=== PATIENT | female | born 1960 | race Two or more races ===

== ENCOUNTER 2018-02-05 15:06 | Inpatient (IN) | payer BC ==
[~2018-02-05] VITALS: Ht 160 cm; Wt 88.9 kg
[~2018-02-05 15:06] MED LIST: ALPR1TAB7 PO; DULO60CA PO; GABA800T97 PO; INSUINJ48 SC; LISI-646 PO; METO-158 PO; OXY10CRT PO; PROAIR IN
[2018-02-05] MEDS ORDERED: ASPirin 81 mg TAB PO ONE (15:45)
[2018-02-05 16:02] LABS: Basophils # (auto) 0.1 uL; Basophils % (auto) 1.2 % (0.0-2.0); Eosinophils # (auto) 0.4 uL; Eosinophils % (auto) 4.9 % (0.0-7.0); Hematocrit 48.3 % (36.0-46.0); Lymphocytes # (auto) 2.9 uL; Lymphocytes % (auto) 34.6 % (10.0-50.0); Mean Corpuscular Hemoglobin 33.5 pg (28.0-32.0); Mean Corpuscular Hgb Conc. 35.3 g/dL (32.0-36.0); Mean Corpuscular Volume 94.9 fL (80.0-100.0); Monocytes # (auto) 0.8 uL; Monocytes % (auto) 9.6 % (0.0-12.0); Neutrophils # (auto) 4.1 uL; Neutrophils % (auto) 49.7 % (37.0-80.0); Nucleated Red Blood Cells % 0.1 %; Platelet Count (auto) 220 10^3/uL (140-450); Red Blood Cells 5.09 10^6/uL (4.0-5.20); Red Cell Distribution Width 13.3 % (11.8-14.3); White Blood Cell 8.3 10^3/uL (4.4-10.8)
[2018-02-05] MEDS ORDERED: ALBUTEROL SULF 2.5 MG/0.5ML(0.5%) NEB SOLN NEB ONE (16:15)
[2018-02-05] MEDS ORDERED: IPRATROPIUM BROM 0.5 MG/2.5ML INH SOL NEB ONE (16:15)
[2018-02-05 16:20] LABS: Alanine Aminotransferase 33 U/L (13-56); Albumin 3.9 g/dL (3.4-5.0); Anion Gap 7 (5-15); Aspartate Aminotransferase 22 U/L (15-37); BUN/Creatinine Ratio 11.8; Blood Urea Nitrogen 12 mg/dL (7-18); Calcium 8.9 mg/dL (8.5-10.1); Carbon Dioxide 27 mmol/L (21-32); Chloride 109 mmol/L (98-107); GFR African American 71 mL/min; GFR Non-African American 59 mL/min; Glucose 81 mg/dL (74-106); Potassium 4.3 mmol/L (3.5-5.1); Sodium 143 mmol/L (136-145)
[2018-02-05 16:24] LABS: INR 0.95 (0.9-1.15); Partial Thromboplastin Time 35.2 sec (23.78-33.04); Prothrombin Time 10.2 sec (9.27-12.13)
[2018-02-05 16:25] LABS: Alkaline Phosphatase 54 U/L (45-117); Bilirubin, Total 0.2 mg/dL (0.2-1.0); Total Protein 7.6 g/dL (6.4-8.2)
[2018-02-05] MEDS ORDERED: IPRATROPIUM BROM 0.5 MG/2.5ML INH SOL NEB PRN (21:00)
[2018-02-05] MEDS ORDERED: ONDANSETRON HCL 4 MG/2 ML VIAL IV PRN (21:00)
[2018-02-05] MEDS ORDERED: TEMAZEPAM 15 MG CAP PO PRN (21:00)
[2018-02-05] MEDS ORDERED: ALBUTEROL SULF 2.5 MG/0.5ML(0.5%) NEB SOLN NEB PRN (21:00)
[2018-02-05] MEDS ORDERED: ACETAMINOPHEN 325 MG TAB PO PRN (21:00)
[2018-02-05] MEDS ORDERED: NITROGLYCERIN 0.4 MG SL TAB SL PRN (21:00)
[2018-02-05] MEDS ORDERED: ALPRAZolam 0.25 MG TAB PO PRN (21:00)
[2018-02-05] MEDS ORDERED: HYDROcodone-ACET 5/325MG TAB PO PRN (21:00)
[2018-02-05] MEDS ORDERED: MORPHINE SULF INJ 2 MG/ML SYRINGE 1ML IV PRN (21:00)
[2018-02-05 21:10] VITALS: BP 145/93
[2018-02-05] MEDS ORDERED: LISI30TA36 PO (21:10)
[2018-02-05] MEDS ORDERED: PREG150C PO (21:12)
[2018-02-05] MEDS ORDERED: MELO1TAB73 PO (21:13)
[2018-02-05] MEDS ORDERED: ISOS60TA24 PO (21:18)
[2018-02-05] MEDS ORDERED: METO-158 PO (21:18)
[2018-02-05] MEDS ORDERED: ATOR10TA52 PO (21:18)
[2018-02-05] MEDS ORDERED: CLOP75TA41 PO (21:18)
[2018-02-05] MEDS ORDERED: FENO1TAB42 OR (21:18)
[2018-02-05] MEDS ORDERED: DULO60CA PO (21:18)
[2018-02-05 21:55] VITALS: BP 143/72
[2018-02-05 23:00] VITALS: BP 143/72
[2018-02-05] MEDS: ENOXAPARIN SOD 40 MG/0.4 ML SYRINGE SC SCH (23:50)
[2018-02-05] MEDS: ISOSORBIDE MONONITRATE 20 MG TAB PO SCH (23:51)
[2018-02-05] MEDS: ATORVASTATIN 20 MG TAB PO SCH (23:51)
[2018-02-05] MEDS: METOPROLOL TARTRATE 50 MG TAB PO SCH (23:52)
[2018-02-05] MEDS: GABAPENTIN 400 MG CAP PO SCH (23:52)
[2018-02-05] MEDS: FAMOTIDINE 20 MG TAB PO SCH (23:52)
[2018-02-05] MEDS: PREGABALIN CAPSULE 75 MG CAP PO SCH (23:52)
[2018-02-06 05:00] VITALS: BP 136/92
[2018-02-06] MEDS: GABAPENTIN 400 MG CAP PO SCH ×2 (05:16→14:00)
[2018-02-06 07:43] LABS: Basophils # (auto) 0.1 uL; Basophils % (auto) 0.7 % (0.0-2.0); Eosinophils # (auto) 0.4 uL; Eosinophils % (auto) 5.4 % (0.0-7.0); Hematocrit 46.5 % (36.0-46.0); Hemoglobin 16.2 g/dL (12.2-16.2); Lymphocytes # (auto) 2.1 uL; Mean Corpuscular Hemoglobin 33.5 pg (28.0-32.0); Mean Corpuscular Hgb Conc. 34.7 g/dL (32.0-36.0); Mean Corpuscular Volume 96.5 fL (80.0-100.0); Monocytes # (auto) 0.7 uL; Neutrophils # (auto) 4.1 uL; Neutrophils % (auto) 55.9 % (37.0-80.0); Nucleated Red Blood Cells % 0.1 %; Platelet Count (auto) 192 10^3/uL (140-450); Red Blood Cells 4.82 10^6/uL (4.0-5.20); Red Cell Distribution Width 13.6 % (11.8-14.3); White Blood Cell 7.4 10^3/uL (4.4-10.8)
[2018-02-06 08:02] LABS: Albumin 3.2 g/dL (3.4-5.0); BUN/Creatinine Ratio 16.2; Calcium 8.3 mg/dL (8.5-10.1)
[2018-02-06 08:04] LABS: Bilirubin, Total 0.4 mg/dL (0.2-1.0); Total Protein 6.5 g/dL (6.4-8.2)
[2018-02-06 09:00] VITALS: BP 153/81
[2018-02-06] MEDS: FAMOTIDINE 20 MG TAB PO SCH ×2 (10:00→21:58)
[2018-02-06] MEDS: ENOXAPARIN SOD 40 MG/0.4 ML SYRINGE SC SCH (10:09)
[2018-02-06] MEDS: ASPirin 81 mg TAB PO SCH (10:10)
[2018-02-06] MEDS: CLOPIDOGREL BISULFATE 75 MG TAB PO SCH (10:10)
[2018-02-06] MEDS: LISINOPRIL 20 MG TAB PO SCH (10:28)
[2018-02-06] MEDS: METOPROLOL TARTRATE 50 MG TAB PO SCH ×2 (10:29→21:49)
[2018-02-06] MEDS: PREGABALIN CAPSULE 75 MG CAP PO SCH ×2 (11:39→21:47)
[2018-02-06] MEDS: NICOTINE 21MG/24 HR TOPICAL PATCH TD SCH (11:52)
[2018-02-06] MEDS ORDERED: DEXTROSE (50%) 50ML SYRG IV PRN (12:00)
[2018-02-06] MEDS: ISOSORBIDE MONONITRATE 20 MG TAB PO SCH ×2 (12:03→21:56)
[2018-02-06 13:00] VITALS: BP 156/95
[2018-02-06 16:48] VITALS: BP 119/68
[2018-02-06] MEDS: InsuLIN REG 1unit/0.01ml Soln (100units/ml) SC SCH ×2 (17:00→21:58)
[2018-02-06] MEDS ORDERED: ACCU-CHEK COMFORT CURVE STRIP VI SCH (17:00)
[2018-02-06] MEDS: ACCU-CHEK COMFORT CURVE STRIP VI SCH ×2 (17:18→21:58)
[2018-02-06] MEDS: DULoxetine HCL 30 MG CAP PO SCH (17:18)
[2018-02-06] MEDS: ALPRAZolam 0.5 MG TAB PO SCH (21:47)
[2018-02-06] MEDS: ATORVASTATIN 20 MG TAB PO SCH (21:48)
[2018-02-06 22:00] VITALS: BP 148/87
[2018-02-07 05:00] VITALS: BP 109/64
[2018-02-07] MEDS: ALPRAZolam 0.5 MG TAB PO SCH ×3 (06:10→22:38)
[2018-02-07] MEDS: InsuLIN REG 1unit/0.01ml Soln (100units/ml) SC SCH ×4 (06:11→22:39)
[2018-02-07] MEDS: ACCU-CHEK COMFORT CURVE STRIP VI SCH ×4 (06:11→22:39)
[2018-02-07 06:55] LABS: Basophils # (auto) 0.1 uL; Basophils % (auto) 0.8 % (0.0-2.0); Eosinophils # (auto) 0.4 uL; Eosinophils % (auto) 5.5 % (0.0-7.0); Hematocrit 45.1 % (36.0-46.0); Hemoglobin 15.5 g/dL (12.2-16.2); Lymphocytes # (auto) 2.7 uL; Lymphocytes % (auto) 40.4 % (10.0-50.0); Mean Corpuscular Hemoglobin 32.6 pg (28.0-32.0); Mean Corpuscular Hgb Conc. 34.4 g/dL (32.0-36.0); Mean Corpuscular Volume 94.7 fL (80.0-100.0); Monocytes # (auto) 0.6 uL; Monocytes % (auto) 9.4 % (0.0-12.0); Neutrophils # (auto) 2.9 uL; Neutrophils % (auto) 43.9 % (37.0-80.0); Platelet Count (auto) 188 10^3/uL (140-450); Red Blood Cells 4.77 10^6/uL (4.0-5.20); Red Cell Distribution Width 13.2 % (11.8-14.3); White Blood Cell 6.6 10^3/uL (4.4-10.8)
[2018-02-07 07:14] LABS: Calcium 8.4 mg/dL (8.5-10.1); Potassium 3.7 mmol/L (3.5-5.1)
[2018-02-07 07:15] LABS: BUN/Creatinine Ratio 19.4
[2018-02-07 08:32] VITALS: BP 105/71
[2018-02-07] MEDS: ASPirin 81 mg TAB PO SCH (09:48)
[2018-02-07] MEDS: DULoxetine HCL 30 MG CAP PO SCH (09:48)
[2018-02-07] MEDS: ISOSORBIDE MONONITRATE 20 MG TAB PO SCH ×2 (09:51→22:38)
[2018-02-07] MEDS: PREGABALIN CAPSULE 75 MG CAP PO SCH ×2 (09:51→22:38)
[2018-02-07] MEDS: CLOPIDOGREL BISULFATE 75 MG TAB PO SCH (09:51)
[2018-02-07] MEDS: METOPROLOL TARTRATE 50 MG TAB PO SCH ×2 (09:51→22:39)
[2018-02-07] MEDS: LISINOPRIL 20 MG TAB PO SCH (09:52)
[2018-02-07] MEDS: ENOXAPARIN SOD 40 MG/0.4 ML SYRINGE SC SCH (09:52)
[2018-02-07] MEDS: NICOTINE 21MG/24 HR TOPICAL PATCH TD SCH (09:52)
[2018-02-07] MEDS ORDERED: DULoxetine HCL 30 MG CAP PO SCH (10:00)
[2018-02-07] MEDS: FAMOTIDINE 20 MG TAB PO SCH ×2 (10:00→22:00)
[2018-02-07] MEDS ORDERED: IOHEXOL 350 MG/ML 100ML IJ ONE (11:03)
[2018-02-07 12:06] VITALS: BP 157/94
[2018-02-07 16:29] VITALS: BP 80/53
[2018-02-07 16:34] VITALS: BP 111/62
[2018-02-07 22:00] VITALS: BP 142/73
[2018-02-07] MEDS: ATORVASTATIN 20 MG TAB PO SCH (22:38)
[2018-02-08] VITALS (7 sets, daily range): BP systolic 92–139; BP diastolic 64–79
[2018-02-08] MEDS: ALPRAZolam 0.5 MG TAB PO SCH ×2 (06:08→14:14)
[2018-02-08] MEDS: ACCU-CHEK COMFORT CURVE STRIP VI SCH ×3 (06:18→17:35)
[2018-02-08] MEDS: InsuLIN REG 1unit/0.01ml Soln (100units/ml) SC SCH ×3 (06:18→17:00)
[2018-02-08] MEDS ORDERED: ADENOSINE 75 MG in GIVE UN-DILUTED 0 ML IV STA (08:29)
[2018-02-08] MEDS: ENOXAPARIN SOD 40 MG/0.4 ML SYRINGE SC SCH (09:24)
[2018-02-08] MEDS: CLOPIDOGREL BISULFATE 75 MG TAB PO SCH (09:24)
[2018-02-08] MEDS: ASPirin 81 mg TAB PO SCH (09:24)
[2018-02-08] MEDS: DULoxetine HCL 30 MG CAP PO SCH (09:25)
[2018-02-08] MEDS: PREGABALIN CAPSULE 75 MG CAP PO SCH (09:26)
[2018-02-08] MEDS: FAMOTIDINE 20 MG TAB PO SCH (09:26)
[2018-02-08] MEDS: METOPROLOL TARTRATE 50 MG TAB PO SCH (09:26)
[2018-02-08] MEDS: ISOSORBIDE MONONITRATE 20 MG TAB PO SCH (09:26)
[2018-02-08] MEDS: LISINOPRIL 20 MG TAB PO SCH (09:26)
[2018-02-08] MEDS: NICOTINE 21MG/24 HR TOPICAL PATCH TD SCH (09:27)
[2018-03-10] MEDS ORDERED: ASPI81CH43 PO (11:21)
[2018-03-10] MEDS ORDERED: INSU1INJ14 SC (11:29)
[2018-03-10] MEDS ORDERED: OMEP20TA PO (11:30)
[2018-03-10] MEDS ORDERED: NITR0.4S29 SL (11:30)
== END 2018-02-08 18:38 | disposition home or self-care (01) | DRG 302 ==
LOC: ER 15:06 → TELE 15:07 → TELE-CENTR 21:50
PROVIDERS: ADMIT Nurse Practitioner; ATTEND Internal Medicine
DX: I25.10 Atherosclerotic heart disease of native coronary artery without angina pectoris (principal); I50.23 Acute on chronic systolic (congestive) heart failure; J44.1 Chronic obstructive pulmonary disease with (acute) exacerbation; E78.5 Hyperlipidemia, unspecified; F17.210 Nicotine dependence, cigarettes, uncomplicated; I11.0 Hypertensive heart disease with heart failure; E11.9 Type 2 diabetes mellitus without complications; I70.0 Atherosclerosis of aorta; K80.20 Calculus of gallbladder without cholecystitis without obstruction; Z82.49 Family history of ischemic heart disease and other diseases of the circulatory system; Z82.5 Family history of asthma and other chronic lower respiratory diseases; Z83.3 Family history of diabetes mellitus; Z95.1 Presence of aortocoronary bypass graft; Z95.5 Presence of coronary angioplasty implant and graft; Z79.4 Long term (current) use of insulin; Z88.8 Allergy status to other drugs, medicaments and biological substances
CPT/HCPCS: 36415; 71045; 71275; 78452; 80048; 80053; 82962; 83036; 83735; 83880; 84443; 84484; 85025; 85379; 85610; 85730; 93005; 93017; 93306; 94640; 94761; J0153; J1815

== ENCOUNTER → 2018-03-10 | Outpatient (CLI) | payer BC ==
[~2018-03-10] MED LIST changes: +ASPI81CH43 PO; +ATOR10TA52 PO; +CLOP75TA41 PO; +FENO1TAB42 OR; +INSU1INJ14 SC; +ISOS60TA24 PO; -LISI-646 PO; +LISI30TA36 PO; +MELO1TAB73 PO; +NITR0.4S29 SL; +OMEP20TA PO; +PREG150C PO
[2018-03-10 08:15] VITALS: BP 125/77
[2018-03-10 08:50] VITALS: BP 132/81
[2018-03-10 12:36] LABS: Basophils # (auto) 0.1 uL; Eosinophils # (auto) 0.5 uL; Eosinophils % (auto) 6.1 % (0.0-7.0); Hematocrit 48.2 % (36.0-46.0); Hemoglobin 16.6 g/dL (12.2-16.2); Lymphocytes # (auto) 2.2 uL; Lymphocytes % (auto) 26.5 % (10.0-50.0); Mean Corpuscular Hemoglobin 32.7 pg (28.0-32.0); Mean Corpuscular Hgb Conc. 34.4 g/dL (32.0-36.0); Mean Corpuscular Volume 94.9 fL (80.0-100.0); Monocytes # (auto) 0.6 uL; Neutrophils # (auto) 4.9 uL; Neutrophils % (auto) 59.4 % (37.0-80.0); Nucleated Red Blood Cells % 0.3 %; Platelet Count (auto) 208 10^3/uL (140-450); Red Blood Cells 5.08 10^6/uL (4.0-5.20); Red Cell Distribution Width 13.2 % (11.8-14.3); White Blood Cell 8.2 10^3/uL (4.4-10.8)
[2018-03-10 12:38] LABS: BUN/Creatinine Ratio 11.4; Calcium 8.8 mg/dL (8.5-10.1); Potassium 3.6 mmol/L (3.5-5.1)
[2018-03-10 12:44] LABS: INR 0.93 (0.9-1.15); Partial Thromboplastin Time 35.7 sec (23.78-33.04)
== END | disposition home or self-care (01) ==
LOC: Rad HDHVI 08:05
PROVIDERS: ATTEND Internal Medicine Cardiovascular Disease
DX: Z01.818 Encounter for other preprocedural examination (principal); D64.9 Anemia, unspecified; R79.1 Abnormal coagulation profile; I10 Essential (primary) hypertension; E11.9 Type 2 diabetes mellitus without complications; R94.31 Abnormal electrocardiogram [ECG] [EKG]
CPT/HCPCS: 36415; 80048; 85025; 85610; 85730; 93005; G0463

== ENCOUNTER 2018-03-11 08:30 | Inpatient (IN) | payer BC ==
[~2018-03-11] VITALS: Ht 162.6 cm; Wt 89.8 kg
[2018-03-11] MEDS ORDERED: fentaNYL CITRATE 100 MCG/2 ML VL ONE (11:20)
[2018-03-11] MEDS ORDERED: ANGIOMAX 250 MG VIAL IV ONE (11:20)
[2018-03-11] MEDS ORDERED: SODIUM CHL 0.9% 50 ML ONE (11:20)
[2018-03-11] MEDS ORDERED: MIDAZOLAM HCL 1MG/1ML-2 ML VIAL ONE (11:20)
[2018-03-11] MEDS ORDERED: LIDOCAINE 2% (LOCAL ANESTH.) PF 5ml SDV ONE (11:21)
[2018-03-11] MEDS ORDERED: IOHEXOL 350 MG/ML 100ML IJ ONE (11:21)
[2018-03-11] MEDS ORDERED: MORPHINE SULF INJ 2 MG/ML SYRINGE 1ML IV ONE (13:00)
[2018-03-11] MEDS ORDERED: NITROGLYCERIN 0.4 MG SL TAB SL PRN (13:15)
[2018-03-11] MEDS ORDERED: MORPHINE SULF INJ 2 MG/ML SYRINGE 1ML IV PRN (13:15)
[2018-03-11] MEDS ORDERED: NITROGLYCERIN 0.4 MG SL TAB SL SCH (14:00)
[2018-03-11] MEDS: IPRATROPIUM BROM 0.5 MG/2.5ML INH SOL NEB SCH (19:43)
[2018-03-11] MEDS: ALBUTEROL SULF 2.5 MG/0.5ML(0.5%) NEB SOLN NEB SCH (19:44)
[2018-03-11] MEDS ORDERED: ATORVASTATIN 20 MG TAB PO SCH (22:00)
[2018-03-11] MEDS ORDERED: MELOXICAM 7.5MG TAB PO SCH (22:00)
[2018-03-11 22:09] VITALS: BP 166/107
[2018-03-11] MEDS: METOPROLOL TARTRATE 50 MG TAB PO SCH (22:41)
[2018-03-11] MEDS: ALPRAZolam 0.25 MG TAB PO SCH (22:41)
[2018-03-11] MEDS: PREGABALIN CAPSULE 75 MG CAP PO SCH (22:41)
[2018-03-12 05:34] VITALS: BP 128/74
[2018-03-12] MEDS: ALPRAZolam 0.25 MG TAB PO SCH (06:21)
[2018-03-12] MEDS: ALBUTEROL SULF 2.5 MG/0.5ML(0.5%) NEB SOLN NEB SCH ×2 (06:53)
[2018-03-12] MEDS: IPRATROPIUM BROM 0.5 MG/2.5ML INH SOL NEB SCH ×2 (06:54)
[2018-03-12 08:00] VITALS: BP 160/91
[2018-03-12] MEDS: PREGABALIN CAPSULE 75 MG CAP PO SCH (09:44)
[2018-03-12] MEDS: METOPROLOL TARTRATE 50 MG TAB PO SCH (09:45)
[2018-03-12] MEDS ORDERED: LISINOPRIL 10 MG TAB PO SCH (10:00)
[2018-03-12] MEDS ORDERED: PANTOPRAZOLE 40 MG TAB PO SCH (10:00)
[2018-03-12] MEDS ORDERED: ISOSORBIDE MONONITRATE 60 MG TAB PO SCH (10:00)
[2018-03-12] MEDS ORDERED: FENOFIBRATE 145MG TAB PO SCH (10:00)
[2018-03-12] MEDS ORDERED: ASPirin 81 mg TAB PO SCH (10:00)
[2018-03-12] MEDS ORDERED: CLOPIDOGREL BISULFATE 75 MG TAB PO SCH (10:00)
[2018-03-12] MEDS ORDERED: DULoxetine HCL 30 MG CAP PO SCH (10:00)
== END 2018-03-12 10:20 | disposition home or self-care (01) | DRG 247 ==
LOC: CATH 08:30 → TELE-CENTR 08:31
PROVIDERS: ADMIT Internal Medicine Cardiovascular Disease; ATTEND Internal Medicine Cardiovascular Disease
PROC: B2111ZZ Fluoroscopy of Multiple Coronary Arteries using Low Osmolar Contrast (ICD-10-PCS; principal; 2018-03-11)
PROC: 027034Z Dilation of Coronary Artery, One Artery with Drug-eluting Intraluminal Device, Percutaneous Approach (ICD-10-PCS; 2018-03-11)
PROC: 02703ZZ Dilation of Coronary Artery, One Artery, Percutaneous Approach (ICD-10-PCS; 2018-03-11)
PROC: 4A023N7 Measurement of Cardiac Sampling and Pressure, Left Heart, Percutaneous Approach (ICD-10-PCS; 2018-03-11)
PROC: B2181ZZ Fluoroscopy of Left Internal Mammary Bypass Graft using Low Osmolar Contrast (ICD-10-PCS; 2018-03-11)
DX: I25.110 Atherosclerotic heart disease of native coronary artery with unstable angina pectoris (principal); Z87.891 Personal history of nicotine dependence; Z98.61 Coronary angioplasty status; Z95.1 Presence of aortocoronary bypass graft
CPT/HCPCS: 92920; 92928; 93005; 93459; 94640; 99152; A6257; C1874; C1887; J2001; J2250

== ENCOUNTER 2018-07-29 14:20 | Inpatient (IN) | payer BC ==
[~2018-07-29] VITALS: Ht 162.6 cm; Wt 92.1 kg
[~2018-07-29 14:20] MED LIST changes: -GABA800T97 PO; -INSUINJ48 SC; -OXY10CRT PO; -PROAIR IN
[2018-07-29] MEDS ORDERED: ALBUTEROL SULF 2.5 MG/0.5ML(0.5%) NEB SOLN NEB ONE (15:00)
[2018-07-29] MEDS ORDERED: FUROSEMIDE 20 MG/2 ML VIAL IV ONE ×2 (15:00→20:15)
[2018-07-29] MEDS ORDERED: IPRATROPIUM BROM 0.5 MG/2.5ML INH SOL NEB ONE (15:00)
[2018-07-29 15:14] LABS: Basophils # (auto) 0.1 uL; Basophils % (auto) 0.7 % (0.0-2.0); Eosinophils # (auto) 0.7 uL; Eosinophils % (auto) 7.5 % (0.0-7.0); Hematocrit 49.3 % (36.0-46.0); Lymphocytes # (auto) 2.4 uL; Lymphocytes % (auto) 24.7 % (10.0-50.0); Mean Corpuscular Hemoglobin 32.4 pg (28.0-32.0); Mean Corpuscular Hgb Conc. 34.4 g/dL (32.0-36.0); Monocytes # (auto) 0.9 uL; Monocytes % (auto) 9.1 % (0.0-12.0); Neutrophils # (auto) 5.6 uL; Nucleated Red Blood Cells % 0.1 %; Platelet Count (auto) 222 10^3/uL (140-450); Red Blood Cells 5.25 10^6/uL (4.0-5.20); Red Cell Distribution Width 13.5 % (11.8-14.3); White Blood Cell 9.7 10^3/uL (4.4-10.8)
[2018-07-29] MEDS ORDERED: methylPREDNISolone SOD SUCC 125 MG/2 ML VL IV ONE (15:15)
[2018-07-29 15:22] LABS: Alanine Aminotransferase 29 U/L (13-56); Albumin 3.8 g/dL (3.4-5.0); Anion Gap 6 (5-15); Aspartate Aminotransferase 15 U/L (15-37); BUN/Creatinine Ratio 12.6; Blood Urea Nitrogen 11 mg/dL (7-18); Calcium 8.8 mg/dL (8.5-10.1); Carbon Dioxide 30 mmol/L (21-32); Chloride 105 mmol/L (98-107); GFR African American > 60 mL/min; GFR Non-African American > 60 mL/min; Glucose 103 mg/dL (74-106); Potassium 4.1 mmol/L (3.5-5.1); Sodium 141 mmol/L (136-145)
[2018-07-29 16:03] LABS: Alkaline Phosphatase 69 U/L (45-117); Bilirubin, Total 0.3 mg/dL (0.2-1.0); Total Protein 7.7 g/dL (6.4-8.2)
[2018-07-29] MEDS ORDERED: cefTRIAXone 1GM/50ML D5W 50 ML IV ONE (16:15)
[2018-07-29] MEDS ORDERED: AZITHROMYCIN 500MG/ 250ML 250 ML IV ONE (16:15)
[2018-07-29 16:33] LABS: Urine WBC None Seen /hpf (0 - 5)
[2018-07-29 16:47] LABS: Urine Bacteria NONE SEEN /hpf (None Seen); Urine Blood Negative /uL (Negative); Urine Specific Gravity 1.008 (1.001-1.035)
[2018-07-29] MEDS ORDERED: DEXTROSE (50%) 50ML SYRG IV PRN (17:00)
[2018-07-29] MEDS ORDERED: NITROGLYCERIN 0.4 MG SL TAB SL PRN (17:00)
[2018-07-29] MEDS ORDERED: ACETAMINOPHEN 500 MG TAB PO PRN (17:00)
[2018-07-29] MEDS ORDERED: MORPHINE SULFATE 4 MG/ML SYR/VIAL IV PRN ×2 (17:00)
[2018-07-29] MEDS ORDERED: LACTULOSE 20Gm/30ML SOLN PO PRN (17:00)
[2018-07-29] MEDS ORDERED: OSELTAMIVIR 75 MG CAP PO ONE (17:00)
[2018-07-29] MEDS ORDERED: TEMAZEPAM 15 MG CAP PO PRN (17:00)
[2018-07-29] MEDS: ACCU-CHEK COMFORT CURVE STRIP VI SCH ×2 (17:00→23:46)
[2018-07-29] MEDS ORDERED: PROMETHAZINE HCL 25 MG/ML 1ML IV PRN (17:00)
[2018-07-29] MEDS ORDERED: ALBUTEROL SULF 2.5 MG/0.5ML(0.5%) NEB SOLN NEB PRN (17:00)
[2018-07-29] MEDS: InsuLIN REG 1unit/0.01ml Soln (100units/ml) SC SCH ×2 (18:05→23:51)
[2018-07-29] MEDS: ALBUTEROL SULF 2.5 MG/0.5ML(0.5%) NEB SOLN NEB SCH (19:27)
[2018-07-29] MEDS: IPRATROPIUM BROM 0.5 MG/2.5ML INH SOL NEB SCH (19:27)
[2018-07-29] MEDS ORDERED: POTASSIUM EFFERVESENT TAB 25 MEQ PO ONE (20:15)
[2018-07-29 20:45] VITALS: BP 115/70
[2018-07-29 20:47] VITALS: BP 115/70
--- NOTE | 2018-07-29 20:47 | NUR ---
Telemetry admit from IGNACIO FISHMAN admitted to Telemetry unit. Patient oriented to NATALIIA PATTERSON, primary RN, unit, room, bed, and unit policies regarding patient care and visiting hours. Patient now on continuous telemetry monitoring, tele box # 19. Patient placed on bedside oxygen 6 liters nasal cannula, oxygen saturation is 93%, weighed by bedscale and encouraged to call as needed. All questions and concerns addressed, patient verbalized understanding. Bed is locked in lowest position, side rails x 2 are up, call light is within reach, and bed alarm is on.
[2018-07-29 21:16] VITALS: BP 146/83
[2018-07-29] MEDS ORDERED: ATORVASTATIN 20 MG TAB PO SCH (22:00)
--- NOTE | 2018-07-29 22:00 | NUR ---
Respiratory note: PT STATES SHE HAS A BAD REACTION ANY STEROID MEDICATION ESPECIALLY PREDNISONE. ASSESSED PT IN ER BED 19 PRIOR TO THIS AND SAW SYMBICORT (budesonide - formoterol fumarate dihydrate) INHALER IN HER MEDICATION BAG. PT NOW STATES SHE STOPPED TAKING IT.
[2018-07-29] MEDS: LISINOPRIL 10 MG TAB PO SCH (23:41)
[2018-07-29] MEDS: ISOSORBIDE MONONITRATE 60 MG TAB PO SCH (23:42)
[2018-07-29] MEDS: ALPRAZolam 0.5 MG TAB PO SCH (23:42)
[2018-07-29] MEDS: METOPROLOL TARTRATE 50 MG TAB PO SCH (23:43)
[2018-07-29] MEDS: PREGABALIN CAPSULE 75 MG CAP PO SCH (23:43)
[2018-07-30] MEDS: IPRATROPIUM BROM 0.5 MG/2.5ML INH SOL NEB SCH ×4 (00:40→19:08)
[2018-07-30] MEDS: ALBUTEROL SULF 2.5 MG/0.5ML(0.5%) NEB SOLN NEB SCH ×4 (00:40→19:08)
--- NOTE | 2018-07-30 00:47 | NUR ---
Respiratory note: AT BEDSIDE FOR MED BERTHA ASKEW.
--- NOTE | 2018-07-30 01:30 | NUR ---
RESPIRATORY CULTURE COLLECTED Respiratory culture collected and sent to lab.
[2018-07-30] MEDS ORDERED: ALPR1TAB PO (02:00)
[2018-07-30] MEDS ORDERED: ALPR-229 PO (02:00)
[2018-07-30] MEDS ORDERED: LAMO25TA66 OR (02:02)
[2018-07-30 05:30] VITALS: BP 119/60
[2018-07-30 05:59] LABS: Cholesterol 168 mg/dL (< 200); HDL Cholesterol 55 mg/dL (40-59); LDL Cholesterol 99 mg/dL (< 100); Triglycerides 75 mg/dL (< 150)
[2018-07-30] MEDS: ALPRAZolam 0.5 MG TAB PO SCH ×3 (06:02→22:33)
[2018-07-30] MEDS: ACCU-CHEK COMFORT CURVE STRIP VI SCH ×4 (06:05→22:54)
--- NOTE | 2018-07-30 06:14 | NUR ---
HOSPITALIST PAGED RE: LUNG SOUNDS Hospitalist paged regarding adventitious lung sounds. Awaiting call back.
[2018-07-30] MEDS: InsuLIN REG 1unit/0.01ml Soln (100units/ml) SC SCH ×4 (06:24→22:54)
--- NOTE | 2018-07-30 06:46 | NUR ---
HOME MEDICATIONS TAKEN DOWN TO PHARMACY Patients home medications have been collected and taken down to pharmacy. A copy was given to pharmacy, patient, and placed in the hard chart. Patient has POM band on.
--- NOTE | 2018-07-30 06:55 | NUR ---
HOSPITALIST RETURNED CALL Hospitalist returned call, updated on patient status and reason for call, no new orders received. Will continue to monitor patient.
--- NOTE | 2018-07-30 07:40 | NUR ---
Opening Shift Note Assumed care of patient, awake and alert. No S/S of distress/SOB or pain. N/c intact and delivering O2. HOB semi-fuller's, at lowest setting, side-rails up x2 for safety. Call light on hand, instructed on POC and to call for assist PRN, will continue to monitor for changes Q1hr and PRN.
--- NOTE | 2018-07-30 07:45 | NUR ---
CLOSING SHIFT NOTE Endorsed patient care to Isabelle WHITTINGTON.
[2018-07-30 08:00] VITALS: BP 109/73
[2018-07-30 09:00] VITALS: BP 120/64
[2018-07-30] MEDS: Fenofibrate 145 MG OR SCH (10:00)
[2018-07-30] MEDS: OSELTAMIVIR 75 MG CAP PO SCH ×2 (10:00→22:00)
[2018-07-30] MEDS: PREGABALIN CAPSULE 75 MG CAP PO SCH ×2 (10:00→22:34)
[2018-07-30] MEDS ORDERED: IOHEXOL 350 MG/ML 100ML IJ ONE (10:18)
[2018-07-30] MEDS: LEVOFLOXACIN 500MG 100 ML IV SCH (11:34)
[2018-07-30] MEDS: FUROSEMIDE 40 MG/4 ML VIAL IV SCH (11:36)
[2018-07-30] MEDS: ISOSORBIDE MONONITRATE 60 MG TAB PO SCH ×2 (11:37→22:32)
[2018-07-30] MEDS: LISINOPRIL 10 MG TAB PO SCH ×2 (11:37→22:33)
[2018-07-30] MEDS: METOPROLOL TARTRATE 50 MG TAB PO SCH ×2 (11:38→22:34)
[2018-07-30] MEDS: PANTOPRAZOLE 40 MG TAB PO SCH (11:38)
[2018-07-30] MEDS: DULoxetine HCL 30 MG CAP PO SCH (11:38)
[2018-07-30] MEDS: CLOPIDOGREL BISULFATE 75 MG TAB PO SCH (11:39)
[2018-07-30] MEDS: ASPirin 81 mg TAB PO SCH (11:39)
[2018-07-30] MEDS: ENOXAPARIN SOD 40 MG/0.4 ML SYRINGE SC SCH (11:40)
[2018-07-30] MEDS: NICOTINE 14 MG/24HR TOPICAL PATCH TD SCH (12:30)
[2018-07-30 13:00] VITALS: BP 124/68
[2018-07-30 17:00] VITALS: BP 130/69
--- NOTE | 2018-07-30 19:30 | NUR ---
Opening Shift Note Assumed care of patient, awake and alert x4. No S/S of distress/SOB noted. Patient is on 4 liters nasal cannula. Patient complains of pain on her upper back (pain scale 8/10), will medicate patient as ordered. Instructed on plan of care and to call for assistance as needed. Bed is locked in lowest position, side rails x 2 are up, call light is within reach, and bed alarm is on.
[2018-07-30] MEDS: HYDROcodone-ACET 5/325MG TAB PO PRN (20:08)
[2018-07-30 22:00] VITALS: BP 121/74
[2018-07-30] MEDS: ATORVASTATIN 20 MG TAB PO SCH (22:33)
[2018-07-31] MEDS: IPRATROPIUM BROM 0.5 MG/2.5ML INH SOL NEB SCH ×4 (00:41→19:27)
[2018-07-31] MEDS: ALBUTEROL SULF 2.5 MG/0.5ML(0.5%) NEB SOLN NEB SCH ×4 (00:42→19:27)
--- NOTE | 2018-07-31 01:14 | NUR ---
Rounds Patient sleeping with symmetrical chest rise and fall. No S/S of distress/SOB or pain noted. Bed is locked in lowest position, side rails x 2 are up, call light is within reach, and bed alarm is on.
[2018-07-31 05:40] VITALS: BP 102/59
[2018-07-31 06:09] LABS: BUN/Creatinine Ratio 24.2; Calcium 8.3 mg/dL (8.5-10.1); Potassium 4.1 mmol/L (3.5-5.1)
[2018-07-31] MEDS: ALPRAZolam 0.5 MG TAB PO SCH ×3 (06:13→22:29)
[2018-07-31] MEDS: ACCU-CHEK COMFORT CURVE STRIP VI SCH ×4 (06:13→22:00)
[2018-07-31] MEDS: InsuLIN REG 1unit/0.01ml Soln (100units/ml) SC SCH ×4 (06:13→22:30)
--- NOTE | 2018-07-31 07:26 | NUR ---
CLOSING SHIFT NOTE Endorsed patient care to PK Torres.
--- NOTE | 2018-07-31 07:54 | NUR ---
RECEIVED PATIENT ALERT AND ORIENTED X4, NOT IN DISTRESS, CRACKLE SOUNDS IN BILATERAL LUNG SOUNDS, RR=18 SAT=93% RA, A FIB R=65 ON TELE MONITOR, DENIED CHEST PAIN OR DISCOMFORT, ABDOMEN SOFT WITH ACTIVE BS, LAST BM=07/29/18 REPORTED, GENERALIZED WEAKNESS, NOTED, SKIN INTACT WARM TO TOUCH OLD SURGICAL SCARES ON MID CHEST AND UPPER ABDOMEN NOTED, RADIAL AND PEDAL PULSES PALPABLE, RESTING ON BED, HEAD OF BED ELEVATED, BED ON LOWER POSITION, RAILS UP X2, CALL LIGHT ON REACH, WILL CONTINUE MONITORING. Addendum: 07/31/18 at 0859 by Aiden Marin RN wrong patient
--- NOTE | 2018-07-31 08:00 | NUR ---
RECEIVED PATIENT ALERT AND ORIENTED X4, NOT IN DISTRESS, WHEEZING SOUNDS IN BILATERAL LUNG SOUNDS, RR=18 SAT=95% RA, A FIB R=62 ON TELE MONITOR, DENIED CHEST PAIN OR DISCOMFORT, ABDOMEN SOFT WITH ACTIVE BS, LAST BM=07/29/18 REPORTED, JACKSON CATH IN PLACE PATENT AND INTACT, DRAINING CLEAR ORANG COLORED URINE, SKIN INTACT WARM TO TOUCH OLD SURGICAL SCARES ON MID CHEST AND UPPER ABDOMEN NOTED, RADIAL AND PEDAL PULSES PALPABLE, RESTING ON BED, HEAD OF BED ELEVATED, BED ON LOWER POSITION, RAILS UP X2, CALL LIGHT ON REACH, WILL CONTINUE MONITORING.
[2018-07-31 09:00] VITALS: BP 118/64
--- NOTE | 2018-07-31 09:02 | NUR ---
OUT OF BED AMBULATED AROUND THE UNIT X4, TOLERATED WELL, BACK TO THE ROOM, SITTING ON THE CHAIR, TALKING ON THE PHONE AT THIS MOMENT, WILL CONTINUE MONITORING.
[2018-07-31] MEDS: LEVOFLOXACIN 500MG 100 ML IV SCH (09:58)
[2018-07-31] MEDS: NICOTINE 14 MG/24HR TOPICAL PATCH TD SCH (09:58)
[2018-07-31] MEDS: ENOXAPARIN SOD 40 MG/0.4 ML SYRINGE SC SCH (09:58)
[2018-07-31] MEDS: OSELTAMIVIR 75 MG CAP PO SCH ×2 (09:59→22:00)
[2018-07-31] MEDS: DULoxetine HCL 30 MG CAP PO SCH (09:59)
[2018-07-31] MEDS: ASPirin 81 mg TAB PO SCH (09:59)
[2018-07-31] MEDS: Fenofibrate 145 MG OR SCH (10:00)
[2018-07-31] MEDS: PREGABALIN CAPSULE 75 MG CAP PO SCH ×2 (10:01→22:31)
[2018-07-31] MEDS: ISOSORBIDE MONONITRATE 60 MG TAB PO SCH ×2 (10:01→22:29)
[2018-07-31] MEDS: METOPROLOL TARTRATE 50 MG TAB PO SCH ×2 (10:02→23:44)
[2018-07-31] MEDS: CLOPIDOGREL BISULFATE 75 MG TAB PO SCH (10:05)
[2018-07-31] MEDS: LISINOPRIL 10 MG TAB PO SCH ×2 (10:05→23:48)
[2018-07-31] MEDS: PANTOPRAZOLE 40 MG TAB PO SCH (10:07)
[2018-07-31] MEDS: FUROSEMIDE 40 MG/4 ML VIAL IV SCH (10:07)
--- NOTE | 2018-07-31 12:51 | NUR ---
NOT IN DISTRESS, DRNIED PAIN, TOLERATED 100% OF LUNCH TRAY, RESTING ON BED, WILL CONTINUE MONITORING.
[2018-07-31 13:00] VITALS: BP 124/68
--- NOTE | 2018-07-31 16:18 | NUR ---
RA ABG WAS DONE BY RT, [id number] REPORTED, DR. CHRISTIAN WAS CALLED AND NOTIFIED AND AWARE.
--- NOTE | 2018-07-31 19:15 | NUR ---
NOT IN DISTRESS, DENIED PAIN, REPORT WAS GIVEN TO THE WINDOWS VMWARE ENGINEER RN.
[2018-07-31] MEDS: HYDROcodone-ACET 5/325MG TAB PO PRN (20:19)
[2018-07-31 22:08] VITALS: BP 102/65
[2018-07-31] MEDS: ATORVASTATIN 20 MG TAB PO SCH (22:27)
[2018-08-01] VITALS (8 sets, daily range): BP systolic 90–135; BP diastolic 51–81
[2018-08-01] MEDS: IPRATROPIUM BROM 0.5 MG/2.5ML INH SOL NEB SCH ×4 (00:01→19:36)
[2018-08-01] MEDS: ALBUTEROL SULF 2.5 MG/0.5ML(0.5%) NEB SOLN NEB SCH ×4 (00:01→19:36)
[2018-08-01] MEDS: ALPRAZolam 0.5 MG TAB PO SCH ×3 (06:00→22:30)
--- NOTE | 2018-08-01 06:09 | NUR ---
STILL WAITING FOR CALL BACK FROM HOSPITALIST TO REPORT PATIENT'S HAVING HEMATURIA AND LOW BP, PATIENT IS ASYMPTOMATIC. WILL KEEP MONITORING
[2018-08-01] MEDS: ACCU-CHEK COMFORT CURVE STRIP VI SCH ×4 (06:36→23:01)
[2018-08-01] MEDS: InsuLIN REG 1unit/0.01ml Soln (100units/ml) SC SCH ×4 (06:36→23:03)
--- NOTE | 2018-08-01 07:01 | NUR ---
PAGED THE HOSPITALIST FOR THE 3RD TIME AND STILL WAITING FOR CALL BACK. PATIENT'S LATEST BP IS 93/63, HR IS 66, ASYMPTOMATIC, NOTICED BLOODY URINE OUTPUT, AT FIRST PATIENT THOUGHT DUE TO THE JACKSON CATHETER GETTING TAGGED, STAT LOCK CATHETER CHUA PLACED TO PREVENT GETTING CATHETER TAGGED/PULLED. THIS MORNING URINE OUTPUT IS STILL BLOODY. WAITING FOR CBC RESULTS, WILL ENDORSE TO MORNING NURSE TO CLARIFY THE NEED TO GIVE BLOOD THINNERS WITH THE PRESENCE OF HEMATURIA.
--- NOTE | 2018-08-01 07:09 | NUR ---
RECEIVED CALL BACK FROM HOSPITALIST AND NOTIFIED OF HYPOTENSION AND ONGOING HEMATURIA, ORDERED TO PUT IN UROLOGY CONSULT. CLARIFIED IF BLOOD THINNERS WILL BE HELD AND PER HOSPITALIST WILL HAVE TO WAIT AND CLARIFY WITH UROLOGIST AND ATTENDING MD. WILL ENDORSE TO MORNING RN.
[2018-08-01 07:26] LABS: Calcium 8.4 mg/dL (8.5-10.1); Potassium 3.8 mmol/L (3.5-5.1)
[2018-08-01 07:28] LABS: BUN/Creatinine Ratio 30.4
[2018-08-01] MEDS: CLOPIDOGREL BISULFATE 75 MG TAB PO SCH (10:28)
[2018-08-01] MEDS: PANTOPRAZOLE 40 MG TAB PO SCH (10:28)
[2018-08-01] MEDS: LEVOFLOXACIN 500MG 100 ML IV SCH (10:28)
[2018-08-01] MEDS: PREGABALIN CAPSULE 75 MG CAP PO SCH ×2 (10:28→22:30)
[2018-08-01] MEDS: DULoxetine HCL 30 MG CAP PO SCH (10:28)
[2018-08-01] MEDS: ASPirin 81 mg TAB PO SCH (10:28)
[2018-08-01] MEDS: FUROSEMIDE 40 MG/4 ML VIAL IV SCH (10:28)
[2018-08-01] MEDS: ENOXAPARIN SOD 40 MG/0.4 ML SYRINGE SC SCH (10:30)
[2018-08-01] MEDS ORDERED: BUDESONIDE (INHALATION) 0.5 MG/2 ML NEB NEB ONE (10:30)
[2018-08-01] MEDS: NICOTINE 14 MG/24HR TOPICAL PATCH TD SCH (10:30)
[2018-08-01] MEDS: LISINOPRIL 10 MG TAB PO SCH (10:31)
[2018-08-01] MEDS: ISOSORBIDE MONONITRATE 60 MG TAB PO SCH (10:31)
[2018-08-01] MEDS: Fenofibrate 145 MG OR SCH (10:31)
[2018-08-01] MEDS: METOPROLOL TARTRATE 50 MG TAB PO SCH (10:31)
--- NOTE | 2018-08-01 10:34 | NUR ---
provider dr rosales at bedside
--- NOTE | 2018-08-01 10:37 | NUR ---
medications held dr preston notified of medications held due to decreased bp,
--- NOTE | 2018-08-01 10:49 | NUR ---
Sanchez catheter dc'd Order to discontinue sanchez catheter. Sanchez dc'd with clean technique following deflation of balloon. Patient tolerated well with no complaints of pain. Continue care.
--- NOTE | 2018-08-01 14:15 | NUR ---
URINATION PT ABLE TO URINATE ON HER OWN AT BEDSIDE COMMODE
[2018-08-01] MEDS: BUDESONIDE (INHALATION) 0.5 MG/2 ML NEB NEB SCH (19:36)
[2018-08-01] MEDS: ATORVASTATIN 20 MG TAB PO SCH (22:30)
[2018-08-01] MEDS: METOPROLOL TARTRATE 25 MG TAB PO SCH (22:30)
[2018-08-01] MEDS: HYDROcodone-ACET 5/325MG TAB PO PRN (23:39)
[2018-08-02] MEDS: ALBUTEROL SULF 2.5 MG/0.5ML(0.5%) NEB SOLN NEB SCH ×3 (01:25→12:50)
[2018-08-02] MEDS: IPRATROPIUM BROM 0.5 MG/2.5ML INH SOL NEB SCH ×3 (01:26→12:50)
[2018-08-02 05:00] VITALS: BP 115/88
[2018-08-02] MEDS: ALPRAZolam 0.5 MG TAB PO SCH ×2 (05:49→14:18)
--- NOTE | 2018-08-02 06:08 | NUR ---
END OF SHIFT NOTE No episodes of hypotension, urine appears tyesha color, ambulates to bathroom, norco given x 1 for back and neck pain.
[2018-08-02] MEDS: BUDESONIDE (INHALATION) 0.5 MG/2 ML NEB NEB SCH (06:38)
[2018-08-02] MEDS: ACCU-CHEK COMFORT CURVE STRIP VI SCH ×2 (06:48→12:08)
[2018-08-02] MEDS: InsuLIN REG 1unit/0.01ml Soln (100units/ml) SC SCH ×2 (06:48→12:06)
--- NOTE | 2018-08-02 07:30 | NUR ---
Opening Shift Note Assumed care of patient, awake and alert sitting up in bed. No S/S of distress/SOB or pain. Instructed on POC and to call for assist PRN, will continue to monitor for changes Q1hr and PRN.
[2018-08-02 09:00] VITALS: BP 105/68
[2018-08-02] MEDS: LEVOFLOXACIN 500MG 100 ML IV SCH (09:37)
[2018-08-02] MEDS: DULoxetine HCL 30 MG CAP PO SCH (09:37)
[2018-08-02] MEDS: PREGABALIN CAPSULE 75 MG CAP PO SCH (09:42)
[2018-08-02] MEDS: PANTOPRAZOLE 40 MG TAB PO SCH (09:43)
[2018-08-02] MEDS: METOPROLOL TARTRATE 25 MG TAB PO SCH (09:43)
[2018-08-02] MEDS: CLOPIDOGREL BISULFATE 75 MG TAB PO SCH (09:43)
[2018-08-02] MEDS: ASPirin 81 mg TAB PO SCH (09:44)
[2018-08-02] MEDS: HYDROcodone-ACET 5/325MG TAB PO PRN (09:46)
[2018-08-02] MEDS ORDERED: LISINOPRIL 20 MG TAB PO SCH (10:00)
[2018-08-02] MEDS ORDERED: ISOSORBIDE MONONITRATE 60 MG TAB PO SCH (10:00)
[2018-08-02] MEDS ORDERED: FUROSEMIDE 40 MG TAB PO SCH (10:00)
[2018-08-02] MEDS: Fenofibrate 145 MG OR SCH (10:00)
[2018-08-02 11:31] VITALS: BP 105/68
[2018-08-02 13:22] VITALS: BP 130/79
--- NOTE | 2018-08-02 13:30 | NUR ---
Lead Electrical Controls Engineer follow-up Phone call to Dr. Kerr for follow-up [phone]. Appointments are being scheduled for October. However Somers will follow up with patient 08/03/18 regarding appointment availability.
--- NOTE | 2018-08-02 16:00 | NUR ---
Discharge instructions given as ordered. Encourage to follow up with PMD as instructed. Patient to call to make appointment with Dr. Kerr. All questions and concerns addressed. Patient verbalized understanding. Medication reconciliation form completed and copy given to patient. Home medications held in Pharmacy returned to patient. IV removed with catheter intact and pressure dressing applied. Telemetry unit returned to [facility]. Patient taken to vehicle via wheelchair with all personal belongings, accompanied by staff and family member. No distress noted at time of departure.
--- NOTE | 2018-08-02 17:30 | NUR ---
Oxygen delivered at bedside. Patient is now awaiting transport.
[2018-08-02 17:36] VITALS: BP 86/51
== END 2018-08-02 18:00 | disposition home or self-care (01) | DRG 291 ==
LOC: ER 14:20 → TELE 16:57 → TELE-CENTR 20:48
PROVIDERS: ADMIT Internal Medicine; ATTEND Internal Medicine
DX: I11.0 Hypertensive heart disease with heart failure (principal); J18.9 Pneumonia, unspecified organism; J96.00 Acute respiratory failure, unspecified whether with hypoxia or hypercapnia; J44.0 Chronic obstructive pulmonary disease with (acute) lower respiratory infection; J44.1 Chronic obstructive pulmonary disease with (acute) exacerbation; E11.51 Type 2 diabetes mellitus with diabetic peripheral angiopathy without gangrene; I50.43 Acute on chronic combined systolic (congestive) and diastolic (congestive) heart failure; E78.5 Hyperlipidemia, unspecified; F17.210 Nicotine dependence, cigarettes, uncomplicated; G47.30 Sleep apnea, unspecified; I25.10 Atherosclerotic heart disease of native coronary artery without angina pectoris; I25.5 Ischemic cardiomyopathy; M06.9 Rheumatoid arthritis, unspecified; M79.7 Fibromyalgia; G89.29 Other chronic pain; R91.1 Solitary pulmonary nodule; E66.9 Obesity, unspecified; Z82.49 Family history of ischemic heart disease and other diseases of the circulatory system; Z82.5 Family history of asthma and other chronic lower respiratory diseases; Z83.3 Family history of diabetes mellitus; Z95.1 Presence of aortocoronary bypass graft; Z95.5 Presence of coronary angioplasty implant and graft; Z71.6 Tobacco abuse counseling; Z68.34 Body mass index [BMI] 34.0-34.9, adult
CPT/HCPCS: 36415; 36600; 71045; 71046; 71275; 80048; 80053; 80061; 81001; 82805; 82962; 83036; 83605; 83880; 84484; 85025; 87040; 87070; 87205; 87804; 93005; 94640; 96365; 96367; 96375; 97116; 97163; 97530; A6257; G0378; J0696; J1815; J1956

== ENCOUNTER 2018-11-12 12:12 | Inpatient (IN) | payer BC ==
[~2018-11-12] VITALS: Ht 162.6 cm; Wt 92.9 kg
[~2018-11-12 12:12] MED LIST changes: +ALPR-229 PO; -ALPR1TAB7 PO; +LAMO25TA66 OR
[2018-11-12 12:53] LABS: Basophils # (auto) 0.1 uL; Basophils % (auto) 1.1 % (0.0-2.0); Eosinophils # (auto) 0.5 uL; Eosinophils % (auto) 5.1 % (0.0-7.0); Hematocrit 50.2 % (36.0-46.0); Hemoglobin 17.3 g/dL (12.2-16.2); Lymphocytes # (auto) 2.8 uL; Lymphocytes % (auto) 27.7 % (10.0-50.0); Mean Corpuscular Hemoglobin 32.2 pg (28.0-32.0); Mean Corpuscular Hgb Conc. 34.5 g/dL (32.0-36.0); Mean Corpuscular Volume 93.5 fL (80.0-100.0); Monocytes # (auto) 0.9 uL; Monocytes % (auto) 8.6 % (0.0-12.0); Neutrophils # (auto) 5.8 uL; Neutrophils % (auto) 57.5 % (37.0-80.0); Nucleated Red Blood Cells % 0.1 %; Platelet Count (auto) 241 10^3/uL (140-450); Red Blood Cells 5.37 10^6/uL (4.0-5.20); Red Cell Distribution Width 13.4 % (11.8-14.3)
[2018-11-12 13:04] LABS: INR 0.95 (0.9-1.15); Partial Thromboplastin Time 29.9 sec (23.78-33.04); Prothrombin Time 10.2 sec (9.27-12.13)
[2018-11-12 13:12] LABS: Alanine Aminotransferase 39 U/L (13-56); Anion Gap 8 (5-15); Aspartate Aminotransferase 14 U/L (15-37); BUN/Creatinine Ratio 11.2; Blood Urea Nitrogen 11 mg/dL (7-18); Calcium 9.2 mg/dL (8.5-10.1); Carbon Dioxide 29 mmol/L (21-32); Chloride 102 mmol/L (98-107); GFR African American 75 mL/min; GFR Non-African American 62 mL/min; Glucose 263 mg/dL (74-106); Potassium 3.5 mmol/L (3.5-5.1); Sodium 139 mmol/L (136-145)
[2018-11-12 13:15] LABS: Urine WBC None Seen /hpf (0 - 5)
[2018-11-12 13:17] LABS: Alkaline Phosphatase 106 U/L (45-117); Bilirubin, Total 0.3 mg/dL (0.2-1.0); Total Protein 7.7 g/dL (6.4-8.2)
[2018-11-12 13:24] LABS: Urine Bacteria NONE SEEN /hpf (None Seen); Urine Blood Negative /uL (Negative); Urine Specific Gravity 1.007 (1.001-1.035)
[2018-11-12] MEDS ORDERED: DEXTROSE (50%) 50ML SYRG IV PRN (14:30)
[2018-11-12] MEDS ORDERED: NITROGLYCERIN 0.4 MG SL TAB SL PRN (14:30)
[2018-11-12] MEDS ORDERED: ACETAMINOPHEN 500 MG TAB PO PRN (14:30)
[2018-11-12] MEDS: SODIUM CHLORIDE 0.9% 1,000 ML IV SCH (14:30)
[2018-11-12] MEDS ORDERED: MORPHINE SULF INJ 2 MG/ML SYRINGE 1ML IV PRN (14:30)
[2018-11-12] MEDS ORDERED: PROMETHAZINE HCL 25 MG/ML 1ML IV PRN (14:30)
[2018-11-12] MEDS ORDERED: ASPirin 81 mg TAB PO ONE (14:45)
[2018-11-12] MEDS ORDERED: CLOPIDOGREL BISULFATE 75 MG TAB PO ONE (14:45)
[2018-11-12] MEDS ORDERED: ALPRAZolam 0.5 MG TAB PO ONE (15:00)
[2018-11-12] MEDS ORDERED: METOPROLOL TARTRATE 50 MG TAB PO ONE (15:00)
[2018-11-12] MEDS ORDERED: LISINOPRIL 20 MG TAB PO ONE (15:00)
[2018-11-12] MEDS ORDERED: PREGABALIN CAPSULE 75 MG CAP PO ONE (15:00)
[2018-11-12] MEDS ORDERED: ENOXAPARIN SOD 40 MG/0.4 ML SYRINGE SC ONE (15:00)
[2018-11-12] MEDS: DULoxetine HCL 30 MG CAP PO SCH (15:08)
[2018-11-12 15:47] LABS: Alcohol, Urine < 3.0 mg/dL (0-5); Amphetamine Screen, Urine NEGATIVE (NEGATIVE); Barbiturate Scree,Urine NEGATIVE (NEGATIVE); Benzodiazephine Screen, Urine NEGATIVE (NEGATIVE); Cannabinoid Screen, Urine NEGATIVE (NEGATIVE); Cocaine Screen, Urine NEGATIVE (NEGATIVE); Opiate Scree,Urine NEGATIVE (NEGATIVE); Phencyclidine Screen, Urine NEGATIVE (NEGATIVE)
--- NOTE | 2018-11-12 16:30 | NUR ---
ADMIT PATIENT ARRIVED TO THE FLOOR FROM THE ED. NO REPORT RECEIVED. PATIENT HAS AN IV IN THE LEFT AC. SHE IS ALERT AND ORIENTED. NO S/SX OF DISTRESS OR PAIN. 2L O2 VIA NC. SKIN IS INTACT. PATIENT STATED SHE HAS HAD NUMBNESS TO HER FACE AND BOTH ARMS OFF AND ON BUT THE FACIAL NUMBNESS IS IMPROVING. ORIENTED TO ROOM AND CALL LIGHT.
[2018-11-12 17:53] VITALS: BP 123/66
--- NOTE | 2018-11-12 18:00 | NUR ---
MEDICATIONS PATIENT IS UNABLE TO REMEMBER THE MEDICATIONS SHE TAKES AT HOME BUT SHE SAID IT IS THE SAME HER PREVIOUS VISIT IN JULY EXCEPT THAT LASIX 40 MG PO DAILY WAS ADDED.
[2018-11-12] MEDS ORDERED: FURO40TA4 PO (18:35)
[2018-11-12] MEDS: InsuLIN REG 1unit/0.01ml Soln (100units/ml) SC SCH ×2 (18:48→22:00)
[2018-11-12] MEDS: ACCU-CHEK COMFORT CURVE STRIP VI SCH ×2 (18:48→20:09)
[2018-11-12] MEDS: PREGABALIN CAPSULE 75 MG CAP PO SCH (20:07)
[2018-11-12] MEDS: traMADol HCL 50 MG TAB PO PRN (20:07)
[2018-11-12] MEDS: ALPRAZolam 0.5 MG TAB PO SCH (20:08)
[2018-11-12] MEDS: ATORVASTATIN 20 MG TAB PO SCH (20:08)
[2018-11-12 21:47] VITALS: BP 93/54
[2018-11-12] MEDS ORDERED: ISOSORBIDE MONONITRATE 60 MG TAB PO SCH (22:00)
[2018-11-12] MEDS ORDERED: lamoTRIgine 100 MG TAB PO SCH (22:00)
[2018-11-12] MEDS: METOPROLOL TARTRATE 50 MG TAB PO SCH (22:00)
--- NOTE | 2018-11-12 22:21 | NUR ---
NEURO CONSULT DR NYE AT BEDSIDE FOR NEURO CONSULT NO NEW ORDERS AT THIS TIME.
[2018-11-12] MEDS ORDERED: LORazepam 2MG/ML-1ML VIAL IV PRN (22:30)
--- NOTE | 2018-11-12 23:35 | NUR ---
Respiratory note: RT RECEIVED ORDER FOR CPAP AT [facility]. RT TO PT ROOM, STATES SHE DOES HAVE A CPAP AT HOME BUT DOES NOT WEAR HER MACHINE BECAUSE SHE'S AFRAID IT'S TOO DIRTY DUE TO DUST, CATS AND DOGS IN HOUSE. PT STATES SHE WOULD BE WILLING TO TRY OUR MACHINE LATER. PT AWARE TO HAVE RT PAGED WHEN READY TO TRY. PT IS CURRENTLY ON 3L N/C SPO2 93% FAINT SCATTERED CRACKLES HEARD T/O POSTERIORLY. NO DISTRESS NOTED.
[2018-11-13 01:23] VITALS: BP 93/54
[2018-11-13] MEDS: SODIUM CHLORIDE 0.9% 1,000 ML IV SCH ×3 (03:00→23:45)
[2018-11-13 05:13] VITALS: BP 80/49
[2018-11-13] MEDS: InsuLIN REG 1unit/0.01ml Soln (100units/ml) SC SCH ×4 (06:17→22:14)
[2018-11-13] MEDS: ACCU-CHEK COMFORT CURVE STRIP VI SCH ×4 (06:17→22:14)
--- NOTE | 2018-11-13 06:25 | NUR ---
Respiratory note: PT NOT WEARING CPAP AT THIS TIME. CPAP AND BEDSIDE POX AT BEDSIDE. HR 81, RR 16, POX 94% ON 2 L NC, BS REVEAL IE WHEEZES. SPOKE TO RN ABOUT GETTING A PRN MED NEB TX ORDERED. WILL CONTINUE TO TO TOUCH BASE WITH RN AND PT.NO SIGNS OR SYMPTOMS OF RESPIRATORY DISTRESS NOTED AT THIS TIME. PT INFORMED TO HIT CALL BUTTON IF FEELING SOB OR WHEEZING.
[2018-11-13] MEDS ORDERED: ALBUTEROL SULF 2.5 MG/0.5ML(0.5%) NEB SOLN NEB PRN (06:45)
--- NOTE | 2018-11-13 07:30 | NUR ---
OPENING SHIFT PATIENT AWAKE, ALERT, AND ORIENTED X4. RESPIRATIONS EVEN AND UNLABORED. NO S/S OF DISTRESS, SOB, OR PAIN. DISCUSSED POC WITH PATIENT, PATIENT VERBALIZED UNDERSTANDING. BED IS IN LOWEST POSITION, SIDE RAILS UPX2, AND CALL LIGHT WITHIN REACH. WILL CONTINUE TO MONITOR Q1 HOUR AND PRN.
--- NOTE | 2018-11-13 08:21 | NUR ---
DR. BECKETT AT BEDSIDE MSherry DISCUSSING POC WITH PATIENT PATIENT VERBALIZED UNDERSTANDING LOWER EXTREMITY ULTRASOUND WILL BE ORDERED CONFIRMED PATIENT DID NOT HAVE A HEART ATTACK
--- NOTE | 2018-11-13 09:23 | NUR ---
PATIENT OFF UNIT TO MRI PATIENT TAKEN OFF UNIT BY KARYN, STAFF MEMBER, FOR BRAIN MRI NO S/S DISTRESS, SOB, OR PAIN AT TIME OF DEPARTURE
[2018-11-13 09:29] VITALS: BP 90/54
--- NOTE | 2018-11-13 09:50 | NUR ---
Respiratory note: PT NOT IN ROOM AT THIS TIME. CPAP AND CONTINUOUS PULSE STANDBY AT BEDSIDE.
[2018-11-13] MEDS ORDERED: ENOXAPARIN SOD 40 MG/0.4 ML SYRINGE SC SCH (10:00)
[2018-11-13] MEDS: TRICOR OR SCH (10:00)
--- NOTE | 2018-11-13 10:03 | NUR ---
PATIENT BACK ON UNIT NO S/S OF DISTRESS, SOB, OR PAIN WILL CONTINUE TO MONITOR Q1 HOUR AND PRN
--- NOTE | 2018-11-13 10:03 | NUR ---
SIGNED AMA TO SMOKE PLACED IN HARD CHART
[2018-11-13] MEDS: LISINOPRIL 20 MG TAB PO SCH ×2 (10:48→22:09)
[2018-11-13] MEDS: PANTOPRAZOLE 40 MG TAB PO SCH (10:49)
[2018-11-13] MEDS: DULoxetine HCL 30 MG CAP PO SCH (10:49)
[2018-11-13] MEDS: CLOPIDOGREL BISULFATE 75 MG TAB PO SCH (10:49)
[2018-11-13] MEDS: PREGABALIN CAPSULE 75 MG CAP PO SCH ×2 (10:49→22:08)
[2018-11-13] MEDS: ASPirin 81 mg TAB PO SCH (10:50)
[2018-11-13] MEDS: METOPROLOL TARTRATE 50 MG TAB PO SCH ×2 (10:50→22:09)
[2018-11-13] MEDS: ALPRAZolam 0.5 MG TAB PO SCH ×2 (10:51→22:08)
[2018-11-13 12:42] VITALS: BP 100/66
--- NOTE | 2018-11-13 14:50 | NUR ---
CALLED DR. Gracia ZHENG TO INFORM M.Marcy. PATIENT'S D DIMER LAB VALUE IS ELEVATED (0.57) LEFT A MESSAGE FOR Laine TO CALL THIS R.N. BACK WILL AWAIT MJunaid. CALL BACK
[2018-11-13 16:38] VITALS: BP 90/46
--- NOTE | 2018-11-13 18:33 | NUR ---
PATIENT OFF UNIT LEFT TO SMOKE SIGNED AMA IN HARD CHART
--- NOTE | 2018-11-13 19:30 | NUR ---
END OF SHIFT PATIENT RESTING IN BED. NO S/S OF DISTRESS, SOB, OR PAIN. RESPIRATIONS EVEN AND UNLABORED. BED IS IN LOWEST POSITION, SIDE RAILS UP X2, AND CALL LIGHT WITHIN REACH. CARE ENDORSED TO RESTRICTIVE PREPARATION OPERATOR R.N.
--- NOTE | 2018-11-13 19:35 | NUR ---
Opening Shift Note Received report from Tracy WHITTINGTON. Assumed care of patient, awake and alert. No S/S of distress/SOB. Complaining of neck, shoulder and spine pain, will give medication. Instructed on POC and to call for assist PRN, will continue to monitor for changes Q1hr and PRN.
[2018-11-13] MEDS: traMADol HCL 50 MG TAB PO PRN (20:43)
[2018-11-13 22:00] VITALS: BP 110/69
[2018-11-13] MEDS: ATORVASTATIN 20 MG TAB PO SCH (22:09)
--- NOTE | 2018-11-13 22:30 | NUR ---
RT NOTE RT SAW PT TO DISCUSS HER CPAP ORDER. THERE IS A CPAP AND POX IN THE ROOM READY FOR USE, BUT THE PT HAS NOT WANTED TO GO ON IT. PT STATES THAT SHE STARTED USING CPAP IN 2008, BUT HER EQUIPMENT IS OLD AND HER HOME HAS A LOT OF DUST AND PET DANDER SO SHE STOPPED USING HERE CPAP TWO YEARS AGO. PT KNOWS TO HAVE RT PAGED IF SHE CHANGES HER MIND AND DECIDES SHE WANTS TO TRY THE CPAP.
[2018-11-14 05:00] VITALS: BP 99/66
--- NOTE | 2018-11-14 05:15 | NUR ---
Off Unit Patient went down to smoke.
[2018-11-14] MEDS: InsuLIN REG 1unit/0.01ml Soln (100units/ml) SC SCH ×4 (06:46→21:58)
[2018-11-14] MEDS: ACCU-CHEK COMFORT CURVE STRIP VI SCH ×4 (06:46→21:49)
[2018-11-14 09:41] VITALS: BP 134/89
[2018-11-14] MEDS: TRICOR OR SCH (10:00)
[2018-11-14] MEDS: ASPirin 81 mg TAB PO SCH (10:10)
[2018-11-14] MEDS: DULoxetine HCL 30 MG CAP PO SCH (10:10)
[2018-11-14] MEDS: METOPROLOL TARTRATE 50 MG TAB PO SCH ×2 (10:11→21:49)
[2018-11-14] MEDS: PREGABALIN CAPSULE 75 MG CAP PO SCH ×2 (10:11→21:48)
[2018-11-14] MEDS: PANTOPRAZOLE 40 MG TAB PO SCH (10:12)
[2018-11-14] MEDS: LISINOPRIL 20 MG TAB PO SCH ×2 (10:12→21:48)
[2018-11-14] MEDS: ALPRAZolam 0.5 MG TAB PO SCH ×2 (10:12→21:47)
[2018-11-14] MEDS: CLOPIDOGREL BISULFATE 75 MG TAB PO SCH (10:23)
[2018-11-14 12:57] VITALS: BP 94/58
[2018-11-14 16:40] VITALS: BP 119/64
[2018-11-14] MEDS: SODIUM CHLORIDE 0.9% 1,000 ML IV SCH (17:14)
--- NOTE | 2018-11-14 19:20 | NUR ---
Opening Shift Note Received report from Zahraa WHITTINGTON. Assumed care of patient, awake and alert. No S/S of distress/SOB or pain. Instructed on POC and to call for assist PRN, will continue to monitor for changes Q1hr and PRN.
--- NOTE | 2018-11-14 21:45 | NUR ---
Patient refused Tele psych consult at this time, states she will do it tomorrow.
[2018-11-14] MEDS: ATORVASTATIN 20 MG TAB PO SCH (21:48)
[2018-11-14 22:00] VITALS: BP 142/90
--- NOTE | 2018-11-14 22:25 | NUR ---
PT PLACED ON HOSPITAL CPAP UNIT ON THE FOLLOWING SETTINGS: APAP 5-15 CMH20 WITH A 4 LPM OXYGEN BLEED IN. CPAP PLUGGED INTO RED OUTLET, PULSE OX AT BEDSIDE AND WATER CHAMBER FILLED ADEQUATELY. PT IS WEARING A SIZE MEDIUM FACIAL MASK. PT IS TOLERATING CPAP WELL, SHE FELL ASLEEP IMMEDIATELY AFTER PLACING IT ON HER. HR 57 RR 16 POX 91%. WILL CONT TO MONITOR.
--- NOTE | 2018-11-15 04:05 | NUR ---
Respiratory note: PT FOUND OFF CPAP AND ASLEEP. RN STATED THAT SHE TOOK THE PT OFF AROUND 3 AM.
[2018-11-15 05:00] VITALS: BP 123/64
--- NOTE | 2018-11-15 06:26 | NUR ---
PRN [place] TX NOT INDICATED AT THIS TIME. PT IS AWAKE, ALERT AND ORIENTED. PT IS ON RA AT THIS MOMENT. 93% O2 SATS, HR 62 BPM, RR16. BS ARE CLEAR TO AUSCULTATION. SKIN IS DRY AND WARM TO THE TOUCH. PT DENIES SOB OR ANY OTHER RESPIRATORY DISTRESS. PT INSTRUCTED TO CALL IF M,N TX IS INDICATED. PT VERBALIZED UNDERSTANDING. WILL CONTINUE TO MONITOR PT.
[2018-11-15] MEDS: SODIUM CHLORIDE 0.9% 1,000 ML IV SCH ×4 (06:30→22:35)
[2018-11-15] MEDS: InsuLIN REG 1unit/0.01ml Soln (100units/ml) SC SCH ×4 (06:55→22:00)
[2018-11-15] MEDS: ACCU-CHEK COMFORT CURVE STRIP VI SCH ×4 (06:55→22:30)
--- NOTE | 2018-11-15 07:26 | NUR ---
Care endorsed to Abi WHITTINGTON.
--- NOTE | 2018-11-15 08:15 | NUR ---
PT RESTING IN BED. PT A AND O X4. PT REPORTS SHE WOULD LIKE TO GO OUTSIDE TO SMOKE AND HER IS MEETING HER OUTSIDE. PT ALREADY SIGNED AMA AND IS IN CHART. PT REPORTS NO DISTRESS AT THIS TIME. SPOKE WITH DR BATES, PT IS TO HAVE BILATERAL PERIPHERAL ANGIOGRAM TOMORROW, SPOKE WITH PT, PT AWARE. WILL CONTINUE TO MONITOR.
[2018-11-15 08:29] VITALS: BP 139/86
[2018-11-15] MEDS: TRICOR OR SCH (10:00)
[2018-11-15] MEDS: CLOPIDOGREL BISULFATE 75 MG TAB PO SCH (10:33)
[2018-11-15] MEDS: DULoxetine HCL 30 MG CAP PO SCH (10:35)
[2018-11-15] MEDS: LISINOPRIL 20 MG TAB PO SCH ×2 (10:35→22:29)
[2018-11-15] MEDS: PANTOPRAZOLE 40 MG TAB PO SCH (10:35)
[2018-11-15] MEDS: ASPirin 81 mg TAB PO SCH (10:36)
[2018-11-15] MEDS: PREGABALIN CAPSULE 75 MG CAP PO SCH ×2 (10:36→22:29)
[2018-11-15] MEDS: METOPROLOL TARTRATE 50 MG TAB PO SCH ×2 (10:38→22:28)
[2018-11-15] MEDS: ALPRAZolam 0.5 MG TAB PO SCH ×2 (10:38→22:29)
--- NOTE | 2018-11-15 11:02 | NUR ---
CALLED SOC TELEMED TO REQUEST TELE PSYCH CONSULT. TECH REPORTS THEY WILL CALL BACK ONCE PHYSICIAN IS AVAILABLE.
--- NOTE | 2018-11-15 11:30 | NUR ---
UNABLE TO DO ACCUCHECK, PT OUTSIDE SMOKING.
--- NOTE | 2018-11-15 12:02 | NUR ---
SOC TELEMED CALLED, PT OUTSIDE SMOKING. UNABLE TO DO CONSULT NOW.
[2018-11-15 12:39] VITALS: BP 144/72
--- NOTE | 2018-11-15 13:00 | NUR ---
PT REPORTS SHE NEVER GOT A LUNCH TRAY. CALLED FOOD AND NUTRITION, THEY REPORT THEY WILL SEND UP TRAY. CRACKERS, JELLO AND JUICE BROUGHT. Addendum: 11/15/18 at 1547 by ANNE CORLEY RN CHANGED NPO FOR AFTER MIDNIGHT TONIGHT.
--- NOTE | 2018-11-15 13:30 | NUR ---
PT TELE PSYCH CONSULT DONE, WILL CONTINUE TO MONITOR.
--- NOTE | 2018-11-15 15:47 | NUR ---
PT REPORTS SHE IS, "GOING OUTSIDE TO BUM A CIGARETTE." PT ASKED FOR CIGARETTE FROM STAFF, EDUCATED PT SMOKING IS BAD FOR HER HEALTH ALL WORSENS HER ALREADY COMPROMISED CIRCULATION. NO CIGARETTE GIVEN. WILL CONTINUE TO MONITOR.
[2018-11-15] MEDS: traMADol HCL 50 MG TAB PO PRN (16:29)
[2018-11-15 16:44] VITALS: BP 160/82
--- NOTE | 2018-11-15 17:12 | NUR ---
SPUD SORTER REPORTS PT BP 164/87 AND HR 89. SPUD SORTER REASSESSED BP, BP 142/85, HR 76. PT RECEIVED AND ATE LATE LUNCH TRAY. WILL CONTINUE TO MONITOR.
--- NOTE | 2018-11-15 19:15 | NUR ---
OPEN SHIFT NOTE PATIENT IS ALERT AND ORIENTED X4, ON 2L NASAL CANNULA. RIGHT FOREARM 22 GAUGE IS INTACT AND PATENT. POC DISCUSSED AND QUESTIONS ANSWERED, BED IS LOCKED IN LOWEST POSITION WITH SIDE RAILS UP X2 FOR SAFETY. CALL LIGHT IS WITHIN REACH AND PATIENT ENCOURAGED TO CALL IF NEEDS ANYTHING. WILL CONTINUE TO ROUND Q1HR AND PRN.
[2018-11-15] MEDS: ATORVASTATIN 20 MG TAB PO SCH (22:28)
[2018-11-15 23:11] VITALS: BP 162/90
[2018-11-16] MEDS: SODIUM CHLORIDE 0.9% 1,000 ML IV SCH ×3 (02:12→10:59)
[2018-11-16 04:53] VITALS: BP 127/97
[2018-11-16 06:23] LABS: Basophils # (auto) 0.1 uL; Eosinophils # (auto) 0.7 uL; Eosinophils % (auto) 9.1 % (0.0-7.0); Hematocrit 47.7 % (36.0-46.0); Hemoglobin 16.2 g/dL (12.2-16.2); Lymphocytes # (auto) 2.7 uL; Lymphocytes % (auto) 35.1 % (10.0-50.0); Mean Corpuscular Hemoglobin 32.4 pg (28.0-32.0); Mean Corpuscular Hgb Conc. 33.9 g/dL (32.0-36.0); Mean Corpuscular Volume 95.5 fL (80.0-100.0); Monocytes # (auto) 0.6 uL; Monocytes % (auto) 8.4 % (0.0-12.0); Neutrophils # (auto) 3.6 uL; Neutrophils % (auto) 46.4 % (37.0-80.0); Platelet Count (auto) 180 10^3/uL (140-450); Red Cell Distribution Width 13.4 % (11.8-14.3); White Blood Cell 7.7 10^3/uL (4.4-10.8)
[2018-11-16 06:36] LABS: INR 0.93 (0.9-1.15); Partial Thromboplastin Time 30.9 sec (23.78-33.04)
[2018-11-16 06:43] LABS: Albumin 3.7 g/dL (3.4-5.0); Calcium 9.1 mg/dL (8.5-10.1); Potassium 4.2 mmol/L (3.5-5.1)
[2018-11-16 06:47] LABS: BUN/Creatinine Ratio 14.5; Bilirubin, Total 0.3 mg/dL (0.2-1.0); Total Protein 6.9 g/dL (6.4-8.2)
[2018-11-16] MEDS: ACCU-CHEK COMFORT CURVE STRIP VI SCH ×4 (06:50→22:17)
[2018-11-16] MEDS: InsuLIN REG 1unit/0.01ml Soln (100units/ml) SC SCH ×4 (07:02→22:26)
[2018-11-16] MEDS ORDERED: IODIXANOL 320MG/ML 100ML BTL IV ONE ×2 (07:37→08:26)
[2018-11-16] MEDS ORDERED: HEPARIN IN NS 1000Units/500mL 1,500 ML ONE (07:37)
[2018-11-16] MEDS ORDERED: LIDOCAINE 2%HCL (LOCAL ANESTH.) INJ 20ML MDV ONE (07:37)
--- NOTE | 2018-11-16 07:43 | NUR ---
PT RESTING IN BED, PT REPORTS 8/10 PAIN IN BACK AND NECK AND REFUSES TRAMADOL, PT REPORTS IT DOESN'T WORK. WEB PRESS ROLL TENDER CALLED, THEY ARE READY FOR PATIENT.
[2018-11-16] MEDS ORDERED: ANGIOMAX 250 MG VIAL IV ONE (08:17)
[2018-11-16] MEDS ORDERED: fentaNYL CITRATE 100 MCG/2 ML VL ONE (08:17)
[2018-11-16] MEDS ORDERED: SODIUM CHL 0.9% 50 ML ONE (08:18)
[2018-11-16] MEDS ORDERED: MIDAZOLAM HCL 1MG/1ML-2 ML VIAL ONE (08:18)
[2018-11-16 08:33] VITALS: BP 148/84
[2018-11-16] MEDS: ASPirin 81 mg TAB PO SCH (09:46)
[2018-11-16] MEDS: CLOPIDOGREL BISULFATE 75 MG TAB PO SCH (09:46)
[2018-11-16] MEDS: METOPROLOL TARTRATE 50 MG TAB PO SCH ×2 (10:00→22:16)
[2018-11-16] MEDS: TRICOR OR SCH (10:00)
--- NOTE | 2018-11-16 10:00 | NUR ---
PT RETURNED TO FLOOR VIA BED, PT REPORTS 10/10 PAIN IN BACK. VITALS:BP 137/85, HR 72, 02 94, 97.5, RR 14. PT LEFT GROIN DRESSING CLEAN DRY AND INTACT, NO DRAINAGE NOTED. SITE IS SOFT AND PALPABLE, AND FREE OF ERYTHEMA AND ECCHYMOSIS. PT REFUSING ULTRAM, WILL CONTINUE TO MONITOR.
--- NOTE | 2018-11-16 10:23 | NUR ---
LEFT MESSAGE FOR DR REID LETTING HIM KNOW PT HR GOES FROM 40'S TO 70'S YESTERDAY AND TODAY.
--- NOTE | 2018-11-16 10:25 | NUR ---
DR REID RESPONDED AND IS AWARE, HE REPORTS MAY DO PPI ON THURSDAY, WILL CONTINUE TO MONITOR.
[2018-11-16] MEDS: DULoxetine HCL 30 MG CAP PO SCH (10:48)
[2018-11-16] MEDS: PANTOPRAZOLE 40 MG TAB PO SCH (10:50)
[2018-11-16] MEDS: LISINOPRIL 20 MG TAB PO SCH ×2 (10:50→22:16)
[2018-11-16] MEDS: ALPRAZolam 0.5 MG TAB PO SCH ×2 (10:51→22:16)
[2018-11-16] MEDS: PREGABALIN CAPSULE 75 MG CAP PO SCH ×2 (10:51→22:16)
--- NOTE | 2018-11-16 11:00 | NUR ---
PT HAS BEEN NPO ALL MORNING. BS 134, HOLDING INSULIN.
--- NOTE | 2018-11-16 12:02 | NUR ---
MUSICAL STRING MAKER REPORTS PT BP 89/48. REASSESSED BP, BP 125/76, HR 54.
[2018-11-16 12:40] VITALS: BP 96/52
--- NOTE | 2018-11-16 12:51 | NUR ---
Nutrition Assessment Notes please see attached link for complete assessment Est. Needs based on ABW (73 kg): [address] kcal (20-23 kcal/kgBW), 73 gms to 80 gms pro (1.0-1.1 gms/kgBW). Will continue to monitor pertinent labs and reassess nutrient need prn Addendum: 11/16/18 at [address] Amended: Links added.
--- NOTE | 2018-11-16 13:07 | NUR ---
PT REPORTS SHE IS BLEEDING. MODERATE BRIGHT RED BLOOD NOTED ON PT CHUCKS, PT REPORTS SHE HAS TO PEE. ASSESSED SURGICAL INCISION SITE, SITE CLEAN AND BANDAGE CLEAN DRY AND INTACT. NO BLOOD NOTED AROUND INCISION SITE OR DOWN THE SIDES. PT WENT TO RESTROOM. PT REPORTS SHE HASN'T HAD A PERIOD IN YEARS. ASSESSED SURROUNDING SKIN AND BACKSIDE, NO BLOOD SEEN ANYWHERE ON PT SKIN. PT WENT TO RESTROOM AND RETURNED. CHUCKS CHANGED. INFORMED CHARGE PT BLEEDING FROM UNKNOWN PLACE. NO BLOOD NOTED AROUND VAGINA. CHARGE REPORTS IT COULD BE A REACTION TO THE SURGERY AND ANESTHESIA CAUSING PT TO MENSTRUATE. WILL CONTINUE TO ASSESS FOR SITE OF BLEEDING. Addendum: 11/16/18 at 1315 by ANNE CORLEY RN PT REPORTED SHE SAW BLOOD IN THE TOILET WHEN SHE VOIDED.
[2018-11-16 13:24] LABS: Basophils # (auto) 0.1 uL; Basophils % (auto) 1.1 % (0.0-2.0); Eosinophils # (auto) 0.6 uL; Eosinophils % (auto) 7.7 % (0.0-7.0); Hematocrit 45.3 % (36.0-46.0); Hemoglobin 15.5 g/dL (12.2-16.2); Lymphocytes # (auto) 2.5 uL; Lymphocytes % (auto) 33.7 % (10.0-50.0); Mean Corpuscular Hemoglobin 32.6 pg (28.0-32.0); Mean Corpuscular Hgb Conc. 34.3 g/dL (32.0-36.0); Mean Corpuscular Volume 95.2 fL (80.0-100.0); Monocytes # (auto) 0.7 uL; Monocytes % (auto) 9.3 % (0.0-12.0); Neutrophils # (auto) 3.5 uL; Neutrophils % (auto) 48.2 % (37.0-80.0); Platelet Count (auto) 175 10^3/uL (140-450); Red Blood Cells 4.76 10^6/uL (4.0-5.20); Red Cell Distribution Width 13.2 % (11.8-14.3); White Blood Cell 7.3 10^3/uL (4.4-10.8)
--- NOTE | 2018-11-16 14:40 | NUR ---
RT NOTE: NO TX GIVEN. PT HAS INSPIRATORY WHEEZING T/O, BUT STATES SHE DOES NOT WANT A TX AT THIS TIME. ON 2L NC SPO2 95 HR 70 RR 16. PT AWARE THAT SHE CAN CALL FOR TX IF SHE DECIDES SHE NEEDS ONE LATER. WILL CONTINUE TO MONITOR.
[2018-11-16 16:51] VITALS: BP 150/88
--- NOTE | 2018-11-16 19:20 | NUR ---
OPEN SHIFT NOTE PATIENT ALERT AND ORIENTED X4. ON 3L NC, IV INTACT AND PATENT. PATIENT IS S/P PERIPHERAL ANGIOGRAM, DRESSING IS DRY AND INTACT, PATIENT DOES STATE SOME DISCOMFORT AT DRESSING SITE. BUT FEELS BETTER AFTER CHANGING POSITIONS. ASKED PATIENT ABOUT ANY MORE BLEEDING, PATIENT STATES THERE WAS NO MORE BLEEDING. POC DISCUSSED AND QUESTIONS ANSWERED. BED IS LOCKED IN LOWEST POSITION WITH SIDE RAILS UP X2 FOR SAFETY, CALL LIGHT IS WITHIN AND ENCOURAGED TO CALL IF NEEDS ANYTHING. WILL CONTINUE TO ROUND Q1HR AND PRN.
--- NOTE | 2018-11-16 19:59 | NUR ---
PT REPORTS SHE HAS NOT BLED ANYMORE, BUT WILL NOTIFY NIGHT NURSE IF SHE DOES.
[2018-11-16 22:00] VITALS: BP 132/79
[2018-11-16] MEDS: ATORVASTATIN 20 MG TAB PO SCH (22:15)
[2018-11-17] MEDS: SODIUM CHLORIDE 0.9% 1,000 ML IV SCH ×3 (01:15→14:35)
--- NOTE | 2018-11-17 01:55 | NUR ---
Respiratory note: PT TAKEN OFF CPAP BY RT Kathrine REED AT AROUND 0155 PER PT REQUEST. PT WAS PLACED BACK ON 3 NASAL CANNULA SP02 93%.
--- NOTE | 2018-11-17 02:30 | NUR ---
PATIENT WENT DOWNSTAIRS AMA TO SMOKE A CIGARETTE.
--- NOTE | 2018-11-17 04:28 | NUR ---
SPOKE WITH PATIENT, SHE IS STATING THAT SHE REALLY WANTS TO TALK TO DOCTOR BECAUSE SHE IS NOT SURE WHAT IS GOING ON, AND WOULD LIKE TO BE INFORMED TATE ABOUT PLAN.
[2018-11-17 06:03] VITALS: BP 129/76
[2018-11-17] MEDS: ACCU-CHEK COMFORT CURVE STRIP VI SCH ×2 (06:24→11:30)
[2018-11-17] MEDS: InsuLIN REG 1unit/0.01ml Soln (100units/ml) SC SCH ×3 (06:31→17:00)
--- NOTE | 2018-11-17 07:30 | NUR ---
Opening Shift Note Assumed care of patient, awake and alert. No S/S of distress/SOB or pain reported at this time. Currently on 2l via NC. IV patent to right FA, site patent and benign. Instructed on POC and to call for assist PRN, call light within reach, will continue to monitor for changes Q1hr and PRN.
[2018-11-17 08:00] VITALS: BP 114/83
--- NOTE | 2018-11-17 08:13 | NUR ---
Respiratory note: ASSESSED PT FOR PRN TX PT WAS AWAKE AND ALERT EATING BREAKFAST, NO RESP DISTRESS NOTED. HR 73, RR 16, SPO2 91% ON ROOM AIR. BS ARE CLEAR AND DIMINISHED. PT KNOWS TO HAVE RT PAGED IF TX IS NEEDED.
--- NOTE | 2018-11-17 08:45 | NUR ---
AMA/SMOKING IGNACIO BAUTISTA states they want to leave the floor Against Medical Advice (AMA) to go outside and smoke. Patient encouraged to stay on floor and not smoke. Patient advised of the risks and benefits of leaving AMA. Patient verbalized understanding and signed AMA form for smoking in chart. NO distress noted at this time
[2018-11-17 09:00] VITALS: BP 114/83
--- NOTE | 2018-11-17 09:13 | NUR ---
assessment Patient is a 57 year old female who is alert and oriented. Patients cognitive abilities are intact. Prior to admission patient lived home with her Riaz and functioned with his assistance. Per patient she will return home to her prior living arrangements post discharge and Riaz will transport her home. Patient informed me she has a fww that she does not need to use, 02, and cpap. Patients PCP is Dr Evangelista. Patient informed me she needs assistance with cleaning. Per patients Riaz he will do the cleaning. Patient has no post discharge needs as of now. I informed patient she has a right to speak to a social science professor regarding all care. I informed patient she has a right to participate in any and all discharge planning. Patient is aware of visiting hours on the hospital floor. I informed patient she has a right to privacy. Patient does not have a POA and advanced directive. I have offered patient information on POA and advanced directives. I informed the patient the advantages and benefits of having an Advanced Directive. Patient verbalized understanding and agreed to discharge plan. Addendum: 11/18/18 at 0917 by Mela WANG Amended: Links added.
[2018-11-17] MEDS: TRICOR OR SCH (10:00)
[2018-11-17] MEDS: PREGABALIN CAPSULE 75 MG CAP PO SCH (10:09)
[2018-11-17] MEDS: DULoxetine HCL 30 MG CAP PO SCH (10:09)
[2018-11-17] MEDS: CLOPIDOGREL BISULFATE 75 MG TAB PO SCH (10:09)
[2018-11-17] MEDS: PANTOPRAZOLE 40 MG TAB PO SCH (10:09)
[2018-11-17] MEDS: ASPirin 81 mg TAB PO SCH (10:09)
[2018-11-17] MEDS: LISINOPRIL 20 MG TAB PO SCH (10:13)
[2018-11-17] MEDS: METOPROLOL TARTRATE 50 MG TAB PO SCH (10:16)
[2018-11-17 12:48] VITALS: BP 101/65
[2018-11-17] MEDS ORDERED: ALPRAZolam 0.5 MG TAB PO SCH (14:00)
--- NOTE | 2018-11-17 14:12 | NUR ---
MD DR REID AT BEDSIDE DISCUSSING POC WITH PT, CONT CARE
--- NOTE | 2018-11-17 16:19 | NUR ---
PRESCRIPTIONS CALLED IN TO [facility] [place] SPOKE WITH PHARMACIST NAKUL, PRESCRIPTION WAS FOR XANAX 1MG PO TID #90, PT AND INFORMED, CONT CARE
[2018-11-17 16:34] VITALS: BP 132/76
[2018-11-17 16:46] VITALS: BP 108/62
--- NOTE | 2018-11-17 17:21 | NUR ---
DISCHARGE Discharge instructions given as ordered. Encourage to follow up with PMD as instructed. Appointment made to follow up with Dr Ambrocio on 12/01/[address] Martinez on 12/01/18, contact and addresses provided. Prescriptions for Xanax 1mg PO #90 [facility] to [facility] [place], pt was informed. All questions and concerns addressed. Patient verbalized understanding. Medication reconciliation form completed and copy given to patient. IV removed with catheter intact, pressure dressing applied. Telemetry unit returned to ICU. Patient insisted in ambulating with to vehicle, patient left with all personal belongings. No distress noted at time of departure.
== END 2018-11-17 15:21 | disposition home or self-care (01) | DRG 253 ==
LOC: ER 12:12 → TELE 14:34 → TELE-WESTW 16:18
PROVIDERS: ADMIT Internal Medicine; ATTEND Internal Medicine Cardiovascular Disease
PROC: 5A09357 Assistance with Respiratory Ventilation, Less than 24 Consecutive Hours, Continuous Positive Airway Pressure (ICD-10-PCS; 2018-11-14)
PROC: 047M3ZZ Dilation of Right Popliteal Artery, Percutaneous Approach (ICD-10-PCS; principal; 2018-11-16)
PROC: 047K3ZZ Dilation of Right Femoral Artery, Percutaneous Approach (ICD-10-PCS; 2018-11-16)
PROC: B41G1ZZ Fluoroscopy of Left Lower Extremity Arteries using Low Osmolar Contrast (ICD-10-PCS; 2018-11-16)
PROC: B41J1ZZ Fluoroscopy of Other Lower Arteries using Low Osmolar Contrast (ICD-10-PCS; 2018-11-16)
PROC: B41F1ZZ Fluoroscopy of Right Lower Extremity Arteries using Low Osmolar Contrast (ICD-10-PCS; 2018-11-16)
PROC: 5A09357 Assistance with Respiratory Ventilation, Less than 24 Consecutive Hours, Continuous Positive Airway Pressure (ICD-10-PCS; 2018-11-16)
DX: I70.203 Unspecified atherosclerosis of native arteries of extremities, bilateral legs (principal); J44.1 Chronic obstructive pulmonary disease with (acute) exacerbation; I11.0 Hypertensive heart disease with heart failure; I50.9 Heart failure, unspecified; M06.9 Rheumatoid arthritis, unspecified; E11.51 Type 2 diabetes mellitus with diabetic peripheral angiopathy without gangrene; M79.7 Fibromyalgia; E78.5 Hyperlipidemia, unspecified; I25.10 Atherosclerotic heart disease of native coronary artery without angina pectoris; D75.1 Secondary polycythemia; E66.9 Obesity, unspecified; F17.210 Nicotine dependence, cigarettes, uncomplicated; I25.5 Ischemic cardiomyopathy; F41.9 Anxiety disorder, unspecified; G47.33 Obstructive sleep apnea (adult) (pediatric); G56.02 Carpal tunnel syndrome, left upper limb; G89.29 Other chronic pain; M54.9 Dorsalgia, unspecified; E78.00 Pure hypercholesterolemia, unspecified; E11.42 Type 2 diabetes mellitus with diabetic polyneuropathy; I25.2 Old myocardial infarction; Z82.5 Family history of asthma and other chronic lower respiratory diseases; Z82.49 Family history of ischemic heart disease and other diseases of the circulatory system; Z79.899 Other long term (current) drug therapy; Z83.3 Family history of diabetes mellitus; Z79.82 Long term (current) use of aspirin; Z79.02 Long term (current) use of antithrombotics/antiplatelets; Z86.73 Personal history of transient ischemic attack (TIA), and cerebral infarction without residual deficits; Z95.1 Presence of aortocoronary bypass graft; Z95.5 Presence of coronary angioplasty implant and graft; Z88.8 Allergy status to other drugs, medicaments and biological substances
CPT/HCPCS: 36415; 70450; 70551; 71046; 80053; 80307; 81001; 82550; 82962; 83036; 83735; 83880; 84484; 85025; 85379; 85610; 85652; 85730; 86850; 86900; 86901; 93005; 93306; 93886; 93926; 94660; 94761; 96372; G0378; J1815; J2250; Q9967

== ENCOUNTER 2018-11-18 12:18 | Inpatient (IN) | payer BC | END 2018-11-20 14:16 | disposition home or self-care (01) | LOC: TELE-EAST 11-19 18:30 → ER 12:18 → ICU WEST 16:04 ==

== ENCOUNTER 2019-05-06 12:28 | Inpatient (IN) | payer BC ==
[~2019-05-06] VITALS: Ht 162.6 cm; Wt 88.8 kg
[~2019-05-06 12:28] MED LIST changes: +FURO40TA4 PO
[2019-05-06] MEDS ORDERED: IPRATROPIUM BROM 0.5 MG/2.5ML INH SOL NEB ONE ×2 (13:15→17:45)
[2019-05-06] MEDS ORDERED: ALBUTEROL SULF 2.5 MG/0.5ML(0.5%) NEB SOLN NEB ONE ×2 (13:15→17:45)
[2019-05-06 13:40] LABS: Basophils # (auto) 0.1 uL; Eosinophils # (auto) 0.8 uL; Eosinophils % (auto) 9.1 % (0.0-7.0); Hematocrit 45.6 % (36.0-46.0); Hemoglobin 15.4 g/dL (12.2-16.2); Lymphocytes # (auto) 2.3 uL; Lymphocytes % (auto) 24.7 % (10.0-50.0); Mean Corpuscular Hemoglobin 32.9 pg (28.0-32.0); Mean Corpuscular Hgb Conc. 33.9 g/dL (32.0-36.0); Mean Corpuscular Volume 97.2 fL (80.0-100.0); Monocytes # (auto) 0.7 uL; Monocytes % (auto) 7.5 % (0.0-12.0); Neutrophils # (auto) 5.3 uL; Neutrophils % (auto) 57.7 % (37.0-80.0); Platelet Count (auto) 209 10^3/uL (140-450); Red Blood Cells 4.69 10^6/uL (4.0-5.20); Red Cell Distribution Width 15.5 % (11.8-14.3); White Blood Cell 9.2 10^3/uL (4.4-10.8)
[2019-05-06 13:59] LABS: Lactic Acid w/Reflex 2.1 mmol/L (0.4-2.0)
[2019-05-06 14:06] LABS: INR 0.99 (0.9-1.15); Partial Thromboplastin Time 32.3 sec (23.64-32.05)
[2019-05-06 14:10] LABS: Alanine Aminotransferase 22 U/L (13-56); Alkaline Phosphatase 78 U/L (45-117); Anion Gap 8 (5-15); Aspartate Aminotransferase 26 U/L (15-37); Bilirubin, Total 0.4 mg/dL (0.2-1.0); Blood Urea Nitrogen 8 mg/dL (7-18); Calcium 8.2 mg/dL (8.5-10.1); Carbon Dioxide 27 mmol/L (21-32); Chloride 106 mmol/L (98-107); GFR African American 62 mL/min; GFR Non-African American 51 mL/min; Glucose 223 mg/dL (74-106); Potassium 4.2 mmol/L (3.5-5.1); Sodium 141 mmol/L (136-145); Total Protein 7.1 g/dL (6.4-8.2)
[2019-05-06 14:11] LABS: Albumin 3.4 g/dL (3.4-5.0); Magnesium 1.6 mg/dL (1.6-2.6)
[2019-05-06] MEDS ORDERED: cefTRIAXone 1GM/50ML D5W 50 ML IV ONE (15:30)
[2019-05-06] MEDS ORDERED: NITROGLYCERIN 0.4 MG SL TAB SL PRN (19:00)
[2019-05-06] MEDS ORDERED: MORPHINE SULF INJ 2 MG/ML SYRINGE 1ML IV PRN (19:00)
[2019-05-06] MEDS ORDERED: DEXTROSE (50%) 50ML SYRG IV PRN (19:00)
[2019-05-06 19:15] VITALS: BP 114/69
--- NOTE | 2019-05-06 20:10 | NUR ---
Telemetry admit from IGNACIO FISHMAN admitted to Telemetry unit. SBAR not received. Patient oriented to SHIVAM WOODS RN primary RN, unit, room, bed, and unit policies regarding patient care and visiting hours. Patient now on continuous telemetry monitoring, tele box 76 and telemetry reading on arrival to unit is NSR with first degree block. Patient placed on 2L humidified bedside oxygen, weighed by bedscale and encouraged to call if they need something. All questions and concerns addressed, patient verbalized understanding.
[2019-05-06 21:20] VITALS: BP 113/66
[2019-05-06] MEDS: METOPROLOL TARTRATE 50 MG TAB PO SCH (22:00)
[2019-05-06] MEDS: ALPRAZolam 0.5 MG TAB PO SCH (22:16)
[2019-05-06] MEDS: ACCU-CHEK COMFORT CURVE STRIP VI SCH (22:16)
[2019-05-06] MEDS: PREGABALIN CAPSULE 75 MG CAP PO SCH (22:16)
[2019-05-06] MEDS: InsuLIN REG 1unit/0.01ml Soln (100units/ml) SC SCH (22:16)
[2019-05-06] MEDS: ISOSORBIDE MONONITRATE ER 60 MG TAB PO SCH (22:17)
[2019-05-06] MEDS: LEVALBUTEROL HCL 1.25 MG/3 ML NEB NEB SCH (22:25)
[2019-05-06 22:58] VITALS: BP 113/64
[2019-05-07 05:42] VITALS: BP 100/68
[2019-05-07] MEDS: LEVALBUTEROL HCL 1.25 MG/3 ML NEB NEB SCH ×3 (06:35→22:15)
[2019-05-07] MEDS: ACCU-CHEK COMFORT CURVE STRIP VI SCH ×4 (06:48→22:13)
[2019-05-07] MEDS: InsuLIN REG 1unit/0.01ml Soln (100units/ml) SC SCH ×4 (06:48→22:13)
[2019-05-07] MEDS ORDERED: ALPR2TAB8 PO (06:58)
[2019-05-07] MEDS ORDERED: ATOR20TA50 PO (06:59)
[2019-05-07] MEDS ORDERED: LEVEMIR SC (07:01)
[2019-05-07] MEDS ORDERED: FOLI1TAB6 PO (07:03)
[2019-05-07] MEDS ORDERED: METF-370 PO (07:03)
--- NOTE | 2019-05-07 07:30 | NUR ---
Opening Shift Note Assumed care of patient, awake and alert. No S/S of distress/SOB. Pt denies having any pain at this time. Bed in lowest and locked position with side rails up x2 and call light within reach. Instructed on POC and to call for assist PRN, will continue to monitor for changes Q1hr and PRN.
[2019-05-07 09:00] VITALS: BP 96/68
[2019-05-07] MEDS: LISINOPRIL 10 MG TAB PO SCH ×2 (10:00→22:00)
[2019-05-07] MEDS: ISOSORBIDE MONONITRATE ER 60 MG TAB PO SCH ×2 (10:00→22:10)
[2019-05-07] MEDS: METOPROLOL TARTRATE 50 MG TAB PO SCH ×2 (10:00→22:00)
[2019-05-07] MEDS: POTASSIUM CHL 20 Meq TABLET PO SCH (10:00)
[2019-05-07] MEDS: AZITHROMYCIN 500MG/ 250ML 250 ML IV SCH (11:03)
[2019-05-07] MEDS: FOLIC ACID 1 MG TAB PO SCH (11:04)
[2019-05-07] MEDS: ASPirin 81 mg TAB PO SCH (11:04)
[2019-05-07] MEDS: DULoxetine HCL 30 MG CAP PO SCH (11:05)
[2019-05-07] MEDS: ATORVASTATIN 20 MG TAB PO SCH (11:06)
[2019-05-07] MEDS: metFORMIN HYDROCHLORIDE 500 MG TAB PO SCH (11:06)
[2019-05-07] MEDS: ALPRAZolam 0.5 MG TAB PO SCH ×2 (11:07→22:11)
[2019-05-07] MEDS: MONTELUKAST SODIUM 10 MG TAB PO SCH (11:07)
[2019-05-07] MEDS: PREGABALIN CAPSULE 75 MG CAP PO SCH ×2 (11:07→22:10)
[2019-05-07] MEDS: CLOPIDOGREL BISULFATE 75 MG TAB PO SCH (11:07)
[2019-05-07] MEDS: FUROSEMIDE 40 MG TAB PO SCH (12:57)
[2019-05-07 13:00] VITALS: BP 117/75
--- NOTE | 2019-05-07 13:07 | NUR ---
SPOKE TO DR. REID. NEW ORDERS RECEIVED, READ BACK AND VERIFIED.
[2019-05-07] MEDS ORDERED: diphenhdrAMINE HCL 50 MG/1 ML VL IV ONE (13:15)
[2019-05-07] MEDS ORDERED: HYDROcodone-ACET 10/325MG TAB PO PRN (13:15)
[2019-05-07] MEDS ORDERED: methylPREDNISolone SOD SUCC 125 MG/2 ML VL IV ONE ×2 (13:15→13:30)
--- NOTE | 2019-05-07 15:00 | NUR ---
IV insertion IV access obtained, via clean sterile technique by inserting 22 gauge catheter at LEFT WRIST after 2 attempt(s). IV secured properly. No trauma to site. Patient tolerated well.
--- NOTE | 2019-05-07 15:00 | NUR ---
IV removal LEFT HAND IV DC'd with clean sterile technique, catheter fully intact. Pressure dressing applied to site. Patient tolerated well.
--- NOTE | 2019-05-07 16:30 | NUR ---
PATIENT GIVEN SOLU-MEDROL AND BENADRYL FOR ONE TIME DOSE. PT DENIES ANY S/S OF MEDICATION REACTION. NO S/S OF SOB, DISTRESS OR RASH. WILL CONTINUE TO MONITOR PATIENT FOR S/S OF MEDICATION REACTION.
[2019-05-07 17:00] VITALS: BP 127/80
--- NOTE | 2019-05-07 19:10 | NUR ---
Opening Shift Note Assumed care of patient, awake and alert. No S/S of distress/SOB or pain. Safety measures in place bed in lowest position, side rails x2 up, and call light within reach. Instructed on POC and to call for assist PRN, will continue to monitor for changes Q1hr and PRN.
--- NOTE | 2019-05-07 19:30 | NUR ---
ENDORSED CARE TO NIGHT RNSHIVAM.
[2019-05-07 21:48] VITALS: BP 114/65
[2019-05-08 05:35] VITALS: BP 95/52
[2019-05-08] MEDS: ACCU-CHEK COMFORT CURVE STRIP VI SCH ×4 (06:34→22:00)
[2019-05-08] MEDS: InsuLIN REG 1unit/0.01ml Soln (100units/ml) SC SCH ×4 (06:35→22:55)
[2019-05-08] MEDS: LEVALBUTEROL HCL 1.25 MG/3 ML NEB NEB SCH ×3 (07:34→23:06)
--- NOTE | 2019-05-08 08:58 | NUR ---
SPOKE TO DR. REID. NOTIFIED THAT THE PATIENT TOLERATED THE SOLUMEDROL WITH THE BENADRYL WELL FROM YESTERDAY. NEW ORDERS RECEIVED, READ BACK AND VERIFIED.
[2019-05-08 09:00] VITALS: BP 104/56
--- NOTE | 2019-05-08 09:30 | NUR ---
SPOKE TO DR. REID. NEW ORDERS RECEIVED, READ BACK AND VERIFIED.
[2019-05-08] MEDS: METOPROLOL TARTRATE 50 MG TAB PO SCH ×2 (10:00→22:00)
[2019-05-08] MEDS: LISINOPRIL 10 MG TAB PO SCH ×2 (10:00→22:00)
[2019-05-08] MEDS: ASPirin 81 mg TAB PO SCH (10:37)
[2019-05-08] MEDS: AZITHROMYCIN 500MG/ 250ML 250 ML IV SCH (10:37)
[2019-05-08] MEDS: DULoxetine HCL 30 MG CAP PO SCH (10:38)
[2019-05-08] MEDS: FOLIC ACID 1 MG TAB PO SCH (10:38)
[2019-05-08] MEDS: FUROSEMIDE 40 MG TAB PO SCH (10:39)
[2019-05-08] MEDS: ATORVASTATIN 20 MG TAB PO SCH (10:39)
[2019-05-08] MEDS: metFORMIN HYDROCHLORIDE 500 MG TAB PO SCH (10:39)
[2019-05-08] MEDS: POTASSIUM CHL 20 Meq TABLET PO SCH (10:39)
[2019-05-08] MEDS: CLOPIDOGREL BISULFATE 75 MG TAB PO SCH (10:40)
[2019-05-08] MEDS: ALPRAZolam 0.5 MG TAB PO SCH ×2 (10:40→22:30)
[2019-05-08] MEDS: PREGABALIN CAPSULE 75 MG CAP PO SCH ×2 (10:40→22:31)
[2019-05-08] MEDS: MONTELUKAST SODIUM 10 MG TAB PO SCH (10:40)
--- NOTE | 2019-05-08 10:50 | NUR ---
IV removal Left wrist IV DC'd with clean sterile technique, catheter fully intact. Pressure dressing applied to site. Patient tolerated well.
--- NOTE | 2019-05-08 11:00 | NUR ---
IV insertion IV access obtained, via clean sterile technique by inserting 22 gauge catheter at right AC after 1 attempt(s). IV secured properly. No trauma to site. Patient tolerated well.
[2019-05-08] MEDS: ISOSORBIDE MONONITRATE ER 60 MG TAB PO SCH ×2 (12:18→22:30)
--- NOTE | 2019-05-08 12:30 | NUR ---
AMA TO SMOKE. PATIENT EDUCATED ON THE RISKS OF SMOKING AND THE BENEFITS OF QUITTING SMOKING. THE PATIENT VERBALIZED UNDERSTANDING AND CONTINUES TO WANT TO SMOKE. THE PATIENT SIGNED THE AMA TO SMOKE.
[2019-05-08] MEDS: diphenhdrAMINE HCL 50 MG/1 ML VL IV PRN ×2 (14:22→23:06)
[2019-05-08] MEDS: methylPREDNISolone SOD SUCC 40 MG/ML VL IV SCH ×2 (14:22→22:29)
[2019-05-08 16:44] VITALS: BP 105/61
--- NOTE | 2019-05-08 19:30 | NUR ---
ENDORSED CARE TO NIGHT RNSHIVAM.
[2019-05-08 22:00] VITALS: BP 118/72
[2019-05-09 05:43] VITALS: BP 95/62
[2019-05-09] MEDS: methylPREDNISolone SOD SUCC 40 MG/ML VL IV SCH ×3 (06:31→21:19)
[2019-05-09] MEDS: ACCU-CHEK COMFORT CURVE STRIP VI SCH ×4 (06:33→21:40)
[2019-05-09] MEDS: LEVALBUTEROL HCL 1.25 MG/3 ML NEB NEB SCH ×3 (06:53→22:13)
[2019-05-09] MEDS: InsuLIN REG 1unit/0.01ml Soln (100units/ml) SC SCH ×4 (06:54→21:46)
[2019-05-09 09:00] VITALS: BP 112/68
[2019-05-09] MEDS: LISINOPRIL 10 MG TAB PO SCH ×2 (10:00→21:20)
[2019-05-09] MEDS: METOPROLOL TARTRATE 50 MG TAB PO SCH ×2 (10:00→21:22)
[2019-05-09] MEDS: AZITHROMYCIN 500MG/ 250ML 250 ML IV SCH (10:41)
[2019-05-09] MEDS: ASPirin 81 mg TAB PO SCH (10:46)
[2019-05-09] MEDS: FOLIC ACID 1 MG TAB PO SCH (10:46)
[2019-05-09] MEDS: metFORMIN HYDROCHLORIDE 500 MG TAB PO SCH (10:47)
[2019-05-09] MEDS: DULoxetine HCL 30 MG CAP PO SCH (10:47)
[2019-05-09] MEDS: ISOSORBIDE MONONITRATE ER 60 MG TAB PO SCH ×2 (10:47→21:21)
[2019-05-09] MEDS: ATORVASTATIN 20 MG TAB PO SCH (10:48)
[2019-05-09] MEDS: PREGABALIN CAPSULE 75 MG CAP PO SCH ×2 (10:48→21:23)
[2019-05-09] MEDS: FUROSEMIDE 40 MG TAB PO SCH (10:48)
[2019-05-09] MEDS: POTASSIUM CHL 20 Meq TABLET PO SCH (10:48)
[2019-05-09] MEDS: MONTELUKAST SODIUM 10 MG TAB PO SCH (10:49)
[2019-05-09] MEDS: CLOPIDOGREL BISULFATE 75 MG TAB PO SCH (10:49)
[2019-05-09] MEDS: ALPRAZolam 0.5 MG TAB PO SCH ×2 (10:49→21:23)
[2019-05-09 13:00] VITALS: BP 112/65
[2019-05-09] MEDS: diphenhdrAMINE HCL 50 MG/1 ML VL IV PRN ×2 (14:36→21:35)
--- NOTE | 2019-05-09 15:54 | NUR ---
NUTRITION ASSESSMENT NOTES Please refer to link notes of nutrition screen form filed under the intervention section of the plan of care for further details. Est. Needs: 1350 kcal to 1750 kcal (15-20 kcal/kgBW), 55 gms to 66 gms pro (1.0-1.2 gms/kgIBW: 55 kg). Will continue to monitor pertinent labs and reassess nutrient need prn Thank you. Addendum: 05/09/19 at [address] Amended: Links added.
[2019-05-09 17:00] VITALS: BP 93/42
--- NOTE | 2019-05-09 19:22 | NUR ---
ENDORSED CARE TO NIGHT RNGANESH.
--- NOTE | 2019-05-09 20:00 | NUR ---
Opening Shift Note Assumed care of patient, awake and alert. No S/S of distress/SOB or pain. Instructed on POC and to call for assist PRN, will continue to monitor for changes Q1hr and PRN.
[2019-05-09 21:38] VITALS: BP 119/54
[2019-05-10 01:07] VITALS: BP 119/54
[2019-05-10 05:18] VITALS: BP 116/57
[2019-05-10] MEDS: methylPREDNISolone SOD SUCC 40 MG/ML VL IV SCH ×2 (06:10→14:06)
[2019-05-10] MEDS: ACCU-CHEK COMFORT CURVE STRIP VI SCH ×2 (06:11→11:48)
[2019-05-10] MEDS: InsuLIN REG 1unit/0.01ml Soln (100units/ml) SC SCH ×2 (06:19→11:54)
[2019-05-10] MEDS: LEVALBUTEROL HCL 1.25 MG/3 ML NEB NEB SCH ×2 (07:12→14:38)
--- NOTE | 2019-05-10 07:15 | NUR ---
Opening Shift Note Assumed care of patient, awake and alert. No S/S of distress/SOB. Instructed on POC and to call for assist PRN, will continue to monitor for changes Q1hr and PRN.
--- NOTE | 2019-05-10 07:36 | NUR ---
Report given to Godwin Vo, patient is resting no distress.
[2019-05-10 09:00] VITALS: BP 124/65
[2019-05-10] MEDS: METOPROLOL TARTRATE 50 MG TAB PO SCH (10:00)
[2019-05-10] MEDS: AZITHROMYCIN 500MG/ 250ML 250 ML IV SCH (10:05)
[2019-05-10] MEDS: LISINOPRIL 10 MG TAB PO SCH (10:06)
[2019-05-10] MEDS: ALPRAZolam 0.5 MG TAB PO SCH (10:07)
[2019-05-10] MEDS: DULoxetine HCL 30 MG CAP PO SCH (10:07)
[2019-05-10] MEDS: ISOSORBIDE MONONITRATE ER 60 MG TAB PO SCH (10:08)
[2019-05-10] MEDS: CLOPIDOGREL BISULFATE 75 MG TAB PO SCH (10:08)
[2019-05-10] MEDS: POTASSIUM CHL 20 Meq TABLET PO SCH (10:08)
[2019-05-10] MEDS: MONTELUKAST SODIUM 10 MG TAB PO SCH (10:08)
[2019-05-10] MEDS: metFORMIN HYDROCHLORIDE 500 MG TAB PO SCH (10:09)
[2019-05-10] MEDS: ASPirin 81 mg TAB PO SCH (10:10)
[2019-05-10] MEDS: ATORVASTATIN 20 MG TAB PO SCH (10:10)
[2019-05-10] MEDS: FOLIC ACID 1 MG TAB PO SCH (10:10)
[2019-05-10] MEDS: FUROSEMIDE 40 MG TAB PO SCH (10:10)
[2019-05-10] MEDS: PREGABALIN CAPSULE 75 MG CAP PO SCH (10:12)
[2019-05-10 13:00] VITALS: BP 110/79
--- NOTE | 2019-05-10 15:20 | NUR ---
DR. REID HERE,RECEIVED VERBAL ORDER TO DISCHARGE PATIENT AND TO CALL IN RX. TO PATIENT PHARMACY FOR PREDNISONE 20 MG 1 TAB PO X 7 DAYS AND FOLLOW UP IN 1 WEEK
--- NOTE | 2019-05-10 15:28 | NUR ---
CALLED IN PATIENT PRESCRIPTION OF PREDNISONE 20 MG PO 1 TAB ONCE A DAY FOR 7 DAYS TO PATIENT PHARMACY [facility] [place] SPOKE TO MOISÉS
[2019-05-10 16:51] VITALS: BP 96/58
[2019-05-10 16:53] VITALS: BP_SYST 142; BP_SYST 96; BP_DIAS 58; BP_DIAS 75
--- NOTE | 2019-05-10 17:26 | NUR ---
Discharge instructions given as ordered. Encourage to follow up with PMD as instructed. All questions and concerns addressed. Patient verbalized understanding. Medication reconciliation form completed and copy given to patient. IV removed with catheter intact, pressure dressing applied,Telemetry unit returned to ICU. AWAITING FOR FAMILY FOR REHABILITATION TECH.
--- NOTE | 2019-05-10 18:43 | NUR ---
Patient taken to vehicle via wheelchair with all personal belongings, accompanied by staff and family member. No distress noted at time of departure.
== END 2019-05-10 18:43 | disposition home or self-care (01) | DRG 193 ==
LOC: ER 12:28 → TELE 12:29 → TELE-WESTW 20:16
PROVIDERS: ADMIT Internal Medicine Cardiovascular Disease; ATTEND Internal Medicine Cardiovascular Disease
DX: J18.9 Pneumonia, unspecified organism (principal); J96.90 Respiratory failure, unspecified, unspecified whether with hypoxia or hypercapnia; J44.0 Chronic obstructive pulmonary disease with (acute) lower respiratory infection; J44.1 Chronic obstructive pulmonary disease with (acute) exacerbation; I25.10 Atherosclerotic heart disease of native coronary artery without angina pectoris; I11.0 Hypertensive heart disease with heart failure; F17.210 Nicotine dependence, cigarettes, uncomplicated; E11.9 Type 2 diabetes mellitus without complications; I50.9 Heart failure, unspecified; Z86.718 Personal history of other venous thrombosis and embolism; Z86.73 Personal history of transient ischemic attack (TIA), and cerebral infarction without residual deficits; Z95.1 Presence of aortocoronary bypass graft; Z88.8 Allergy status to other drugs, medicaments and biological substances
CPT/HCPCS: 36415; 36600; 71046; 80053; 82805; 82962; 83605; 83735; 83880; 84484; 85025; 85610; 85730; 87040; 93005; 94640; 94761; G0378; J0696; J1815

== ENCOUNTER 2019-08-31 13:32 | Emergency (ER) | payer BC ==
[~2019-08-31] VITALS: Ht 162.6 cm; Wt 88.5 kg
[~2019-08-31 13:32] MED LIST changes: -ALPR-229 PO; +ALPR2TAB8 PO; -ATOR10TA52 PO; +ATOR20TA50 PO; -FENO1TAB42 OR; +FOLI1TAB6 PO; -INSU1INJ14 SC; -LAMO25TA66 OR; +LEVEMIR SC; -LISI30TA36 PO; +LISI30TA4 PO; -MELO1TAB73 PO; +METF-370 PO; -OMEP20TA PO
[2019-08-31] MEDS ORDERED: CLINDAMYCIN 600MG IV 50 ML IV ONE (14:30)
[2019-08-31 14:43] LABS: Basophils # (auto) 0.1 uL; Basophils % (auto) 0.7 % (0.0-2.0); Eosinophils # (auto) 0.5 uL; Eosinophils % (auto) 4.8 % (0.0-7.0); Hematocrit 44.7 % (36.0-46.0); Hemoglobin 15.3 g/dL (12.2-16.2); Lymphocytes # (auto) 1.6 uL; Lymphocytes % (auto) 16.4 % (10.0-50.0); Mean Corpuscular Hemoglobin 32.7 pg (28.0-32.0); Mean Corpuscular Hgb Conc. 34.3 g/dL (32.0-36.0); Mean Corpuscular Volume 95.3 fL (80.0-100.0); Monocytes # (auto) 0.9 uL; Monocytes % (auto) 9.5 % (0.0-12.0); Neutrophils # (auto) 6.7 uL; Neutrophils % (auto) 68.6 % (37.0-80.0); Platelet Count (auto) 218 10^3/uL (140-450); Red Blood Cells 4.68 10^6/uL (4.0-5.20); Red Cell Distribution Width 13.4 % (11.8-14.3); White Blood Cell 9.7 10^3/uL (4.4-10.8)
[2019-08-31 15:17] LABS: Albumin 3.4 g/dL (3.4-5.0); Anion Gap 9 (5-15); Blood Urea Nitrogen 9 mg/dL (7-18); Calcium 8.9 mg/dL (8.5-10.1); Carbon Dioxide 28 mmol/L (21-32); Chloride 104 mmol/L (98-107); Glucose 277 mg/dL (74-106); Potassium 3.2 mmol/L (3.5-5.1); Sodium 141 mmol/L (136-145)
[2019-08-31 15:23] LABS: Alanine Aminotransferase 23 U/L (13-56); Alkaline Phosphatase 65 U/L (45-117); Aspartate Aminotransferase 14 U/L (15-37); BUN/Creatinine Ratio 9.2; Bilirubin, Total 0.6 mg/dL (0.2-1.0); GFR African American 74 mL/min; GFR Non-African American 62 mL/min; Total Protein 6.9 g/dL (6.4-8.2)
[2019-08-31 16:50] VITALS: BP 97/64
== END 2019-08-31 17:25 | disposition home or self-care (01) ==
LOC: ER 13:32
DX: L03.115 Cellulitis of right lower limb (principal); I11.0 Hypertensive heart disease with heart failure; I50.9 Heart failure, unspecified; J44.9 Chronic obstructive pulmonary disease, unspecified; F17.210 Nicotine dependence, cigarettes, uncomplicated; Z88.8 Allergy status to other drugs, medicaments and biological substances; Z86.73 Personal history of transient ischemic attack (TIA), and cerebral infarction without residual deficits
CPT/HCPCS: 36415; 80053; 84484; 85025; 93005; 99284; J3490

== ENCOUNTER 2020-05-17 10:46 | Inpatient (IN) | payer BC ==
[~2020-05-17] VITALS: Ht 162.6 cm; Wt 85.9 kg
[2020-05-17 12:10] LABS: Basophils # (auto) 0.1 10 ^3/uL (0-0.2); Basophils % (auto) 1.1 % (0.0-2.0); Eosinophils # (auto) 0.5 10 ^3/uL (0-0.8); Eosinophils % (auto) 4.6 % (0.0-7.0); Hematocrit 42.7 % (36.0-46.0); Hemoglobin 14.8 g/dL (12.2-16.2); Lymphocytes # (auto) 2.4 10 ^3/uL (0.4-5.4); Lymphocytes % (auto) 22.6 % (10.0-50.0); Mean Corpuscular Hemoglobin 32.1 pg (28.0-32.0); Mean Corpuscular Hgb Conc. 34.6 g/dL (32.0-36.0); Mean Corpuscular Volume 92.9 fL (80.0-100.0); Monocytes # (auto) 1.1 10 ^3/uL (0-1.3); Monocytes % (auto) 10.6 % (0.0-12.0); Neutrophils # (auto) 6.5 10 ^3/uL (1.6-8.6); Neutrophils % (auto) 61.1 % (37.0-80.0); Platelet Count (auto) 241 10^3/uL (140-450); Red Blood Cells 4.59 10^6/uL (4.0-5.20); Red Cell Distribution Width 13.4 % (11.8-14.3); White Blood Cell 10.6 10^3/uL (4.4-10.8)
[2020-05-17 12:27] LABS: Albumin 3.3 g/dL (3.4-5.0); Anion Gap 5 (5-15); Blood Urea Nitrogen 8 mg/dL (7-18); Calcium 8.8 mg/dL (8.5-10.1); Carbon Dioxide 26 mmol/L (21-32); Chloride 106 mmol/L (98-107); Glucose 139 mg/dL (74-106); Potassium 3.8 mmol/L (3.5-5.1); Sodium 137 mmol/L (136-145)
[2020-05-17 12:33] LABS: Alanine Aminotransferase 32 U/L (13-56); Alkaline Phosphatase 82 U/L (45-117); Aspartate Aminotransferase 21 U/L (15-37); BUN/Creatinine Ratio 11.9; Bilirubin, Total 0.4 mg/dL (0.2-1.0); GFR African American 115 mL/min; GFR Non-African American 95 mL/min
[2020-05-17] MEDS ORDERED: NITROGLYCERIN 0.4 MG SL TAB SL PRN (14:30)
[2020-05-17] MEDS ORDERED: MORPHINE SULF INJ 2 MG/ML SYRINGE 1ML IV PRN (14:30)
[2020-05-17 16:20] VITALS: BP 110/64
--- NOTE | 2020-05-17 17:10 | NUR ---
MS admit from IGNACIO FISHMAN admitted to tele/MS after SBAR received. Patient oriented to JOHN SPAULDING, RN primary RN, unit, room, bed, and unit policies regarding patient care. Patient weighed by bedscale and encouraged to call if they need something. All questions and concerns addressed, patient verbalized understanding.
--- NOTE | 2020-05-17 18:35 | NUR ---
patient signed ama to smoke. educated patient on risks of smoking and risks of being off unit. patient verbalized understanding. patient still signed and is off unit to smoke at this time.
--- NOTE | 2020-05-17 19:21 | NUR ---
ENDORSED CARE TO NOC SHIFT RN
--- NOTE | 2020-05-17 19:30 | NUR ---
Opening Shift Note Received report from Elvin WHITTINGTON. Assumed care of patient, awake and alert. Patient on mild distress/SOB with generalized body pain at 10/10. Instructed on POC and to call for assist PRN, will continue to monitor for changes Q1hr and PRN.
[2020-05-17] MEDS: LEVALBUTEROL HCL 1.25 MG/3 ML NEB NEB SCH (19:57)
--- NOTE | 2020-05-17 20:49 | NUR ---
Informed MD of patient's pain level, request for sleeping pill and anxiety medication. Awaiting for call back.
[2020-05-17] MEDS: methylPREDNISolone SOD SUCC 40 MG/ML VL IV SCH (21:38)
[2020-05-17 22:00] VITALS: BP 109/66
[2020-05-18 05:00] VITALS: BP 123/73
--- NOTE | 2020-05-18 05:13 | NUR ---
Received orders from MD to increase O2 to 4LPM and start patient on BiPAP, carried out and followed through.
[2020-05-18] MEDS: LEVALBUTEROL HCL 1.25 MG/3 ML NEB NEB SCH ×3 (06:57→22:24)
--- NOTE | 2020-05-18 07:00 | NUR ---
Respiratory note: PT MADE AWARE OF BIPAP ORDER. PT STATED SHE ABSOLUTELY DOES NOT WANT TO WEAR IT. SHE STATED THAT IN THE PAST SHE USED A CPAP @ NOC, BUT DISCONTINUED IT ON HER OWN. RN AWARE. WILL CONTINUE TO MONITOR PT.
--- NOTE | 2020-05-18 07:30 | NUR ---
Opening Shift Note Assumed patient care from NOC RN. Patient is currently sitting up in bed, no signs of distress at this time. Respirations even and unlabored on 4L NC. Patient inquiring about home medications. Will notify MD. Safety precautions in place, will continue to monitor q1hr and PRN.
[2020-05-18 09:19] VITALS: BP 105/70
[2020-05-18] MEDS ORDERED: ATO40T PO (09:58)
--- NOTE | 2020-05-18 10:00 | NUR ---
Left message with Dr. Martinez regarding home medications.
--- NOTE | 2020-05-18 10:37 | NUR ---
New Orders New orders received from Dr. Martinez regarding home medications see EMR.
[2020-05-18] MEDS: AZITHROMYCIN 500MG/ 250ML 250 ML IV SCH (10:53)
[2020-05-18] MEDS: methylPREDNISolone SOD SUCC 40 MG/ML VL IV SCH ×2 (10:53→22:09)
[2020-05-18] MEDS ORDERED: DULoxetine HCL 30 MG CAP PO ONE ×2 (11:15)
[2020-05-18] MEDS ORDERED: DEXTROSE (50%) 50ML SYRG IV PRN (11:15)
[2020-05-18] MEDS ORDERED: FOLIC ACID 1 MG TAB PO ONE (11:15)
[2020-05-18] MEDS ORDERED: ASPirin 81 mg TAB PO ONE (11:15)
[2020-05-18] MEDS ORDERED: CLOPIDOGREL BISULFATE 75 MG TAB PO ONE (11:15)
[2020-05-18] MEDS ORDERED: methylPREDNISolone SOD SUCC 40 MG/ML VL IV ONE (11:45)
[2020-05-18] MEDS ORDERED: ISOSORBIDE MONONITRATE ER 60 MG TAB PO ONE (11:45)
[2020-05-18] MEDS ORDERED: PREGABALIN CAPSULE 75 MG CAP PO ONE (11:45)
[2020-05-18] MEDS ORDERED: METOPROLOL TARTRATE 50 MG TAB PO ONE (11:45)
[2020-05-18] MEDS ORDERED: LISINOPRIL 20 MG TAB PO ONE (11:45)
[2020-05-18] MEDS: ACCU-CHEK COMFORT CURVE STRIP VI SCH ×3 (12:00→22:09)
[2020-05-18] MEDS: InsuLIN REG 1unit/0.01ml Soln (100units/ml) SC SCH ×3 (12:04→22:09)
[2020-05-18 12:36] VITALS: BP 115/64
[2020-05-18] MEDS ORDERED: TEMAZEPAM 15 MG CAP PO PRN (13:30)
[2020-05-18] MEDS ORDERED: NITROGLYCERIN 0.4 MG SL TAB SL SCH (13:30)
[2020-05-18 17:06] VITALS: BP 129/65
--- NOTE | 2020-05-18 19:15 | NUR ---
Opening Shift Note Received report from Katy WHITTINGTON. Assumed care of patient, awake and alert. No S/S of distress/SOB or pain. Instructed on POC and to call for assist PRN, will continue to monitor for changes Q1hr and PRN.
[2020-05-18 22:00] VITALS: BP 125/91
[2020-05-18] MEDS ORDERED: ISOSORBIDE MONONITRATE ER 60 MG TAB PO SCH (22:00)
[2020-05-18] MEDS: metFORMIN HYDROCHLORIDE 500 MG TAB PO SCH (22:00)
[2020-05-18] MEDS ORDERED: PREGABALIN CAPSULE 75 MG CAP PO SCH (22:00)
[2020-05-18] MEDS ORDERED: METOPROLOL TARTRATE 50 MG TAB PO SCH (22:00)
[2020-05-18] MEDS ORDERED: ATORVASTATIN 20 MG TAB PO SCH (22:00)
[2020-05-18] MEDS: PREGABALIN CAPSULE 75 MG CAP PO SCH (22:04)
[2020-05-18] MEDS: LISINOPRIL 20 MG TAB PO SCH (22:05)
[2020-05-18] MEDS: ATORVASTATIN 20 MG TAB PO SCH (22:06)
[2020-05-18] MEDS: ALPRAZolam 0.5 MG TAB PO SCH (22:06)
[2020-05-18] MEDS: ISOSORBIDE MONONITRATE ER 60 MG TAB PO SCH (22:07)
[2020-05-18] MEDS: METOPROLOL TARTRATE 50 MG TAB PO SCH (22:08)
[2020-05-19 05:00] VITALS: BP 93/59
[2020-05-19] MEDS: LEVALBUTEROL HCL 1.25 MG/3 ML NEB NEB SCH ×3 (05:44→18:52)
[2020-05-19] MEDS: ACCU-CHEK COMFORT CURVE STRIP VI SCH ×4 (06:28→22:00)
[2020-05-19] MEDS: InsuLIN REG 1unit/0.01ml Soln (100units/ml) SC SCH ×5 (06:28→23:05)
[2020-05-19 09:00] VITALS: BP 112/79
[2020-05-19] MEDS: ISOSORBIDE MONONITRATE ER 60 MG TAB PO SCH ×2 (09:54→23:04)
[2020-05-19] MEDS: DULoxetine HCL 30 MG CAP PO SCH (09:55)
[2020-05-19] MEDS: PREGABALIN CAPSULE 75 MG CAP PO SCH ×2 (09:56→23:02)
[2020-05-19] MEDS: ASPirin 81 mg TAB PO SCH (09:57)
[2020-05-19] MEDS ORDERED: CLOPIDOGREL BISULFATE 75 MG TAB PO SCH (10:00)
[2020-05-19] MEDS ORDERED: ASPirin 81 mg TAB PO SCH (10:00)
[2020-05-19] MEDS: LISINOPRIL 20 MG TAB PO SCH ×2 (10:00→22:00)
[2020-05-19] MEDS ORDERED: FOLIC ACID 1 MG TAB PO SCH (10:00)
[2020-05-19] MEDS ORDERED: FUROSEMIDE 40 MG TAB PO SCH (10:00)
[2020-05-19] MEDS ORDERED: DULoxetine HCL 30 MG CAP PO SCH (10:00)
[2020-05-19] MEDS: ALPRAZolam 0.5 MG TAB PO SCH ×2 (10:02→22:00)
[2020-05-19] MEDS: FUROSEMIDE 40 MG TAB PO SCH (10:03)
[2020-05-19] MEDS: CLOPIDOGREL BISULFATE 75 MG TAB PO SCH (10:04)
[2020-05-19] MEDS: AZITHROMYCIN 500MG/ 250ML 250 ML IV SCH (10:05)
[2020-05-19] MEDS: FOLIC ACID 1 MG TAB PO SCH (10:05)
[2020-05-19] MEDS: methylPREDNISolone SOD SUCC 40 MG/ML VL IV SCH ×2 (10:06→22:00)
[2020-05-19] MEDS: NICOTINE 14 MG/24HR TOPICAL PATCH TD SCH (10:08)
[2020-05-19] MEDS: METOPROLOL TARTRATE 50 MG TAB PO SCH ×2 (10:15→23:01)
--- NOTE | 2020-05-19 12:10 | NUR ---
Nutrition Assessment Est energy needs 6597-2499 kcal (20-25 kcal/kg BW 82.4kg) Est protein needs 55-71g (1-1.3g/kg IBW 55kg) Will monitor and reassess prn. Addendum: 05/19/20 at [address] Amended: Links added.
[2020-05-19 13:11] VITALS: BP 120/62
[2020-05-19 16:53] VITALS: BP 106/73
--- NOTE | 2020-05-19 19:03 | NUR ---
Patient care endorsed endorsed care to Davi rn. Patient resting comfortably in bed no acute distress or sob noted. Call light within reach.
[2020-05-19 22:00] VITALS: BP 115/64
[2020-05-19] MEDS: metFORMIN HYDROCHLORIDE 500 MG TAB PO SCH (22:00)
[2020-05-19] MEDS: ATORVASTATIN 20 MG TAB PO SCH (23:02)
[2020-05-20 05:00] VITALS: BP 104/58
[2020-05-20] MEDS: LEVALBUTEROL HCL 1.25 MG/3 ML NEB NEB SCH ×3 (06:18→22:45)
[2020-05-20] MEDS: ACCU-CHEK COMFORT CURVE STRIP VI SCH ×4 (06:48→21:46)
[2020-05-20] MEDS: InsuLIN REG 1unit/0.01ml Soln (100units/ml) SC SCH ×4 (06:49→21:53)
[2020-05-20 09:00] VITALS: BP 124/70
[2020-05-20] MEDS: ASPirin 81 mg TAB PO SCH (09:58)
[2020-05-20] MEDS: NICOTINE 14 MG/24HR TOPICAL PATCH TD SCH (09:58)
[2020-05-20] MEDS: FUROSEMIDE 40 MG TAB PO SCH (09:59)
[2020-05-20] MEDS: ALPRAZolam 0.5 MG TAB PO SCH ×2 (09:59→21:37)
[2020-05-20] MEDS: DULoxetine HCL 30 MG CAP PO SCH (09:59)
[2020-05-20] MEDS: ISOSORBIDE MONONITRATE ER 60 MG TAB PO SCH ×2 (10:00→21:39)
[2020-05-20] MEDS: FOLIC ACID 1 MG TAB PO SCH (10:00)
[2020-05-20] MEDS: LISINOPRIL 20 MG TAB PO SCH ×2 (10:00→21:45)
[2020-05-20] MEDS: METOPROLOL TARTRATE 50 MG TAB PO SCH ×2 (10:00→21:39)
[2020-05-20] MEDS: CLOPIDOGREL BISULFATE 75 MG TAB PO SCH (10:00)
[2020-05-20] MEDS: AZITHROMYCIN 500MG/ 250ML 250 ML IV SCH (10:02)
[2020-05-20] MEDS: methylPREDNISolone SOD SUCC 40 MG/ML VL IV SCH ×2 (10:16→21:38)
[2020-05-20] MEDS: PREGABALIN CAPSULE 75 MG CAP PO SCH ×2 (10:16→21:38)
[2020-05-20] MEDS: HYDROcodone-ACET 10/325MG TAB PO PRN (11:09)
[2020-05-20 13:00] VITALS: BP 98/69
--- NOTE | 2020-05-20 13:10 | NUR ---
MD at bedside MD Martinez aware of patient's status including decreased BP and meds held. Patient still wheezing. Awaiting new orders at this time. Cont care
[2020-05-20] MEDS ORDERED: MONTELUKAST SODIUM 10 MG TAB PO ONE (13:45)
[2020-05-20 17:00] VITALS: BP 121/63
--- NOTE | 2020-05-20 19:10 | NUR ---
Patient care endorsed endorsed care to Davi rn, patient laying in bed in no acute distress or sob. Call light within reach
[2020-05-20 20:35] VITALS: BP 121/63
[2020-05-20] MEDS: FEXOFENADINE HCL 60 MG TAB PO SCH (21:37)
[2020-05-20] MEDS: MONTELUKAST SODIUM 10 MG TAB PO SCH (21:37)
[2020-05-20] MEDS: ATORVASTATIN 20 MG TAB PO SCH (21:38)
[2020-05-20] MEDS: metFORMIN HYDROCHLORIDE 500 MG TAB PO SCH (21:46)
[2020-05-20 22:00] VITALS: BP_SYST 111; BP_SYST 136; BP_DIAS 77; BP_DIAS 88
[2020-05-21 05:00] VITALS: BP_SYST 134; BP_SYST 137; BP_DIAS 77; BP_DIAS 86
[2020-05-21] MEDS: LEVALBUTEROL HCL 1.25 MG/3 ML NEB NEB SCH ×3 (06:30→22:08)
[2020-05-21] MEDS: ACCU-CHEK COMFORT CURVE STRIP VI SCH ×4 (06:52→21:52)
[2020-05-21] MEDS: InsuLIN REG 1unit/0.01ml Soln (100units/ml) SC SCH ×3 (06:53→17:28)
--- NOTE | 2020-05-21 07:50 | NUR ---
Opening Shift Note Assumed care of patient, awake and alert. No S/S of distress/SOB or pain. Instructed on POC and to call for assist PRN, will continue to monitor for changes Q1hr and PRN.
[2020-05-21 08:00] VITALS: BP 107/66
[2020-05-21 09:00] VITALS: BP 107/66
--- NOTE | 2020-05-21 09:40 | NUR ---
medication dose clarification Contacted Dr. Martinez for isosorbide dose clarification. Received order to give isosorbide 60mg BID. Notified pharmacy of the order.
--- NOTE | 2020-05-21 10:00 | NUR ---
Patient off unit to smoke Per patient in bed A.
--- NOTE | 2020-05-21 10:15 | NUR ---
RE: Smoking Patient returned to unit. Patient stated "I only smoke 1 cigarette a day now. I didn't have a patch on." Smoking cessation education provided. Patient verbalized understanding. Patient stated "I am slowly working on stopping."
[2020-05-21] MEDS: ASPirin 81 mg TAB PO SCH (10:27)
[2020-05-21] MEDS: FEXOFENADINE HCL 60 MG TAB PO SCH ×2 (10:27→21:49)
[2020-05-21] MEDS: AZITHROMYCIN 500MG/ 250ML 250 ML IV SCH (10:27)
[2020-05-21] MEDS: methylPREDNISolone SOD SUCC 40 MG/ML VL IV SCH ×2 (10:27→21:48)
[2020-05-21] MEDS: FUROSEMIDE 40 MG TAB PO SCH (10:28)
[2020-05-21] MEDS: METOPROLOL TARTRATE 50 MG TAB PO SCH ×2 (10:28→21:52)
[2020-05-21] MEDS: CLOPIDOGREL BISULFATE 75 MG TAB PO SCH (10:28)
[2020-05-21] MEDS: DULoxetine HCL 30 MG CAP PO SCH (10:29)
[2020-05-21] MEDS: ISOSORBIDE MONONITRATE ER 60 MG TAB PO SCH ×2 (10:29→21:49)
[2020-05-21] MEDS: NICOTINE 14 MG/24HR TOPICAL PATCH TD SCH (10:30)
[2020-05-21] MEDS: PREGABALIN CAPSULE 75 MG CAP PO SCH ×2 (10:30→21:49)
[2020-05-21] MEDS: ALPRAZolam 0.5 MG TAB PO SCH ×2 (10:31→21:48)
[2020-05-21] MEDS: LISINOPRIL 20 MG TAB PO SCH ×2 (10:31→21:50)
[2020-05-21] MEDS: FOLIC ACID 1 MG TAB PO SCH (10:38)
[2020-05-21] MEDS: HYDROcodone-ACET 10/325MG TAB PO PRN ×2 (11:40→20:34)
[2020-05-21 13:00] VITALS: BP 100/62
[2020-05-21 16:52] VITALS: BP 128/74
--- NOTE | 2020-05-21 17:12 | NUR ---
RE: Elevated POC glucose Contacted Dr. Martinez to notify of elevated POC glucose level. Message left for
--- NOTE | 2020-05-21 17:31 | NUR ---
RE: Elevated POC Glucose Notified Dr. Martinez of elevated POC glucose. MD verbalized understanding. Order received and read back to verify.
[2020-05-21] MEDS ORDERED: DEXTROSE (50%) 50ML SYRG IV PRN (18:00)
--- NOTE | 2020-05-21 19:29 | NUR ---
Care endorsed/closing note Patient resting in bed with even and unlabored respirations on room air, no distress noted. Fall precautions in place with call light within reach. Care endorsed to PK Pradhan.
[2020-05-21 21:00] VITALS: BP_SYST 105; BP_SYST 122; BP_DIAS 50; BP_DIAS 65
[2020-05-21] MEDS: ATORVASTATIN 20 MG TAB PO SCH (21:48)
[2020-05-21] MEDS: metFORMIN HYDROCHLORIDE 500 MG TAB PO SCH (21:49)
[2020-05-21] MEDS: MONTELUKAST SODIUM 10 MG TAB PO SCH (21:49)
[2020-05-21] MEDS ORDERED: InsuLIN REG 1unit/0.01ml Soln (100units/ml) SC SCH (22:00)
[2020-05-22 05:00] VITALS: BP_SYST 117; BP_SYST 133; BP_DIAS 69; BP_DIAS 82
[2020-05-22] MEDS: LEVALBUTEROL HCL 1.25 MG/3 ML NEB NEB SCH ×2 (06:05→14:24)
[2020-05-22] MEDS: ACCU-CHEK COMFORT CURVE STRIP VI SCH ×2 (06:24→11:37)
[2020-05-22] MEDS: InsuLIN REG 1unit/0.01ml Soln (100units/ml) SC SCH ×2 (06:27→11:46)
--- NOTE | 2020-05-22 07:45 | NUR ---
Opening Shift Note Assumed care of patient, awake and alert. No S/S of distress/SOB. Instructed on POC and to call for assist PRN, will continue to monitor for changes Q1hr and PRN.
[2020-05-22 08:00] VITALS: BP 109/64
[2020-05-22 09:00] VITALS: BP 109/64
[2020-05-22] MEDS: methylPREDNISolone SOD SUCC 40 MG/ML VL IV SCH (09:44)
[2020-05-22] MEDS: METOPROLOL TARTRATE 50 MG TAB PO SCH (09:45)
[2020-05-22] MEDS: CLOPIDOGREL BISULFATE 75 MG TAB PO SCH (09:45)
[2020-05-22] MEDS: FOLIC ACID 1 MG TAB PO SCH (09:46)
[2020-05-22] MEDS: DULoxetine HCL 30 MG CAP PO SCH (09:46)
[2020-05-22] MEDS: NICOTINE 14 MG/24HR TOPICAL PATCH TD SCH (09:46)
[2020-05-22] MEDS: ASPirin 81 mg TAB PO SCH (09:47)
[2020-05-22] MEDS: FEXOFENADINE HCL 60 MG TAB PO SCH (09:47)
[2020-05-22] MEDS: PREGABALIN CAPSULE 75 MG CAP PO SCH (09:47)
[2020-05-22] MEDS: FUROSEMIDE 40 MG TAB PO SCH (09:48)
[2020-05-22] MEDS: ISOSORBIDE MONONITRATE ER 60 MG TAB PO SCH (09:48)
[2020-05-22] MEDS: ALPRAZolam 0.5 MG TAB PO SCH (09:49)
[2020-05-22] MEDS: LISINOPRIL 20 MG TAB PO SCH (09:49)
[2020-05-22] MEDS ORDERED: AZITHROMYCIN 250 MG TAB PO SCH (10:00)
[2020-05-22] MEDS: HYDROcodone-ACET 10/325MG TAB PO PRN (10:04)
--- NOTE | 2020-05-22 11:24 | NUR ---
Nutrition Followup Note Wt 85.9 kg Pt was awake and oriented when rounded this am. per pt no N.V with fair appetite. per pt able to tolerate PO. pt is currently on 2 gm na diet with adequate PO of > 75% x 4 per RN doc Est energy needs [id number] kcal (20-25 kcal/kg BW 82.4kg) Est protein needs 55-71g (1-1.3g/kg IBW 55kg) Will monitor and reassess prn. Labs: No new labs today POC GLU 344 h BM: Pt with 2 BMs 05/18 per Rn note Skin: BS 21 low risk, full details in personal care aide note PES: Obesity aeb pt with a BMI of 31.2kg/m2 r/t caloric intake in excess of needs Comments Will continue to monitor po intake, skin status, pertinent labs and weight trends. Will f/u in 3-5 days Rec: 1) refer to CDE on DC. 2) consider CCHO 60 gm along with curent diet as pt with hx of DM elev blood glu. 3) continue current plan of care
--- NOTE | 2020-05-22 11:30 | NUR ---
Respiratory note: PATIENT ASSESSED FOR ROOM AIR ABG PER DR. Gracia ZHENG'S ORDER. PATIENT WAS TAKEN OFF O2 AND LEFT FOR 20MIN; UPON CHECKING SPO2 PRIOR TO DRAWING R/A ABG, PATIENT WAS 94%. I SPOKE WITH PK CONRAD TO INFORM HER THAT PATIENT WOULD NOT QUALIFY FOR HOME O2 IF I TRINI TO BLOOD AT THIS TIME, AND THAT I WAS GOING TO ALLOW HIM MORE TIME ON ROOM AIR TO ALLOW SATS TO DROP LOWER. PK CONRAD UNDERSTOOD, AND WAS IN AGREEMENT WITH PLAN. Addendum: 05/22/20 at 1435 by Theo Washington RT DISREGARD NOTE, CHARTED ON WRONG PATIENT. PATIENT WAS NEVER TAKEN OFF O2 AND REMAINS CONTINUOUSLY ON 3LPM NASAL CANNULA.
[2020-05-22 13:00] VITALS: BP 115/84
--- NOTE | 2020-05-22 16:34 | NUR ---
Discharge prescriptions called into preferred pharmacy Spoke with Poppy.
--- NOTE | 2020-05-22 16:56 | NUR ---
Discharge Discharge paperwork and education provided to the patient per MD order. Patient verbalized understanding. Instructed patient on scheduled follow up appointment and discharge prescriptions. Patient verbalized understanding. IV removed with aseptic technique, catheter intact. Dressing and pressure applied. Patient tolerated well, no trauma to site. Patient reports having all personal belongings. Respirations even and unlabored on room air, no distress noted. Patient to notify staff once ready to depart unit.
[2020-05-22 16:59] VITALS: BP 109/62
--- NOTE | 2020-05-22 17:07 | NUR ---
Patient transferred to private vehicle via wheelchair Patient reports having all personal belongings. No distress noted.
== END 2020-05-22 17:05 | disposition home or self-care (01) | DRG 189 ==
LOC: ER 10:46 → OVERFLOW 10:47 → WEST WING 17:27
PROVIDERS: ADMIT Internal Medicine Cardiovascular Disease; ATTEND Internal Medicine Cardiovascular Disease
DX: J96.00 Acute respiratory failure, unspecified whether with hypoxia or hypercapnia (principal); J44.1 Chronic obstructive pulmonary disease with (acute) exacerbation; I50.32 Chronic diastolic (congestive) heart failure; E11.9 Type 2 diabetes mellitus without complications; E66.9 Obesity, unspecified; F17.210 Nicotine dependence, cigarettes, uncomplicated; Z88.8 Allergy status to other drugs, medicaments and biological substances; I11.0 Hypertensive heart disease with heart failure; I25.10 Atherosclerotic heart disease of native coronary artery without angina pectoris; Z80.9 Family history of malignant neoplasm, unspecified; Z82.49 Family history of ischemic heart disease and other diseases of the circulatory system; Z83.3 Family history of diabetes mellitus; Z86.73 Personal history of transient ischemic attack (TIA), and cerebral infarction without residual deficits; Z95.1 Presence of aortocoronary bypass graft; Z20.828 Contact with and (suspected) exposure to other viral communicable diseases; Z68.32 Body mass index [BMI] 32.0-32.9, adult; I25.2 Old myocardial infarction; Z79.4 Long term (current) use of insulin
CPT/HCPCS: 36415; 36600; 71045; 80053; 82805; 82962; 83605; 83880; 84484; 85025; 85379; 87040; 87426; 93005; 94640; 96374; G0378; J1815

== ENCOUNTER → 2020-08-07 | Outpatient (CLI) | payer BC ==
[~2020-08-07] MED LIST changes: +ATO40T PO; -ATOR20TA50 PO; -CLOP75TA41 PO; +CLOP75TA70 PO
[2020-08-07 11:55] LABS: Cholesterol 146 mg/dL (< 200); HDL Cholesterol 44 mg/dL (40-59); LDL Cholesterol 77 mg/dL (< 100); Triglycerides 212 mg/dL (< 150)
== END | disposition home or self-care (01) ==
LOC: LAB 10:45
PROVIDERS: ATTEND Internal Medicine
DX: I10 Essential (primary) hypertension (principal); E11.9 Type 2 diabetes mellitus without complications; J44.9 Chronic obstructive pulmonary disease, unspecified; E78.5 Hyperlipidemia, unspecified
CPT/HCPCS: 36415; 80061; 82043; 82306; 83036; 84443

== ENCOUNTER 2020-09-10 12:32 | Inpatient (IN) | payer BC ==
[~2020-09-10] VITALS: Ht 162.6 cm; Wt 97.9 kg
[2020-09-10] MEDS ORDERED: ASPirin 81 mg TAB PO ONE (12:45)
[2020-09-10] MEDS ORDERED: ONDANSETRON HCL 4 MG/2 ML VIAL IV ONE (12:45)
[2020-09-10] MEDS ORDERED: MORPHINE SULFATE 4 MG/ML SYR/VIAL IV ONE (12:45)
[2020-09-10 13:21] LABS: Basophils # (auto) 0.1 10 ^3/uL (0-0.2); Basophils % (auto) 1.2 % (0.0-2.0); Eosinophils # (auto) 0.8 10 ^3/uL (0-0.8); Hematocrit 44.6 % (36.0-46.0); Hemoglobin 15.7 g/dL (12.2-16.2); Lymphocytes # (auto) 2.6 10 ^3/uL (0.4-5.4); Lymphocytes % (auto) 28.8 % (10.0-50.0); Mean Corpuscular Hemoglobin 32.9 pg (28.0-32.0); Mean Corpuscular Hgb Conc. 35.3 g/dL (32.0-36.0); Mean Corpuscular Volume 93.2 fL (80.0-100.0); Monocytes # (auto) 0.7 10 ^3/uL (0-1.3); Monocytes % (auto) 7.6 % (0.0-12.0); Neutrophils # (auto) 4.8 10 ^3/uL (1.6-8.6); Neutrophils % (auto) 53.4 % (37.0-80.0); Nucleated Red Blood Cells % 0.1 %; Platelet Count (auto) 244 10^3/uL (140-450); Red Blood Cells 4.79 10^6/uL (4.0-5.20); Red Cell Distribution Width 13.6 % (11.8-14.3)
[2020-09-10 13:43] LABS: Albumin 3.7 g/dL (3.4-5.0); Blood Urea Nitrogen 11 mg/dL (7-18); Calcium 9.4 mg/dL (8.5-10.1); Carbon Dioxide 26 mmol/L (21-32); Glucose 131 mg/dL (74-106)
[2020-09-10 13:44] LABS: INR 0.97 (0.9-1.15); Partial Thromboplastin Time 31.2 sec (23.0-31.2)
[2020-09-10 13:53] LABS: Alanine Aminotransferase 28 U/L (13-56); Alkaline Phosphatase 91 U/L (45-117); Anion Gap 9 (5-15); Aspartate Aminotransferase 18 U/L (15-37); BUN/Creatinine Ratio 12.5; Bilirubin, Total 0.2 mg/dL (0.2-1.0); Chloride 106 mmol/L (98-107); GFR African American 84 mL/min; GFR Non-African American 69 mL/min; Potassium 3.8 mmol/L (3.5-5.1); Sodium 141 mmol/L (136-145); Total Protein 7.4 g/dL (6.4-8.2)
[2020-09-10] MEDS ORDERED: MORPHINE SULF INJ 2 MG/ML SYRINGE 1ML IV PRN (15:15)
[2020-09-10] MEDS ORDERED: DEXTROSE (50%) 50ML SYRG IV PRN (15:15)
[2020-09-10] MEDS ORDERED: ACETAMINOPHEN 500 MG TAB PO PRN (15:15)
[2020-09-10] MEDS ORDERED: NITROGLYCERIN 0.4 MG SL TAB SL PRN (15:15)
[2020-09-10] MEDS ORDERED: ONDANSETRON HCL 4 MG/2 ML VIAL IV PRN (15:15)
[2020-09-10] MEDS ORDERED: ALPRAZolam 0.5 MG TAB PO PRN (15:30)
[2020-09-10] MEDS: LEVALBUTEROL HCL 1.25 MG/3 ML NEB NEB SCH ×2 (15:46→18:05)
[2020-09-10] MEDS: IPRATROPIUM BROM 0.5 MG/2.5ML INH SOL NEB SCH ×2 (15:47→18:05)
[2020-09-10 16:15] VITALS: BP 127/78
[2020-09-10] MEDS: InsuLIN REG 1unit/0.01ml Soln (100units/ml) SC SCH ×2 (17:00→22:00)
[2020-09-10] MEDS: ACCU-CHEK COMFORT CURVE STRIP VI SCH ×2 (17:09→22:00)
[2020-09-10] MEDS ORDERED: NICOTINE 14 MG/24HR TOPICAL PATCH TD ONE (17:15)
[2020-09-10] MEDS ORDERED: ENOXAPARIN SOD 80 MG/0.8ML SYRINGE SC ONE (17:15)
[2020-09-10] MEDS ORDERED: ATOR20TA50 PO (18:06)
[2020-09-10] MEDS ORDERED: ALPR0.254 PO (18:08)
[2020-09-10] MEDS ORDERED: METF-771 PO (18:13)
[2020-09-10] MEDS ORDERED: INSU1INJ5 SC (18:13)
[2020-09-10] MEDS ORDERED: CHOL500023 PO (18:14)
[2020-09-10] MEDS: HYDROcodone-ACET 5/325MG TAB PO PRN (18:57)
[2020-09-10] MEDS: ATORVASTATIN 20 MG TAB PO SCH (22:00)
[2020-09-10] MEDS: LISINOPRIL 20 MG TAB PO SCH (22:00)
[2020-09-10] MEDS: PREGABALIN CAPSULE 75 MG CAP PO SCH (22:00)
[2020-09-10] MEDS: MORPHINE SULF INJ 2 MG/ML SYRINGE 1ML IV PRN (22:00)
[2020-09-10] MEDS: ISOSORBIDE MONONITRATE ER 60 MG TAB PO SCH (22:00)
[2020-09-10] MEDS: METOPROLOL TARTRATE 50 MG TAB PO SCH (22:00)
[2020-09-11] MEDS: MORPHINE SULF INJ 2 MG/ML SYRINGE 1ML IV PRN ×3 (00:22→21:43)
[2020-09-11] MEDS: IPRATROPIUM BROM 0.5 MG/2.5ML INH SOL NEB SCH ×4 (00:25→18:45)
[2020-09-11] MEDS: LEVALBUTEROL HCL 1.25 MG/3 ML NEB NEB SCH ×5 (00:25→23:37)
[2020-09-11 05:04] VITALS: BP 133/77
[2020-09-11] MEDS: ACCU-CHEK COMFORT CURVE STRIP VI SCH ×4 (06:50→22:29)
[2020-09-11] MEDS: InsuLIN REG 1unit/0.01ml Soln (100units/ml) SC SCH ×4 (06:51→22:31)
[2020-09-11] MEDS ORDERED: INFLUENZA QUAD 2020-2021 0.5 ML SYRG IM ONE (08:30)
[2020-09-11 08:48] LABS: Basophils # (auto) 0.1 10 ^3/uL (0-0.2); Basophils % (auto) 0.9 % (0.0-2.0); Eosinophils # (auto) 0.7 10 ^3/uL (0-0.8); Eosinophils % (auto) 7.7 % (0.0-7.0); Hematocrit 42.8 % (36.0-46.0); Hemoglobin 14.5 g/dL (12.2-16.2); Lymphocytes % (auto) 23.2 % (10.0-50.0); Mean Corpuscular Hemoglobin 32.1 pg (28.0-32.0); Mean Corpuscular Volume 94.5 fL (80.0-100.0); Monocytes # (auto) 0.6 10 ^3/uL (0-1.3); Neutrophils # (auto) 5.4 10 ^3/uL (1.6-8.6); Neutrophils % (auto) 61.2 % (37.0-80.0); Nucleated Red Blood Cells % 0.1 %; Platelet Count (auto) 206 10^3/uL (140-450); Red Blood Cells 4.53 10^6/uL (4.0-5.20); Red Cell Distribution Width 13.5 % (11.8-14.3); White Blood Cell 8.8 10^3/uL (4.4-10.8)
[2020-09-11 09:00] VITALS: BP 133/77
[2020-09-11 09:03] LABS: BUN/Creatinine Ratio 17.6; Calcium 9.1 mg/dL (8.5-10.1); Potassium 4.2 mmol/L (3.5-5.1)
[2020-09-11 09:05] LABS: Partial Thromboplastin Time 35.4 sec (23.0-31.2)
[2020-09-11] MEDS: INSULIN LANTUS (GLARGINE) 1 /0.01ml (100units/ml) SC SCH (10:00)
[2020-09-11] MEDS: METOPROLOL TARTRATE 50 MG TAB PO SCH ×2 (10:00→22:26)
[2020-09-11] MEDS: ASPirin 81 mg TAB PO SCH (10:24)
[2020-09-11] MEDS: DULoxetine HCL 30 MG CAP PO SCH (10:24)
[2020-09-11] MEDS: ISOSORBIDE MONONITRATE ER 60 MG TAB PO SCH ×2 (10:25→22:29)
[2020-09-11] MEDS: PREGABALIN CAPSULE 75 MG CAP PO SCH ×2 (10:25→22:26)
[2020-09-11] MEDS: FAMOTIDINE 20 MG TAB PO SCH (10:25)
[2020-09-11] MEDS: LISINOPRIL 20 MG TAB PO SCH ×2 (10:26→22:28)
[2020-09-11] MEDS: CLOPIDOGREL BISULFATE 75 MG TAB PO SCH (10:26)
[2020-09-11] MEDS: NICOTINE 14 MG/24HR TOPICAL PATCH TD SCH (10:34)
[2020-09-11] MEDS ORDERED: IODIXANOL 320MG/ML 100ML BTL IV ONE (12:02)
[2020-09-11] MEDS ORDERED: LIDOCAINE 2%HCL (LOCAL ANESTH.) INJ 20ML MDV ONE (12:03)
[2020-09-11] MEDS ORDERED: fentaNYL CITRATE 100 MCG/2 ML VL ONE (12:26)
[2020-09-11] MEDS ORDERED: SODIUM CHL 0.9% 0 ML ONE (12:26)
[2020-09-11] MEDS ORDERED: ANGIOMAX 250 MG VIAL IV ONE (12:26)
[2020-09-11] MEDS ORDERED: VERAPAMIL 2.5MG/ML INJ 2ML VIAL IV ONE (12:26)
[2020-09-11] MEDS ORDERED: MIDAZOLAM HCL 1MG/1ML-2 ML VIAL ONE (12:26)
[2020-09-11] MEDS ORDERED: HEPARIN SODIUM (PORCINE) 5000 UNITS/ML 1ML VIAL ONE (12:27)
[2020-09-11 17:00] VITALS: BP 104/69
[2020-09-11 22:00] VITALS: BP 135/67
[2020-09-11] MEDS: ATORVASTATIN 20 MG TAB PO SCH (22:27)
[2020-09-12 05:00] VITALS: BP 121/71
[2020-09-12] MEDS: ACCU-CHEK COMFORT CURVE STRIP VI SCH ×2 (07:01→11:58)
[2020-09-12] MEDS: InsuLIN REG 1unit/0.01ml Soln (100units/ml) SC SCH ×2 (07:02→11:30)
[2020-09-12 07:40] LABS: Urine Bacteria FEW /hpf (None Seen); Urine Blood Negative /uL (Negative); Urine Specific Gravity 1.015 (1.001-1.035); Urine WBC <1 /hpf (0 - 5)
[2020-09-12 08:59] VITALS: BP 135/86
[2020-09-12] MEDS: LEVALBUTEROL HCL 1.25 MG/3 ML NEB NEB SCH ×2 (09:03→15:37)
[2020-09-12] MEDS: IPRATROPIUM BROM 0.5 MG/2.5ML INH SOL NEB SCH ×2 (09:03→15:37)
[2020-09-12] MEDS: ASPirin 81 mg TAB PO SCH (09:22)
[2020-09-12] MEDS: DULoxetine HCL 30 MG CAP PO SCH (09:23)
[2020-09-12] MEDS: ISOSORBIDE MONONITRATE ER 60 MG TAB PO SCH (09:24)
[2020-09-12] MEDS: METOPROLOL TARTRATE 50 MG TAB PO SCH (09:24)
[2020-09-12] MEDS: CLOPIDOGREL BISULFATE 75 MG TAB PO SCH (09:25)
[2020-09-12] MEDS: PREGABALIN CAPSULE 75 MG CAP PO SCH (09:25)
[2020-09-12] MEDS: FAMOTIDINE 20 MG TAB PO SCH (09:25)
[2020-09-12] MEDS: NICOTINE 14 MG/24HR TOPICAL PATCH TD SCH (09:31)
[2020-09-12] MEDS: INSULIN LANTUS (GLARGINE) 1 /0.01ml (100units/ml) SC SCH (09:31)
[2020-09-12] MEDS: HYDROcodone-ACET 5/325MG TAB PO PRN (09:33)
[2020-09-12] MEDS: LISINOPRIL 20 MG TAB PO SCH (11:54)
[2020-09-12 13:00] VITALS: BP 128/90
[2020-09-12 15:06] VITALS: BP 135/86
== END 2020-09-12 15:55 | disposition home or self-care (01) | DRG 287 ==
LOC: ER 12:32 → TELE 12:33 → TELE-WESTW 09-11 05:04
PROVIDERS: ADMIT Nurse Practitioner Acute Care; ATTEND Family Medicine
PROC: 4A023N7 Measurement of Cardiac Sampling and Pressure, Left Heart, Percutaneous Approach (ICD-10-PCS; principal; 2020-09-11)
PROC: B2111ZZ Fluoroscopy of Multiple Coronary Arteries using Low Osmolar Contrast (ICD-10-PCS; 2020-09-11)
PROC: B2131ZZ Fluoroscopy of Multiple Coronary Artery Bypass Grafts using Low Osmolar Contrast (ICD-10-PCS; 2020-09-11)
PROC: B2151ZZ Fluoroscopy of Left Heart using Low Osmolar Contrast (ICD-10-PCS; 2020-09-11)
DX: I24.9 Acute ischemic heart disease, unspecified (principal); I13.0 Hypertensive heart and chronic kidney disease with heart failure and stage 1 through stage 4 chronic kidney disease, or unspecified chronic kidney disease; E11.22 Type 2 diabetes mellitus with diabetic chronic kidney disease; E11.51 Type 2 diabetes mellitus with diabetic peripheral angiopathy without gangrene; E66.9 Obesity, unspecified; E78.00 Pure hypercholesterolemia, unspecified; E78.5 Hyperlipidemia, unspecified; F17.210 Nicotine dependence, cigarettes, uncomplicated; Z20.822 Contact with and (suspected) exposure to COVID-19; Z88.8 Allergy status to other drugs, medicaments and biological substances; Z91.011 Allergy to milk products; Z68.30 Body mass index [BMI] 30.0-30.9, adult; Z95.1 Presence of aortocoronary bypass graft; Z86.73 Personal history of transient ischemic attack (TIA), and cerebral infarction without residual deficits; Z82.5 Family history of asthma and other chronic lower respiratory diseases; N18.30 Chronic kidney disease, stage 3 unspecified; I25.10 Atherosclerotic heart disease of native coronary artery without angina pectoris; I50.9 Heart failure, unspecified; I70.0 Atherosclerosis of aorta; J44.9 Chronic obstructive pulmonary disease, unspecified; M79.7 Fibromyalgia; Z79.02 Long term (current) use of antithrombotics/antiplatelets; Z79.899 Other long term (current) drug therapy; Z79.4 Long term (current) use of insulin; Z79.82 Long term (current) use of aspirin; Z80.9 Family history of malignant neoplasm, unspecified; Z82.49 Family history of ischemic heart disease and other diseases of the circulatory system; Z83.3 Family history of diabetes mellitus
CPT/HCPCS: 36415; 71045; 80048; 80053; 81001; 82962; 83036; 83880; 84443; 84484; 85025; 85610; 85730; 86141; 87426; 93005; 93306; 94640; 96372; 96374; 96375; 99152; 99153; G0378; J1815; J2250; J2405; Q9967

== ENCOUNTER → 2020-12-25 | Outpatient (CLI) | payer BC ==
[~2020-12-25] MED LIST changes: +ALPR0.254 PO; -ALPR2TAB8 PO; -ATO40T PO; +ATOR20TA50 PO; +CHOL500023 PO; +INSU1INJ5 SC; -LEVEMIR SC; -METF-370 PO; +METF-771 PO
== END | disposition home or self-care (01) ==
LOC: LAB 11:15
PROVIDERS: ATTEND Internal Medicine
DX: E11.9 Type 2 diabetes mellitus without complications (principal); J44.9 Chronic obstructive pulmonary disease, unspecified
CPT/HCPCS: 36415; 82306; 83036

== ENCOUNTER → 2021-06-11 | Outpatient (CLI) | payer BC ==
[2021-06-11 10:20] LABS: Basophils # (auto) 0.1 10 ^3/uL (0-0.2); Eosinophils # (auto) 0.2 10 ^3/uL (0-0.8); Eosinophils % (auto) 2.2 % (0.0-7.0); Hematocrit 48.1 % (36.0-46.0); Hemoglobin 16.3 g/dL (12.2-16.2); Lymphocytes # (auto) 3.8 10 ^3/uL (0.4-5.4); Lymphocytes % (auto) 35.9 % (10.0-50.0); Mean Corpuscular Hemoglobin 31.9 pg (28.0-32.0); Mean Corpuscular Hgb Conc. 33.9 g/dL (32.0-36.0); Mean Corpuscular Volume 94.1 fL (80.0-100.0); Neutrophils # (auto) 5.4 10 ^3/uL (1.6-8.6); Neutrophils % (auto) 50.9 % (37.0-80.0); Nucleated Red Blood Cells % 0.1 %; Red Blood Cells 5.11 10^6/uL (4.0-5.20); Red Cell Distribution Width 13.4 % (11.8-14.3); White Blood Cell 10.5 10^3/uL (4.4-10.8)
[2021-06-11 10:47] LABS: Albumin 3.6 g/dL (3.4-5.0); Calcium 8.8 mg/dL (8.5-10.1); Potassium 4.1 mmol/L (3.5-5.1)
[2021-06-11 10:51] LABS: BUN/Creatinine Ratio 18.5; Bilirubin, Total 0.4 mg/dL (0.2-1.0); Total Protein 6.6 g/dL (6.4-8.2)
== END | disposition home or self-care (01) ==
LOC: LAB 09:57
PROVIDERS: ATTEND Internal Medicine
DX: J94.9 Pleural condition, unspecified (principal); I25.10 Atherosclerotic heart disease of native coronary artery without angina pectoris; E11.9 Type 2 diabetes mellitus without complications
CPT/HCPCS: 36415; 80053; 83036; 83880; 85025

== ENCOUNTER 2021-10-18 09:06 | Inpatient (IN) | payer BC ==
[~2021-10-18] VITALS: Ht 162.6 cm; Wt 78.2 kg
[2021-10-18 11:51] LABS: Basophils # (auto) 0 10 ^3/uL (0-0.2); Basophils % (auto) 0.3 % (0.0-2.0); Eosinophils # (auto) 0.6 10 ^3/uL (0-0.8); Eosinophils % (auto) 8.6 % (0.0-7.0); Hematocrit 38.3 % (36.0-46.0); Hemoglobin 12.8 g/dL (12.2-16.2); Lymphocytes # (auto) 2.7 10 ^3/uL (0.4-5.4); Lymphocytes % (auto) 35.8 % (10.0-50.0); Mean Corpuscular Hemoglobin 28.9 pg (28.0-32.0); Mean Corpuscular Hgb Conc. 33.3 g/dL (32.0-36.0); Monocytes # (auto) 0.8 10 ^3/uL (0-1.3); Monocytes % (auto) 10.9 % (0.0-12.0); Neutrophils # (auto) 3.4 10 ^3/uL (1.6-8.6); Neutrophils % (auto) 44.4 % (37.0-80.0); Red Blood Cells 4.41 10^6/uL (4.0-5.20); White Blood Cell 7.5 10^3/uL (4.4-10.8)
[2021-10-18 12:09] LABS: Albumin 3.2 g/dL (3.4-5.0); BUN/Creatinine Ratio 12.3; Calcium 8.7 mg/dL (8.5-10.1); Magnesium 2.1 mg/dL (1.6-2.6)
[2021-10-18 12:12] LABS: Bilirubin, Total 0.3 mg/dL (0.2-1.0); Total Protein 6.5 g/dL (6.4-8.2)
[2021-10-18] MEDS ORDERED: AZITHROMYCIN 500MG/ 250ML 250 ML IV ONE (12:45)
[2021-10-18] MEDS ORDERED: cefTRIAXone 1GM/50ML D5W 50 ML IV ONE (12:45)
[2021-10-18] MEDS ORDERED: ALPRAZolam 0.25 MG TAB PO SCH (14:00)
[2021-10-18] MEDS ORDERED: MORPHINE SULFATE INJECTION 2 MG/ML SYRG IV PRN ×2 (14:15→15:30)
[2021-10-18] MEDS ORDERED: FUROSEMIDE 100 MG/10ML VIAL IV ONE (14:15)
[2021-10-18] MEDS ORDERED: NITROGLYCERIN 0.4 MG SL TAB SL PRN ×2 (14:15→15:30)
[2021-10-18] MEDS ORDERED: HYDROcodone-ACET 5/325MG TAB PO PRN (15:30)
[2021-10-18] MEDS ORDERED: FAMOTIDINE (10MG/ML) 2ML VL IV ONE (15:30)
[2021-10-18] MEDS ORDERED: hydrOXYzine 25 MG TAB or CAP PO PRN (15:30)
[2021-10-18] MEDS ORDERED: DEXTROSE (50%) 50ML SYRG IV PRN (15:30)
[2021-10-18] MEDS ORDERED: DOXYCYCLINE 100MG/250ML 250 ML IV ONE (15:30)
[2021-10-18] MEDS ORDERED: ALBUTEROL SULF 2.5 MG/0.5ML(0.5%) NEB SOLN NEB ONE (15:30)
[2021-10-18] MEDS ORDERED: LORazepam 2MG/ML-1ML VIAL IV PRN (15:30)
[2021-10-18] MEDS ORDERED: BUDESONIDE (INHALATION) 0.5 MG/2 ML NEB NEB ONE (15:30)
[2021-10-18] MEDS ORDERED: HYDROcodone-ACET 5/325MG TAB PO ONE (15:30)
[2021-10-18] MEDS ORDERED: FOLIC ACID 1 MG TAB PO ONE (15:30)
[2021-10-18] MEDS ORDERED: DOCUSATE SOD 100 MG CAP PO PRN (15:30)
[2021-10-18] MEDS ORDERED: hydrALAZINE HCL 20 MG/ML VL IV PRN (15:30)
[2021-10-18] MEDS ORDERED: ALBUTEROL SULF 2.5 MG/0.5ML(0.5%) NEB SOLN NEB PRN (15:30)
[2021-10-18] MEDS ORDERED: ONDANSETRON HCL 4 MG/2 ML VIAL IV PRN (15:30)
[2021-10-18] MEDS ORDERED: IPRATROPIUM BROM 0.5 MG/2.5ML INH SOL NEB ONE (15:30)
[2021-10-18] MEDS ORDERED: LACTULOSE 20Gm/30ML SOLN PO PRN (15:30)
[2021-10-18] MEDS ORDERED: ALPRAZolam 0.5 MG TAB PO PRN (15:30)
[2021-10-18 15:45] LABS: Magnesium 1.9 mg/dL (1.6-2.6); Phosphorus 3.3 mg/dL (2.5-4.90)
[2021-10-18 16:20] LABS: INR 1.01 (0.9-1.15); Partial Thromboplastin Time 32.4 sec (23.6-33.0)
[2021-10-18] MEDS ORDERED: InsuLIN REG 1unit/0.01ml Soln (100units/ml) SC SCH ×2 (17:00→22:00)
[2021-10-18] MEDS: IPRATROPIUM BROM 0.5 MG/2.5ML INH SOL NEB SCH ×2 (18:04→22:00)
[2021-10-18] MEDS: ACCU-CHEK COMFORT CURVE STRIP VI SCH ×2 (18:08→22:07)
[2021-10-18] MEDS ORDERED: methylPREDNISolone SOD SUCC 125 MG/2 ML VL IV ONE (18:15)
[2021-10-18 19:43] VITALS: BP 120/69
[2021-10-18 22:00] VITALS: BP 97/57
[2021-10-18] MEDS ORDERED: CARVEDILOL 3.125 MG TAB PO SCH (22:00)
[2021-10-18] MEDS ORDERED: BUDESONIDE (INHALATION) 0.5 MG/2 ML NEB NEB SCH (22:00)
[2021-10-18] MEDS ORDERED: ATORVASTATIN 20 MG TAB PO SCH (22:00)
[2021-10-18] MEDS ORDERED: GABAPENTIN 300 MG CAP PO SCH (22:00)
[2021-10-18] MEDS ORDERED: ACETYLCYSTEINE 10 %(100MG/ML) SOL 4ML NEB SCH (22:00)
[2021-10-19] MEDS ORDERED: PREGABALIN CAPSULE 75 MG CAP PO ONE (00:30)
[2021-10-19] MEDS ORDERED: DOXYCYCLINE 100MG/250ML 250 ML IV SCH (04:30)
[2021-10-19] MEDS ORDERED: FUROSEMIDE 40 MG/4 ML VIAL IV SCH (06:00)
[2021-10-19] MEDS ORDERED: methylPREDNISolone SOD SUCC 40 MG/ML VL IV SCH (06:00)
[2021-10-19] MEDS ORDERED: DULoxetine HCL 30 MG CAP PO SCH (10:00)
[2021-10-19] MEDS ORDERED: FOLIC ACID 1 MG TAB PO SCH (10:00)
[2021-10-19] MEDS ORDERED: CLOPIDOGREL BISULFATE 75 MG TAB PO SCH (10:00)
[2021-10-19] MEDS ORDERED: ENOXAPARIN SOD 40 MG/0.4 ML SYRINGE SC SCH (10:00)
[2021-10-19] MEDS ORDERED: CHOLECALCIFEROL (VITD3) 2,000 UNIT CAP/TAB PO SCH (10:00)
[2021-10-19] MEDS ORDERED: BENAZEPRIL HCL 10 MG TAB PO SCH (10:00)
[2021-10-19] MEDS ORDERED: PREGABALIN CAPSULE 75 MG CAP PO SCH (10:00)
[2021-10-19] MEDS ORDERED: ASPirin 81 mg TAB PO SCH (10:00)
[2021-10-19] MEDS ORDERED: FAMOTIDINE (10MG/ML) 2ML VL IV SCH (10:00)
== END 2021-10-19 01:30 | disposition left against medical advice (07) | DRG 193 ==
LOC: ER 09:06 → TELE 14:02 → TELE-EAST 17:39
PROVIDERS: ADMIT Hospitalist; ATTEND Hospitalist
DX: J18.0 Bronchopneumonia, unspecified organism (principal); I50.33 Acute on chronic diastolic (congestive) heart failure; J96.21 Acute and chronic respiratory failure with hypoxia; J96.22 Acute and chronic respiratory failure with hypercapnia; J44.0 Chronic obstructive pulmonary disease with (acute) lower respiratory infection; J44.1 Chronic obstructive pulmonary disease with (acute) exacerbation; E11.9 Type 2 diabetes mellitus without complications; E78.5 Hyperlipidemia, unspecified; F17.210 Nicotine dependence, cigarettes, uncomplicated; I11.0 Hypertensive heart disease with heart failure; F41.9 Anxiety disorder, unspecified; I25.119 Atherosclerotic heart disease of native coronary artery with unspecified angina pectoris; Z20.822 Contact with and (suspected) exposure to COVID-19; I25.5 Ischemic cardiomyopathy; M79.7 Fibromyalgia; I27.9 Pulmonary heart disease, unspecified; Z86.73 Personal history of transient ischemic attack (TIA), and cerebral infarction without residual deficits; Z79.4 Long term (current) use of insulin; Z79.82 Long term (current) use of aspirin; Z80.9 Family history of malignant neoplasm, unspecified; Z82.49 Family history of ischemic heart disease and other diseases of the circulatory system; Z83.3 Family history of diabetes mellitus; Z95.1 Presence of aortocoronary bypass graft; Z79.899 Other long term (current) drug therapy; I25.2 Old myocardial infarction; Z95.5 Presence of coronary angioplasty implant and graft; Z98.51 Tubal ligation status
CPT/HCPCS: 36415; 36600; 71045; 80053; 82805; 82962; 83735; 83880; 84100; 84484; 85025; 85379; 85610; 85730; 87040; 87086; 93005; 94640; 96365; 96367; 96368; 96375; G0378; J0696; J1815; J3490

== ENCOUNTER 2021-12-31 11:26 | Inpatient (IN) | payer BC ==
[~2021-12-31] VITALS: Ht 160 cm; Wt 76.0 kg
[2021-12-31] MEDS ORDERED: SODIUM CHLORIDE 0.9% 500 ML IVB ONE (11:30)
[2021-12-31 12:01] LABS: Basophils # (auto) 0.1 10 ^3/uL (0-0.2); Eosinophils # (auto) 0.2 10 ^3/uL (0-0.8); Eosinophils % (auto) 2.7 % (0.0-7.0); Hemoglobin 11.9 g/dL (12.2-16.2); Lymphocytes # (auto) 1.8 10 ^3/uL (0.4-5.4); Mean Corpuscular Volume 80.8 fL (80.0-100.0); Neutrophils # (auto) 5.5 10 ^3/uL (1.6-8.6); White Blood Cell 8.6 10^3/uL (4.4-10.8)
[2021-12-31 12:02] LABS: Basophils % (auto) 0.9 % (0.0-2.0); Hematocrit 37.3 % (36.0-46.0); Mean Corpuscular Hemoglobin 25.8 pg (28.0-32.0); Mean Corpuscular Hgb Conc. 31.9 g/dL (32.0-36.0); Monocytes % (auto) 11.8 % (0.0-12.0); Neutrophils % (auto) 63.6 % (37.0-80.0); Red Blood Cells 4.61 10^6/uL (4.0-5.20); Red Cell Distribution Width 16.9 % (11.8-14.3)
[2021-12-31 12:23] LABS: INR 1.07 (0.9-1.15); Partial Thromboplastin Time 31.7 sec (23.6-33.0)
[2021-12-31 12:33] LABS: Albumin 3.7 g/dL (3.4-5.0); BUN/Creatinine Ratio 14.3; Calcium 8.8 mg/dL (8.5-10.1); Magnesium 2.1 mg/dL (1.6-2.6)
[2021-12-31 12:36] LABS: Bilirubin, Total 0.3 mg/dL (0.2-1.0)
[2021-12-31] MEDS ORDERED: DOCUSATE SOD 100 MG CAP PO PRN (14:30)
[2021-12-31] MEDS ORDERED: ONDANSETRON HCL 4 MG/2 ML VIAL IV PRN (14:30)
[2021-12-31] MEDS ORDERED: MORPHINE SULFATE INJ 2 MG/ml SYRG IV PRN ×2 (14:30)
[2021-12-31] MEDS: D5W/SOD CHL 0.45% 1,000 ML IV SCH ×2 (14:30→22:42)
[2021-12-31] MEDS ORDERED: ACETAMINOPHEN 325 MG TAB PO PRN (14:30)
[2021-12-31] MEDS ORDERED: NITROGLYCERIN 0.4 MG SL TAB SL PRN (14:30)
[2021-12-31] MEDS ORDERED: HYDROcodone-ACET 5/325MG TAB PO PRN (14:30)
[2021-12-31] MEDS ORDERED: DEXTROSE (50%) 50ML SYRG IV PRN (15:00)
[2021-12-31] MEDS: PIPERACILLIN-TAZOB 3.375GM 100 ML IV SCH ×2 (15:00→22:40)
[2021-12-31] MEDS ORDERED: B-COMPLEX W/ C & FOLIC ACID(NEPHROVITE TAB) PO ONE (15:00)
[2021-12-31] MEDS: ALBUTEROL SULF 2.5 MG/0.5ML(0.5%) NEB SOLN NEB SCH ×3 (16:54→22:50)
[2021-12-31] MEDS: IPRATROPIUM BROM 0.5 MG/2.5ML INH SOL NEB PRN ×3 (16:54→22:50)
[2021-12-31] MEDS: InsuLIN REG 1unit/0.01ml Soln (100units/ml) SC SCH ×2 (17:00→22:43)
[2021-12-31] MEDS: ACCU-CHEK COMFORT CURVE STRIP VI SCH ×2 (17:03→22:00)
[2021-12-31 18:12] LABS: Cholesterol 119 mg/dL (< 200)
[2021-12-31 18:15] LABS: HDL Cholesterol 36 mg/dL (40-59); LDL Cholesterol 67 mg/dL (< 100); Triglycerides 115 mg/dL (< 150)
[2021-12-31] MEDS: BUDESONIDE (INHALATION) 0.5 MG/2 ML NEB NEB SCH (18:26)
[2021-12-31] MEDS: methylPREDNISolone SOD SUCC 40 MG/ML VL IV SCH (22:41)
[2021-12-31] MEDS: METOPROLOL TARTRATE 50 MG TAB PO SCH (22:41)
[2021-12-31 23:54] VITALS: BP 151/55
[2022-01-01] MEDS: ALBUTEROL SULF 2.5 MG/0.5ML(0.5%) NEB SOLN NEB SCH ×5 (02:57→22:00)
[2022-01-01] MEDS: IPRATROPIUM BROM 0.5 MG/2.5ML INH SOL NEB PRN ×3 (02:57→19:15)
[2022-01-01 03:54] VITALS: BP 151/55
[2022-01-01] MEDS: methylPREDNISolone SOD SUCC 40 MG/ML VL IV SCH (06:22)
[2022-01-01] MEDS: PIPERACILLIN-TAZOB 3.375GM 100 ML IV SCH (06:23)
[2022-01-01] MEDS: InsuLIN REG 1unit/0.01ml Soln (100units/ml) SC SCH ×4 (06:30→22:00)
[2022-01-01] MEDS: ACCU-CHEK COMFORT CURVE STRIP VI SCH ×4 (06:33→22:03)
[2022-01-01 08:00] VITALS: BP 133/61
[2022-01-01] MEDS: BUDESONIDE (INHALATION) 0.5 MG/2 ML NEB NEB SCH (09:07)
[2022-01-01] MEDS ORDERED: ENOXAPARIN SOD 40 MG/0.4 ML SYRINGE SC SCH (10:00)
[2022-01-01] MEDS ORDERED: FUROSEMIDE 40 MG/4 ML VIAL IV SCH (10:00)
[2022-01-01] MEDS ORDERED: CLOPIDOGREL BISULFATE 75 MG TAB PO ONE ×2 (10:00→10:30)
[2022-01-01] MEDS ORDERED: LORazepam 2MG/ML-1ML VIAL IV ONE (10:30)
[2022-01-01] MEDS ORDERED: FUROSEMIDE 20 MG/2 ML VIAL IV ONE (10:30)
[2022-01-01] MEDS ORDERED: levoFLOXacin 500 MG TAB PO ONE (10:30)
[2022-01-01] MEDS: THIAMINE 100mg/ml INJ (200mg/2ml VIAL) IV SCH (10:49)
[2022-01-01] MEDS: PANTOPRAZOLE 40 MG/10 ML VIAL INJ IV SCH (10:50)
[2022-01-01] MEDS: ASPirin 81 mg TAB PO SCH (10:50)
[2022-01-01] MEDS: METOPROLOL TARTRATE 50 MG TAB PO SCH ×2 (10:51→21:50)
[2022-01-01] MEDS: B-COMPLEX W/ C & FOLIC ACID(NEPHROVITE TAB) PO SCH (10:51)
[2022-01-01 11:33] LABS: Folate (Folic Acid) 12.36 ng/mL (5.38-24)
[2022-01-01 11:43] LABS: Urine WBC None Seen /hpf (0 - 5)
[2022-01-01 12:00] VITALS: BP 135/64
[2022-01-01 12:10] LABS: Alcohol, Urine < 3.0 mg/dL (0-10); Amphetamine Screen, Urine NEGATIVE (NEGATIVE); Barbiturate Scree,Urine NEGATIVE (NEGATIVE); Benzodiazephine Screen, Urine NEGATIVE (NEGATIVE); Cannabinoid Screen, Urine NEGATIVE (NEGATIVE); Cocaine Screen, Urine NEGATIVE (NEGATIVE); Opiate Scree,Urine POSITIVE (NEGATIVE); Phencyclidine Screen, Urine NEGATIVE (NEGATIVE)
[2022-01-01 13:46] LABS: Urine Bacteria NONE SEEN /hpf (None Seen); Urine Blood Negative /uL (Negative); Urine Specific Gravity 1.011 (1.001-1.035)
[2022-01-01 16:00] VITALS: BP 146/80
[2022-01-02] MEDS: ALBUTEROL SULF 2.5 MG/0.5ML(0.5%) NEB SOLN NEB SCH ×4 (00:19→10:10)
[2022-01-02] MEDS: ACCU-CHEK COMFORT CURVE STRIP VI SCH ×2 (06:33→11:30)
[2022-01-02] MEDS: InsuLIN REG 1unit/0.01ml Soln (100units/ml) SC SCH ×2 (06:35→12:36)
[2022-01-02 06:49] LABS: BUN/Creatinine Ratio 17.4; Calcium 9.2 mg/dL (8.5-10.1); Phosphorus 3.3 mg/dL (2.5-4.90); Potassium 3.5 mmol/L (3.5-5.1)
[2022-01-02] MEDS: IPRATROPIUM BROM 0.5 MG/2.5ML INH SOL NEB PRN (06:50)
[2022-01-02 08:06] LABS: RPR Non Reactive (Non Reactive)
[2022-01-02] MEDS ORDERED: ADENOSINE 64 MG in GIVE UN-DILUTED 0 ML IV ONE (08:30)
[2022-01-02 08:59] VITALS: BP 156/75
[2022-01-02] MEDS ORDERED: CYANOCOBALAMIN (B-12) 1000 MCG/1 ML VIAL IM ONE (09:30)
[2022-01-02] MEDS ORDERED: NICOTINE 7MG/24HR TOPICAL PATCH TD SCH (10:00)
[2022-01-02] MEDS ORDERED: CLOPIDOGREL BISULFATE 75 MG TAB PO SCH (10:00)
[2022-01-02] MEDS: METOPROLOL TARTRATE 50 MG TAB PO SCH (10:00)
[2022-01-02] MEDS ORDERED: FUROSEMIDE 20 MG/2 ML VIAL IV SCH (10:00)
[2022-01-02] MEDS ORDERED: levoFLOXacin 500 MG TAB PO SCH (10:00)
[2022-01-02] MEDS ORDERED: CYANOCOBALAMIN (B-12) 1000 MCG/1 ML VIAL IM SCH (10:00)
[2022-01-02] MEDS: THIAMINE 100mg/ml INJ (200mg/2ml VIAL) IV SCH (10:44)
[2022-01-02] MEDS: ASPirin 81 mg TAB PO SCH (10:45)
[2022-01-02] MEDS: PANTOPRAZOLE 40 MG/10 ML VIAL INJ IV SCH (10:45)
[2022-01-02] MEDS ORDERED: ALPR0.5T7 PO (11:28)
[2022-01-02] MEDS ORDERED: FLUT1AER3 IN (11:28)
[2022-01-02] MEDS ORDERED: ATOR10TA52 PO (11:28)
[2022-01-02] MEDS ORDERED: CARI-277 PO (11:28)
[2022-01-02] MEDS ORDERED: LEVO-28 PO (12:12)
[2022-01-02] MEDS: B-COMPLEX W/ C & FOLIC ACID(NEPHROVITE TAB) PO SCH (12:31)
[2022-01-02 13:00] VITALS: BP 149/98
[2022-01-02 15:32] VITALS: BP 156/75
== END 2022-01-02 16:20 | disposition home or self-care (01) | DRG 91 ==
LOC: ER 11:26 → EDBD 11:26 → TELE 14:26 → TELE-EAST 22:05
PROVIDERS: ADMIT Family Medicine; ATTEND Internal Medicine
DX: G92.8 Other toxic encephalopathy (principal); I50.23 Acute on chronic systolic (congestive) heart failure; J18.9 Pneumonia, unspecified organism; J96.90 Respiratory failure, unspecified, unspecified whether with hypoxia or hypercapnia; G93.1 Anoxic brain damage, not elsewhere classified; Z20.822 Contact with and (suspected) exposure to COVID-19; F10.10 Alcohol abuse, uncomplicated; I25.10 Atherosclerotic heart disease of native coronary artery without angina pectoris; G47.30 Sleep apnea, unspecified; Z79.899 Other long term (current) drug therapy
CPT/HCPCS: 36415; 70450; 70551; 71045; 80048; 80053; 80061; 80307; 80320; 81001; 82140; 82607; 82746; 82962; 83036; 83735; 83880; 84100; 84443; 84484; 85025; 85610; 85730; 86592; 93005; 93306; 94640; 96360; C9113; G0378; J1815; J2543

== ENCOUNTER 2022-04-03 12:49 | Inpatient (IN) | payer BC ==
[~2022-04-03] VITALS: Ht 162.6 cm; Wt 77.1 kg
[~2022-04-03 12:49] MED LIST changes: -ALPR0.254 PO; +ALPR0.5T7 PO; -ASPI81CH43 PO; +ATOR10TA52 PO; -ATOR20TA50 PO; +CARI-277 PO; -CHOL500023 PO; +FLUT1AER3 IN; -FOLI1TAB6 PO; -FURO40TA4 PO; +LEVO-28 PO; -NITR0.4S29 SL
[2022-04-03] MEDS ORDERED: methylPREDNISolone SOD SUCC 125 MG/2 ML VL IV ONE (13:15)
[2022-04-03] MEDS ORDERED: FUROSEMIDE 40 MG/4 ML VIAL IV ONE (13:15)
[2022-04-03 13:49] LABS: Albumin 3.4 g/dL (3.4-5.0); Calcium 8.7 mg/dL (8.5-10.1)
[2022-04-03 13:52] LABS: BUN/Creatinine Ratio 27.1; Bilirubin, Total 0.3 mg/dL (0.2-1.0); Total Protein 6.5 g/dL (6.4-8.2)
[2022-04-03 14:04] LABS: Basophils % (auto) 0.7 % (0.0-2.0); Eosinophils % (auto) 1.9 % (0.0-7.0); Monocytes % (auto) 9.5 % (0.0-12.0); Neutrophils % (auto) 64.9 % (37.0-80.0); White Blood Cell 11.9 10^3/uL (4.4-10.8)
[2022-04-03 14:05] LABS: Basophils # (auto) 0.1 10 ^3/uL (0-0.2); Eosinophils # (auto) 0.2 10 ^3/uL (0-0.8); Hematocrit 38.7 % (36.0-46.0); Lymphocytes # (auto) 2.7 10 ^3/uL (0.4-5.4); Mean Corpuscular Hemoglobin 22.9 pg (28.0-32.0); Mean Corpuscular Hgb Conc. 30.9 g/dL (32.0-36.0); Mean Corpuscular Volume 74.1 fL (80.0-100.0); Monocytes # (auto) 1.1 10 ^3/uL (0-1.3); Neutrophils # (auto) 7.8 10 ^3/uL (1.6-8.6); Nucleated Red Blood Cells % 0.2 %; Red Blood Cells 5.23 10^6/uL (4.0-5.20); Red Cell Distribution Width 19.5 % (11.8-14.3)
[2022-04-03] MEDS ORDERED: IOHEXOL 350 MG/ML 100ML IJ ONE (14:19)
[2022-04-03] MEDS ORDERED: cefTRIAXone 1GM/50ML D5W 50 ML IV ONE (14:45)
[2022-04-03] MEDS ORDERED: NITROGLYCERIN 0.4 MG SL TAB SL PRN (15:30)
[2022-04-03] MEDS ORDERED: MORPHINE SULFATE INJ 2 MG/ml SYRG IV PRN ×2 (15:30)
[2022-04-03] MEDS ORDERED: ALBUTEROL SULF 2.5 MG/0.5ML(0.5%) NEB SOLN NEB PRN (15:45)
[2022-04-03] MEDS ORDERED: AZITHROMYCIN 500MG/ 250ML 250 ML IV ONE (15:45)
[2022-04-03] MEDS ORDERED: IPRATROPIUM BROM 0.5 MG/2.5ML INH SOL NEB PRN (15:45)
[2022-04-03 16:28] LABS: Cholesterol 120 mg/dL (< 200); Triglycerides 196 mg/dL (< 150)
[2022-04-03 16:31] LABS: HDL Cholesterol 53 mg/dL (40-59); LDL Cholesterol 47 mg/dL (< 100)
[2022-04-03] MEDS: SODIUM CHLORIDE 0.9% 1,000 ML IV SCH (16:51)
[2022-04-03] MEDS: ALPRAZolam 0.5 MG TAB PO SCH ×2 (17:32→22:02)
[2022-04-03 17:53] VITALS: BP 120/79
[2022-04-03] MEDS: ALBUTEROL SULF 2.5 MG/0.5ML(0.5%) NEB SOLN NEB SCH (18:45)
[2022-04-03] MEDS: IPRATROPIUM BROM 0.5 MG/2.5ML INH SOL NEB SCH (18:45)
[2022-04-03] MEDS: ISOSORBIDE MONONITRATE ER 60 MG TAB PO SCH (21:58)
[2022-04-03] MEDS: LISINOPRIL 10 MG TAB PO SCH (22:00)
[2022-04-03] MEDS: METOPROLOL TARTRATE 50 MG TAB PO SCH (22:00)
[2022-04-03] MEDS: ATORVASTATIN 20 MG TAB PO SCH (22:01)
[2022-04-03] MEDS: CARISOPRODOL 350 MG TAB PO SCH (22:02)
[2022-04-03] MEDS: PREGABALIN CAPSULE 75 MG CAP PO SCH (22:03)
[2022-04-04] MEDS: SODIUM CHLORIDE 0.9% 1,000 ML IV SCH ×3 (01:45→21:45)
[2022-04-04 05:10] VITALS: BP 120/51
[2022-04-04 05:37] LABS: Basophils # (auto) 0 10 ^3/uL (0-0.2); Basophils % (auto) 0.4 % (0.0-2.0); Eosinophils # (auto) 0 10 ^3/uL (0-0.8); Hemoglobin 11.7 g/dL (12.2-16.2); Lymphocytes # (auto) 1.3 10 ^3/uL (0.4-5.4); Mean Corpuscular Hemoglobin 22.7 pg (28.0-32.0); Monocytes # (auto) 0.5 10 ^3/uL (0-1.3); Monocytes % (auto) 5.9 % (0.0-12.0); Nucleated Red Blood Cells % 0.1 %
[2022-04-04 05:40] LABS: Hematocrit 38.1 % (36.0-46.0); Lymphocytes % (auto) 15.2 % (10.0-50.0); Mean Corpuscular Hgb Conc. 30.6 g/dL (32.0-36.0); Neutrophils # (auto) 6.8 10 ^3/uL (1.6-8.6); Neutrophils % (auto) 78.5 % (37.0-80.0); Red Blood Cells 5.15 10^6/uL (4.0-5.20); Red Cell Distribution Width 19.3 % (11.8-14.3); White Blood Cell 8.6 10^3/uL (4.4-10.8)
[2022-04-04] MEDS: methylPREDNISolone SOD SUCC 40 MG/ML VL IV SCH ×3 (05:45→21:14)
[2022-04-04 06:03] LABS: Potassium 5.2 mmol/L (3.5-5.1)
[2022-04-04 06:10] LABS: Albumin 3.4 g/dL (3.4-5.0); Bilirubin, Total 0.3 mg/dL (0.2-1.0); Calcium 9.2 mg/dL (8.5-10.1); Total Protein 6.3 g/dL (6.4-8.2)
[2022-04-04] MEDS: IPRATROPIUM BROM 0.5 MG/2.5ML INH SOL NEB SCH ×3 (06:33→19:10)
[2022-04-04] MEDS: ALBUTEROL SULF 2.5 MG/0.5ML(0.5%) NEB SOLN NEB SCH ×3 (06:33→19:10)
[2022-04-04] MEDS: PANTOPRAZOLE 40 MG/10 ML VIAL INJ IV SCH (08:58)
[2022-04-04] MEDS: AZITHROMYCIN 500MG/ 250ML 250 ML IV SCH (08:58)
[2022-04-04] MEDS: PREGABALIN CAPSULE 75 MG CAP PO SCH ×2 (08:59→21:11)
[2022-04-04] MEDS: ISOSORBIDE MONONITRATE ER 60 MG TAB PO SCH ×2 (08:59→21:10)
[2022-04-04] MEDS: cefTRIAXone 1GM/50ML D5W 50 ML IV SCH (08:59)
[2022-04-04 09:00] VITALS: BP 103/67
[2022-04-04] MEDS: CLOPIDOGREL BISULFATE 75 MG TAB PO SCH (09:00)
[2022-04-04] MEDS: DULoxetine HCL 30 MG CAP PO SCH (09:00)
[2022-04-04] MEDS: METOPROLOL TARTRATE 50 MG TAB PO SCH ×2 (09:00→22:00)
[2022-04-04] MEDS: CARISOPRODOL 350 MG TAB PO SCH ×2 (09:01→21:11)
[2022-04-04] MEDS: LISINOPRIL 10 MG TAB PO SCH ×2 (09:02→22:00)
[2022-04-04] MEDS: NICOTINE 14 MG/24HR TOPICAL PATCH TD SCH (09:02)
[2022-04-04] MEDS ORDERED: ENOXAPARIN SOD 40 MG/0.4 ML SYRINGE SC SCH (10:00)
[2022-04-04 13:00] VITALS: BP 101/71
[2022-04-04 17:06] VITALS: BP 111/67
[2022-04-04] MEDS: ALPRAZolam 0.5 MG TAB PO PRN ×2 (17:59→22:16)
[2022-04-04] MEDS: ATORVASTATIN 20 MG TAB PO SCH (21:10)
[2022-04-04 22:00] VITALS: BP 103/54
[2022-04-05 05:00] VITALS: BP 103/63
[2022-04-05] MEDS: methylPREDNISolone SOD SUCC 40 MG/ML VL IV SCH ×3 (06:30→21:36)
[2022-04-05] MEDS: ALBUTEROL SULF 2.5 MG/0.5ML(0.5%) NEB SOLN NEB SCH ×3 (06:36→18:16)
[2022-04-05] MEDS: IPRATROPIUM BROM 0.5 MG/2.5ML INH SOL NEB SCH ×3 (06:36→18:16)
[2022-04-05] MEDS: SODIUM CHLORIDE 0.9% 1,000 ML IV SCH ×2 (07:45→17:50)
[2022-04-05] MEDS: cefTRIAXone 1GM/50ML D5W 50 ML IV SCH (08:56)
[2022-04-05 09:00] VITALS: BP 115/70
[2022-04-05] MEDS: NICOTINE 14 MG/24HR TOPICAL PATCH TD SCH (10:00)
[2022-04-05] MEDS: LISINOPRIL 10 MG TAB PO SCH ×3 (10:00→22:00)
[2022-04-05] MEDS: PANTOPRAZOLE 40 MG/10 ML VIAL INJ IV SCH (10:19)
[2022-04-05] MEDS: AZITHROMYCIN 500MG/ 250ML 250 ML IV SCH (10:19)
[2022-04-05] MEDS: METOPROLOL TARTRATE 50 MG TAB PO SCH ×2 (10:20→22:00)
[2022-04-05] MEDS: CLOPIDOGREL BISULFATE 75 MG TAB PO SCH (10:20)
[2022-04-05] MEDS: ISOSORBIDE MONONITRATE ER 60 MG TAB PO SCH ×2 (10:20→21:37)
[2022-04-05] MEDS: PREGABALIN CAPSULE 75 MG CAP PO SCH ×2 (10:21→21:37)
[2022-04-05] MEDS: DULoxetine HCL 30 MG CAP PO SCH (10:21)
[2022-04-05] MEDS: CARISOPRODOL 350 MG TAB PO SCH ×2 (10:21→21:39)
[2022-04-05 13:00] VITALS: BP 100/56
[2022-04-05] MEDS: ALPRAZolam 0.5 MG TAB PO PRN ×2 (14:13→21:46)
[2022-04-05 17:00] VITALS: BP 119/62
[2022-04-05] MEDS: ATORVASTATIN 20 MG TAB PO SCH (21:36)
[2022-04-05 22:00] VITALS: BP 106/62
[2022-04-06 05:00] VITALS: BP 127/67
[2022-04-06] MEDS: methylPREDNISolone SOD SUCC 40 MG/ML VL IV SCH ×2 (06:03→14:39)
[2022-04-06] MEDS ORDERED: AZIT500T66 PO (08:50)
[2022-04-06] MEDS ORDERED: PRED20TA2 PO (08:50)
[2022-04-06 09:00] VITALS: BP 112/67
[2022-04-06] MEDS: ALBUTEROL SULF 2.5 MG/0.5ML(0.5%) NEB SOLN NEB SCH ×2 (09:20→12:00)
[2022-04-06] MEDS: IPRATROPIUM BROM 0.5 MG/2.5ML INH SOL NEB SCH ×2 (09:20→12:00)
[2022-04-06] MEDS: CARISOPRODOL 350 MG TAB PO SCH (10:00)
[2022-04-06] MEDS: NICOTINE 14 MG/24HR TOPICAL PATCH TD SCH (10:00)
[2022-04-06] MEDS: ISOSORBIDE MONONITRATE ER 60 MG TAB PO SCH (10:00)
[2022-04-06] MEDS: PANTOPRAZOLE 40 MG/10 ML VIAL INJ IV SCH (10:22)
[2022-04-06] MEDS: PREGABALIN CAPSULE 75 MG CAP PO SCH (10:23)
[2022-04-06] MEDS: CLOPIDOGREL BISULFATE 75 MG TAB PO SCH (10:23)
[2022-04-06] MEDS: cefTRIAXone 1GM/50ML D5W 50 ML IV SCH (10:23)
[2022-04-06] MEDS: DULoxetine HCL 30 MG CAP PO SCH (10:23)
[2022-04-06 12:58] VITALS: BP 138/82
[2022-04-06] MEDS: AZITHROMYCIN 500MG/ 250ML 250 ML IV SCH (13:10)
[2022-04-06] MEDS: SODIUM CHLORIDE 0.9% 1,000 ML IV SCH ×3 (13:10→14:39)
[2022-04-06] MEDS: METOPROLOL TARTRATE 50 MG TAB PO SCH (13:11)
[2022-04-06] MEDS: LISINOPRIL 10 MG TAB PO SCH (13:11)
[2022-04-06 15:54] VITALS: BP 138/82
== END 2022-04-06 16:28 | disposition home or self-care (01) | DRG 871 ==
LOC: ER 12:49 → TELE 15:34 → TELE-EAST 22:34
PROVIDERS: ADMIT Registered Nurse; ATTEND Family Medicine
DX: A41.9 Sepsis, unspecified organism (principal); J18.9 Pneumonia, unspecified organism; J44.1 Chronic obstructive pulmonary disease with (acute) exacerbation; I50.9 Heart failure, unspecified; E78.5 Hyperlipidemia, unspecified; E11.65 Type 2 diabetes mellitus with hyperglycemia; D63.8 Anemia in other chronic diseases classified elsewhere; I11.0 Hypertensive heart disease with heart failure; Z20.822 Contact with and (suspected) exposure to COVID-19; F17.210 Nicotine dependence, cigarettes, uncomplicated; I25.2 Old myocardial infarction; Z83.3 Family history of diabetes mellitus; Z80.9 Family history of malignant neoplasm, unspecified; Z82.49 Family history of ischemic heart disease and other diseases of the circulatory system; Z86.73 Personal history of transient ischemic attack (TIA), and cerebral infarction without residual deficits; Z91.011 Allergy to milk products
CPT/HCPCS: 36415; 71045; 71275; 80053; 80061; 83036; 83605; 83735; 83880; 84484; 85025; 85379; 85610; 87040; 93005; 94640; 96365; 96368; 96375; C9113; G0378; J0696

== ENCOUNTER → 2022-05-02 | Outpatient (CLI) | payer BC ==
[~2022-05-02] MED LIST changes: +AZIT500T66 PO; +PRED20TA2 PO
[2022-05-02 10:40] LABS: Albumin 3.2 g/dL (3.4-5.0); Calcium 8.7 mg/dL (8.5-10.1); Potassium 4.5 mmol/L (3.5-5.1)
[2022-05-02 10:45] LABS: BUN/Creatinine Ratio 12.9; Bilirubin, Total 0.3 mg/dL (0.2-1.0); Total Protein 6.5 g/dL (6.4-8.2)
== END | disposition home or self-care (01) ==
LOC: LAB 10:06
PROVIDERS: ATTEND Internal Medicine
DX: R25.2 Cramp and spasm (principal)
CPT/HCPCS: 36415; 80053; 82550; 83735

== ENCOUNTER 2022-11-03 13:01 | Inpatient (IN) | payer BC ==
[~2022-11-03] VITALS: Ht 162.6 cm; Wt 72.0 kg
[2022-11-03] MEDS ORDERED: ALBUTEROL SULF 2.5 MG/0.5ML(0.5%) NEB SOLN NEB ONE (13:30)
[2022-11-03] MEDS ORDERED: IPRATROPIUM BROM 0.5 MG/2.5ML INH SOL NEB ONE (13:30)
[2022-11-03 13:57] LABS: Basophils # (auto) 0.1 10 ^3/uL (0-0.2); Basophils % (auto) 1.2 % (0.0-2.0); Eosinophils # (auto) 0.2 10 ^3/uL (0-0.8); Eosinophils % (auto) 1.8 % (0.0-7.0); Hematocrit 40.7 % (36.0-46.0); Lymphocytes # (auto) 0.8 10 ^3/uL (0.4-5.4); Lymphocytes % (auto) 9.1 % (10.0-50.0); Mean Corpuscular Hgb Conc. 32.1 g/dL (32.0-36.0); Mean Corpuscular Volume 77.9 fL (80.0-100.0); Monocytes % (auto) 11.2 % (0.0-12.0); Neutrophils # (auto) 6.7 10 ^3/uL (1.6-8.6); Neutrophils % (auto) 76.7 % (37.0-80.0); Nucleated Red Blood Cells % 0.1 %; Red Blood Cells 5.22 10^6/uL (4.0-5.20); Red Cell Distribution Width 29.3 % (11.8-14.3); White Blood Cell 8.7 10^3/uL (4.4-10.8)
[2022-11-03] MEDS ORDERED: methylPREDNISolone SOD SUCC 125 MG/2 ML VL IV ONE (14:00)
[2022-11-03 14:30] LABS: Calcium 9.2 mg/dL (8.5-10.1); Potassium 4.1 mmol/L (3.5-5.1)
[2022-11-03 14:34] LABS: Albumin 3.6 g/dL (3.4-5.0); BUN/Creatinine Ratio 13.6 (10.0-20.0)
[2022-11-03 14:36] LABS: Bilirubin, Total 0.2 mg/dL (0.2-1.0); Total Protein 6.9 g/dL (6.4-8.2)
[2022-11-04] MEDS ORDERED: ACETAMINOPHEN 325 MG TAB PO PRN (01:00)
[2022-11-04] MEDS ORDERED: ALBUTEROL SULF 2.5 MG/0.5ML(0.5%) NEB SOLN NEB PRN (01:00)
[2022-11-04 01:57] VITALS: BP 132/91
[2022-11-04] MEDS ORDERED: IPRATROPIUM BROM 0.5 MG/2.5ML INH SOL NEB SCH (02:00)
[2022-11-04] MEDS ORDERED: ALBUTEROL SULF 2.5 MG/0.5ML(0.5%) NEB SOLN NEB SCH (02:00)
[2022-11-04] MEDS ORDERED: CLOPIDOGREL BISULFATE 75 MG TAB PO SCH (10:00)
[2022-11-04] MEDS ORDERED: DULoxetine HCL 30 MG CAP PO SCH (10:00)
[2022-11-04] MEDS ORDERED: PREGABALIN CAPSULE 75 MG CAP PO SCH (10:00)
[2022-11-04] MEDS ORDERED: ENOXAPARIN SOD 40 MG/0.4 ML SYRINGE SC SCH (10:00)
[2022-11-04] MEDS ORDERED: METOPROLOL TARTRATE 50 MG TAB PO SCH (10:00)
[2022-11-04] MEDS ORDERED: methylPREDNISolone SOD SUCC 125 MG/2 ML VL IV SCH (10:00)
[2022-11-04] MEDS ORDERED: ISOSORBIDE MONONITRATE ER 60 MG TAB PO SCH (10:00)
[2022-11-04] MEDS ORDERED: ATORVASTATIN 20 MG TAB PO SCH (22:00)
[2022-11-04] MEDS ORDERED: PATIENTS OWN MEDICATION (Atorvastatin Calcium 1 TAB) PO SCH (22:00)
== END 2022-11-04 01:57 | disposition left against medical advice (07) | DRG 189 ==
LOC: ER 13:01 → OVERFLOW 11-04 00:58
PROVIDERS: ADMIT Nurse Practitioner Family; ATTEND Nurse Practitioner Acute Care
DX: J96.00 Acute respiratory failure, unspecified whether with hypoxia or hypercapnia (principal); J44.1 Chronic obstructive pulmonary disease with (acute) exacerbation; E11.9 Type 2 diabetes mellitus without complications; F17.210 Nicotine dependence, cigarettes, uncomplicated; I11.0 Hypertensive heart disease with heart failure; I25.10 Atherosclerotic heart disease of native coronary artery without angina pectoris; Z53.29 Procedure and treatment not carried out because of patient's decision for other reasons; I50.9 Heart failure, unspecified; Z95.1 Presence of aortocoronary bypass graft; Z86.73 Personal history of transient ischemic attack (TIA), and cerebral infarction without residual deficits; Z80.9 Family history of malignant neoplasm, unspecified; Z82.49 Family history of ischemic heart disease and other diseases of the circulatory system; Z83.3 Family history of diabetes mellitus; Z98.51 Tubal ligation status
CPT/HCPCS: 36415; 71045; 80053; 83880; 84484; 85025; 93005; 94640; G0378

== ENCOUNTER → 2022-11-17 | Outpatient (CLI) | payer BC ==
[~2022-11-17] VITALS: Ht 162.6 cm; Wt 70.3 kg
[~2022-11-17] MED LIST changes: +ADENOSINE 59 MG in GIVE UN-DILUTED 0 ML IV ONE; +ADENOSINE 90 MG/30 ML INJ IV ONE; +ALBUTEROL SULF 2.5 MG/0.5ML(0.5%) NEB SOLN NEB ONE; +ALBUTEROL SULF 2.5 MG/0.5ML(0.5%) NEB SOLN ONE
== END | disposition home or self-care (01) ==
LOC: Rad HDHVI 13:37
PROVIDERS: ATTEND Internal Medicine Cardiovascular Disease
DX: I25.10 Atherosclerotic heart disease of native coronary artery without angina pectoris (principal); R07.9 Chest pain, unspecified; R06.02 Shortness of breath; I10 Essential (primary) hypertension; I25.2 Old myocardial infarction; E78.5 Hyperlipidemia, unspecified; D64.9 Anemia, unspecified; E11.8 Type 2 diabetes mellitus with unspecified complications; F17.210 Nicotine dependence, cigarettes, uncomplicated; Z95.1 Presence of aortocoronary bypass graft; Z82.49 Family history of ischemic heart disease and other diseases of the circulatory system
CPT/HCPCS: 78452; 93005; 94640; 96374; 96375; A9500; J0153